=== PATIENT | female | born 1995 | race Caucasian/White ===

== ENCOUNTER 2020-10-10 10:45 | Emergency (ER) | payer OTHER ==
[~2020-10-10] VITALS: Ht 154.9 cm; Wt 55.5 kg
[2020-10-10 10:45] VITALS: BP 112/80
[~2020-10-10 10:45] MED LIST: SODIUM CHLORIDE 0.9% INJ 10 ML SYR IV SCH
[2020-10-10] MEDS ORDERED: LANTINJ4 SC (10:55)
[2020-10-10] MEDS ORDERED: NOVOINJ SC (10:55)
[2020-10-10] MEDS ORDERED: PROZ40CA PO (10:55)
[2020-10-10] MEDS ORDERED: PROM50TA4 PO (10:55)
[2020-10-11] MEDS ORDERED: SODIUM CHLORIDE 0.9% INJ 10 ML SYR IV SCH (09:00)
== END 2020-10-10 11:48 | disposition home or self-care (01) ==
LOC: M ED 10:45
DX: Z45.2 Encounter for adjustment and management of vascular access device (principal); E10.9 Type 1 diabetes mellitus without complications; K31.84 Gastroparesis; Z79.4 Long term (current) use of insulin; Z79.899 Other long term (current) drug therapy; Z88.0 Allergy status to penicillin; Z88.6 Allergy status to analgesic agent; Z88.8 Allergy status to other drugs, medicaments and biological substances
CPT/HCPCS: 96523; 99283; J1642

== ENCOUNTER → 2020-11-27 | Outpatient (REF) | payer OTHER ==
[~2020-11-27] MED LIST changes: +LANTINJ4 SC; +NOVOINJ SC; +PROM50TA4 PO; +PROZ40CA PO; -SODIUM CHLORIDE 0.9% INJ 10 ML SYR IV SCH
[2020-11-27 17:50] LABS: CREATININE, URINE 72.3 MG/DL; MAU/CREAT RATIO 153.5 MCG/MG (0.0-30.0)
== END ==
LOC: M LAB REF 16:45
PROVIDERS: ATTEND Nurse Practitioner Family
DX: E10.319 Type 1 diabetes mellitus with unspecified diabetic retinopathy without macular edema (principal)

== ENCOUNTER 2021-01-06 06:07 | Emergency (ER) | payer OTHER ==
[~2021-01-06] VITALS: Ht 154.9 cm; Wt 58.0 kg
[2021-01-06] MEDS ORDERED: NS 1,000 ML IV ONE (06:25)
--- NOTE | 2021-01-06 08:00 | REP ---
INDICATION: verify port placement. COMPARISON: None. TECHNIQUE: It sitting AP portable chest x-ray: Single-view. FINDINGS: Monitoring electrodes are seen. There is a left-sided subclavian Besolk-S-Htpc catheter noted with its tip in the expected location of superior vena cava. There are clips in right upper quadrant the abdomen. The lung thomas are clear. The pleural angles are sharp. Heart is not enlarged. Pulmonary vasculature is not increased. No bony abnormality is seen. IMPRESSION: Left-sided Kkezmr-L-Dwhx catheter with its tip in the expected location of the SVC. No active cardiopulmonary disease. Right upper quadrant clips. <Electronically signed by Akil Cortés > 01/06/21 [id number]
[2021-01-06 08:37] LABS: VENOUS BASE EXCESS -0.9 (-2.0-2.0); VENOUS O2 SATURATION 91.3 % (60.0-80.0); VENOUS PARTIAL PRESSURE CO2 41.1 mmHg (38.0-50.0); VENOUS PARTIAL PRESSURE O2 57.4 mmHg (30.0-50.0); VENOUS PH 7.385 UNITS (7.330-7.430); VENOUS STANDARD HCO3 23.5 MEQ/L; VENOUS TOTAL CO2 25.3 MEQ/L (24.0-28.0)
[2021-01-06 08:46] LABS: BASO # 0.1 10^3/uL (0.0-0.2); EOS # 0.2 10^3/uL (0.0-0.5); EOS % 2.3 % (0.0-3.0); HEMATOCRIT 45.6 % (36.0-47.0); HEMOGLOBIN 15.1 g/dl (12.0-15.5); LYMPH # 2.2 10^3/uL (1.5-5.0); LYMPH % 27.7 % (24.0-44.0); MEAN CORPUSCULAR HEMOGLOBIN 27.2 pg (27.0-33.0); MEAN CORPUSCULAR HGB CONC 33.1 g/dl (32.0-36.5); MEAN CORPUSCULAR VOLUME 82.2 fl (80.0-96.0); MONO # 0.5 10^3/uL (0.0-0.8); MONO % 5.8 % (2.0-8.0); NEUTROPHILS % 62.9 % (36.0-66.0); PLATELET COUNT, AUTOMATED 234 10^3/uL (150-450); RED BLOOD COUNT 5.55 10^6/uL (4.00-5.40)
[2021-01-06 09:07] LABS: ALT/SGPT 17 U/L (12-78); BILIRUBIN,DIRECT 0.1 MG/DL (0.0-0.2); BILIRUBIN,TOTAL 0.3 MG/DL (0.2-1.0); BLOOD UREA NITROGEN 14 MG/DL (7-18); CALCIUM LEVEL 9.3 MG/DL (8.5-10.1); CARBON DIOXIDE LEVEL 26 MEQ/L (21-32); CHLORIDE LEVEL 106 MEQ/L (98-107); CREATININE FOR GFR 0.79 MG/DL (0.55-1.30); ETHYL ALCOHOL (ETHANOL) < 0.003 % (0.000-0.010); GLOMERULAR FILTRATION RATE > 60.0 (>60); GLUCOSE, FASTING 140 MG/DL (70-100); LIPASE 26 U/L (73-393); PHOSPHORUS LEVEL 3.3 MG/DL (2.5-4.9); POTASSIUM SERUM 4.2 MEQ/L (3.5-5.1); SODIUM LEVEL 136 MEQ/L (136-145); TOTAL PROTEIN 7.5 GM/DL (6.4-8.2)
[2021-01-06] MEDS ORDERED: PROMETHAZINE INJ 25 MG/ML VIAL (J2550) IV ONE (09:45)
[2021-01-06 10:17] LABS: OSMOLALITY SERUM 291 MOSM/KG (275-295)
[2021-01-06 10:31] LABS: ACETONE/KETONE 5.16 MG/DL (<2.81)
[2021-01-06 11:00] LABS: AMPHETAMINES LEVEL URINE NEGATIVE (NEGATIVE); BARBITURATES URINE NEGATIVE (NEGATIVE); BENZODIAZEPINES URINE NEGATIVE (NEGATIVE); CANNABINOIDS URINE POSITIVE (NEGATIVE); COCAINE METABOLITE URINE NEGATIVE (NEGATIVE); METHADONE URINE NEGATIVE (NEGATIVE); OPIATES URINE NEGATIVE (NEGATIVE); PHENCYCLIDINE URINE NEGATIVE (NEGATIVE)
[2021-01-06] MEDS ORDERED: MACR100C43 PO (11:41)
[2021-01-06 11:45] VITALS: BP 133/76
--- NOTE | 2021-01-07 03:11 | ECGEPIP ---
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
== END 2021-01-06 12:10 | disposition home or self-care (01) ==
LOC: M ED 06:07
DX: E10.65 Type 1 diabetes mellitus with hyperglycemia (principal); F12.19 Cannabis abuse with unspecified cannabis-induced disorder; N39.0 Urinary tract infection, site not specified; R00.0 Tachycardia, unspecified; F33.9 Major depressive disorder, recurrent, unspecified; F41.9 Anxiety disorder, unspecified; Z79.899 Other long term (current) drug therapy; Z79.4 Long term (current) use of insulin; Z88.0 Allergy status to penicillin; Z88.8 Allergy status to other drugs, medicaments and biological substances
CPT/HCPCS: 36415; 71045; 80048; 80076; 80307; 81001; 82010; 82077; 82803; 83036; 83605; 83690; 83735; 83930; 84100; 84702; 85025; 87088; 87186; 93005; 93041; 94760; 96361; 96374; 96375; 99285; J1642

== ENCOUNTER 2021-06-14 08:47 | Emergency (ER) | payer OTHER ==
[~2021-06-14] VITALS: Ht 165.1 cm; Wt 57.7 kg
[~2021-06-14 08:47] MED LIST changes: +MACR100C43 PO
[2021-06-14] MEDS ORDERED: PROMETHAZINE INJ 25 MG/ML VIAL (J2550) IV ONE (09:20)
[2021-06-14] MEDS ORDERED: NS 1,000 ML IV ONE (09:25)
[2021-06-14 10:14] LABS: BASO # 0.1 10^3/uL (0.0-0.2); BASO % 0.6 % (0.0-1.0); EOS # 0.1 10^3/uL (0.0-0.5); EOS % 0.7 % (0.0-3.0); HEMATOCRIT 42.6 % (36.0-47.0); HEMOGLOBIN 13.5 g/dl (12.0-15.5); LYMPH # 1.2 10^3/uL (1.5-5.0); MEAN CORPUSCULAR HEMOGLOBIN 27.4 pg (27.0-33.0); MEAN CORPUSCULAR HGB CONC 31.7 g/dl (32.0-36.5); MEAN CORPUSCULAR VOLUME 86.6 fl (80.0-96.0); MONO # 0.4 10^3/uL (0.0-0.8); MONO % 2.8 % (2.0-8.0); NEUTROPHILS # 10.5 10^3/uL (1.5-8.5); NEUTROPHILS % 85.4 % (36.0-66.0); PLATELET COUNT, AUTOMATED 213 10^3/uL (150-450); RED BLOOD COUNT 4.92 10^6/uL (4.00-5.40); WHITE BLOOD COUNT 12.3 10^3/uL (4.0-10.0)
[2021-06-14] MEDS ORDERED: PROCHLORPERAZINE 10MG/2ML VIAL (J0780 PER 1) IV STA (10:22)
[2021-06-14] MEDS ORDERED: diphenhydrAMINE 50MG/ML VIAL (J1200) IV STA (10:22)
[2021-06-14 10:28] LABS: INR 0.84; PROTHROMBIN TIME 11.9 SECONDS (12.7-14.5)
[2021-06-14 10:38] LABS: RSV AMPLIFICATION NEGATIVE (NEGATIVE)
[2021-06-14 12:15] VITALS: BP 152/99
[2021-06-14 12:16] LABS: ALBUMIN 3.9 GM/DL (3.2-5.2); ALT/SGPT 23 U/L (12-78); BILIRUBIN,DIRECT 0.2 MG/DL (0.0-0.2); BILIRUBIN,TOTAL 0.7 MG/DL (0.2-1.0); BLOOD UREA NITROGEN 21 MG/DL (7-18); CALCIUM LEVEL 9.3 MG/DL (8.5-10.1); CARBON DIOXIDE LEVEL 20 MEQ/L (21-32); CHLORIDE LEVEL 101 MEQ/L (98-107); CREATININE FOR GFR 0.89 MG/DL (0.55-1.30); GLOMERULAR FILTRATION RATE > 60.0 (>60); GLUCOSE, FASTING 542 MG/DL (70-100); LIPASE 30 U/L (73-393); POTASSIUM SERUM 4.3 MEQ/L (3.5-5.1); SODIUM LEVEL 137 MEQ/L (136-145); TOTAL PROTEIN 7.6 GM/DL (6.4-8.2)
[2021-06-14 12:20] LABS: HCG, SERUM QUALITATIVE NEGATIVE (NEGATIVE)
[2021-06-14] MEDS ORDERED: SODIUM CHLORIDE 0.9% INJ 10 ML SYR IV PRN (12:25)
[2021-06-14] MEDS ORDERED: ERGO500029 PO (12:28)
[2021-06-14] MEDS ORDERED: PROM25TA12 PO (12:28)
[2021-06-14] MEDS ORDERED: OLAN1TAB16 PO (12:28)
[2021-06-14] MEDS ORDERED: HOME MED LIST COMPLETE! XX SCH (12:30)
--- NOTE | 2021-06-14 17:17 | ECGEPIP ---
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
== END 2021-06-14 12:33 | disposition left against medical advice (07) ==
LOC: M ED 08:47
DX: E10.65 Type 1 diabetes mellitus with hyperglycemia (principal); K92.2 Gastrointestinal hemorrhage, unspecified; Z79.899 Other long term (current) drug therapy; Z79.4 Long term (current) use of insulin; Z88.0 Allergy status to penicillin; Z88.8 Allergy status to other drugs, medicaments and biological substances; F12.20 Cannabis dependence, uncomplicated

== ENCOUNTER 2021-06-14 20:10 | Inpatient (IN) | payer OTHER ==
[~2021-06-14] VITALS: Ht 154.9 cm; Wt 55.8 kg
[~2021-06-14 20:10] MED LIST changes: +ERGO500029 PO; +OLAN1TAB16 PO; +PROM25TA12 PO
[2021-06-14] MEDS ORDERED: PROMETHAZINE INJ 25 MG/ML VIAL (J2550) IM ONE (21:55)
[2021-06-14] MEDS ORDERED: NS 1,000 ML IV ONE ×2 (22:15→22:55)
[2021-06-14 22:24] LABS: BASO # 0.1 10^3/uL (0.0-0.2); BASO % 0.6 % (0.0-1.0); HEMOGLOBIN 13.3 g/dl (12.0-15.5); LYMPH # 1.3 10^3/uL (1.5-5.0); LYMPH % 12.5 % (24.0-44.0); MEAN CORPUSCULAR HEMOGLOBIN 27.5 pg (27.0-33.0); MEAN CORPUSCULAR HGB CONC 32.4 g/dl (32.0-36.5); MEAN CORPUSCULAR VOLUME 84.7 fl (80.0-96.0); MONO # 0.3 10^3/uL (0.0-0.8); MONO % 2.8 % (2.0-8.0); NEUTROPHILS # 8.7 10^3/uL (1.5-8.5); NEUTROPHILS % 83.6 % (36.0-66.0); PLATELET COUNT, AUTOMATED 226 10^3/uL (150-450); RED BLOOD COUNT 4.84 10^6/uL (4.00-5.40); WHITE BLOOD COUNT 10.4 10^3/uL (4.0-10.0)
[2021-06-14 22:45] LABS: VENOUS BASE EXCESS -3.4 (-2.0-2.0); VENOUS HCO3 20.5 MEQ/L (23.0-27.0); VENOUS PARTIAL PRESSURE CO2 33.7 mmHg (38.0-50.0); VENOUS PARTIAL PRESSURE O2 68.7 mmHg (30.0-50.0); VENOUS PH 7.403 UNITS (7.330-7.430); VENOUS STANDARD HCO3 21.6 MEQ/L; VENOUS TOTAL CO2 21.6 MEQ/L (24.0-28.0)
[2021-06-14] MEDS ORDERED: PANTOPRAZOLE 40MG VIAL (C9113 PER 1) IV ONE (23:00)
[2021-06-14] MEDS: MORPHINE 2 MG/ML 1ML VIAL (J2270) IV PRN ×2 (23:04→23:19)
[2021-06-14 23:17] LABS: HEMOGLOBIN A1c 12.1 %; OSMOLALITY SERUM 313 MOSM/KG (275-295)
[2021-06-14 23:20] LABS: HCG, SERUM QUALITATIVE NEGATIVE (NEGATIVE)
[2021-06-14 23:26] LABS: ALBUMIN 3.7 GM/DL (3.2-5.2); ALT/SGPT 20 U/L (12-78); BILIRUBIN,DIRECT 0.1 MG/DL (0.0-0.2); BILIRUBIN,TOTAL 0.4 MG/DL (0.2-1.0); BLOOD UREA NITROGEN 19 MG/DL (7-18); CALCIUM LEVEL 8.8 MG/DL (8.5-10.1); CARBON DIOXIDE LEVEL 23 MEQ/L (21-32); CHLORIDE LEVEL 102 MEQ/L (98-107); CREATININE FOR GFR 0.95 MG/DL (0.55-1.30); GLOMERULAR FILTRATION RATE > 60.0 (>60); GLUCOSE, FASTING 393 MG/DL (70-100); LIPASE 44 U/L (73-393); POTASSIUM SERUM 3.7 MEQ/L (3.5-5.1); SODIUM LEVEL 139 MEQ/L (136-145); TOTAL PROTEIN 7.2 GM/DL (6.4-8.2)
[2021-06-14] MEDS ORDERED: HOME MED LIST COMPLETE! XX SCH (23:35)
[2021-06-15] VITALS (7 sets, daily range): BP systolic 104–190; BP diastolic 59–107
[2021-06-15] MEDS ORDERED: ISOVUE-370 76% 100ML VIAL As Ordered ONE (00:06)
[2021-06-15 00:26] LABS: ACETONE/KETONE > 46.00 MG/DL (<2.81)
[2021-06-15] MEDS ORDERED: diphenhydrAMINE 50MG/ML VIAL (J1200) IV STA (01:29)
[2021-06-15] MEDS ORDERED: PROCHLORPERAZINE 10MG/2ML VIAL (J0780 PER 1) IV ONE (01:30)
--- NOTE | 2021-06-15 01:38 | REPVR ---
PROCEDURE INFORMATION: Exam: XR Chest Exam date and time: 06/15/2021 12:32 AM Age: 26 years old Clinical indication: Other: Dka TECHNIQUE: Imaging protocol: XR of the chest. Views: 1 view. COMPARISON: FL Chest, 1 view 01/06/2021 7:49 AM FINDINGS: Tubes, catheters and devices: No change in position of tunneled vascular catheter Lungs: Degree of lung inflation is normal. No evidence of pulmonary edema. No focal consolidation or parenchymal lung mass. Pleural spaces: No pleural effusion or pneumothorax. Heart/Mediastinum: Cardiac silhouette appears normal. No adenopathy or hilar mass. Bones/joints: Osseous structures show no concerning abnormality. IMPRESSION: No acute or focal cardiopulmonary process. Electronically signed by: Homer Painting On 06/15/2021 01:38:25 AM
--- NOTE | 2021-06-15 01:46 | REPVR ---
PROCEDURE INFORMATION: Exam: CT Abdomen And Pelvis Without Contrast Exam date and time: 06/15/2021 12:55 AM Age: 26 years old Clinical indication: Nausea and vomiting; Additional info: Abdominal pain TECHNIQUE: Imaging protocol: Computed tomography of the abdomen and pelvis without contrast. Radiation optimization: All CT scans at this facility use at least one of these dose optimization techniques: automated exposure control; mA and/or kV adjustment per patient size (includes targeted exams where dose is matched to clinical indication); or iterative reconstruction. COMPARISON: CR PORTABLE CHEST X-RAY 06/15/2021 12:22 AM FINDINGS: Lungs: No suspicious mass or airspace process in the visualized lung bases. Liver: Noncontrast liver shows no obvious lesion. Gallbladder and bile ducts: Gallbladder is surgically absent. Pancreas: Noncontrast pancreas shows no obvious mass or adjacent fluid. Spleen: Noncontrast spleen shows no obvious focal deformity. Adrenal glands: Adrenal glands are normal in appearance. Kidneys and ureters: Kidneys show no stone or hydronephrosis. Stomach and bowel: No evidence of small bowel obstruction. No evidence of acute diverticulitis. Appendix: Appendix is not visualized. Cecal tip suture line suggests prior appendix resection. Intraperitoneal space: No pneumoperitoneum. Vasculature: . No abdominal aortic aneurysm. Lymph nodes: No enlarged lymph nodes. Urinary bladder: Urinary bladder is distended. Reproductive: Female reproductive organs appear unremarkable. Bones/joints: Bony structures show no acute fracture or destructive process. Soft tissues: Unremarkable. Other findings: Limited evaluation without enteric or IV contrast. IMPRESSION: 1. No evidence of renal stone or obstruction. 2. Urinary bladder distension which may be voluntary Electronically signed by: Homer Painting On 06/15/2021 01:45:59 AM
[2021-06-15] MEDS ORDERED: GLUCOSE 4GM CHEW TABLET PO PRN (03:30)
[2021-06-15] MEDS ORDERED: ONDANSETRON 4MG/2ML VIAL IV PRN (03:30)
[2021-06-15] MEDS ORDERED: DEXTROSE 50% 50 ML SYRINGE IV PRN (03:30)
[2021-06-15] MEDS ORDERED: GLUCAGON INJ 1MG VIAL SC PRN (03:30)
[2021-06-15] MEDS ORDERED: PROMETHAZINE INJ 25 MG/ML VIAL (J2550) IV PRN (03:30)
[2021-06-15] MEDS ORDERED: NS 1,000 ML IV SCH (03:30)
[2021-06-15] MEDS ORDERED: ACETAMINOPHEN TAB 650MG DOSE (2X325MG) PO PRN (03:30)
[2021-06-15] MEDS ORDERED: ONDANSETRON 4MG/2ML VIAL IV SCH (04:00)
[2021-06-15 04:14] LABS: RSV AMPLIFICATION NEGATIVE (NEGATIVE)
[2021-06-15] MEDS ORDERED: LORazepam 2 MG/ML VIAL IV STA (04:18)
[2021-06-15] MEDS ORDERED: LORazepam 2 MG/ML VIAL As Ordered ONE (04:26)
[2021-06-15] MEDS: HumaLOG INSULIN (NovoLOG) PER UNIT SC SCH ×5 (04:36→19:40)
--- NOTE | 2021-06-15 04:55 | HPEPDOC ---
General Date of Admission 06/15/21 Date of Service: Jun 15, 2021 Chief Complaint Nausea/Vomiting. History of Present Illness Moon Patino is a 26-year-old female with significant history of diabetes, anxiety disorder, gastroparesis who arrives with intractable nausea vomiting since 6 AM. Patient exam extremely limited by patient violently dry heaving and reporting she is having an active panic attack upon entrance to exam room. Patient notably hyperactive and tachypneic. She reports that she is claustrophobic and was offered to open door to help with the sensation and to proceed with exam and patient bolted to Claudio. Patient was encouraged to proceed back into her room and door could remain slightly open to decrease claustrophobia and she finally did agree. Patient calmed somewhat with soothing tones and plan for small Ativan dose to help with her dry heaving. Patient still sporadically dry heaving in bucket next to bed during exam. [facility] assisted with patient's boyfriend at bedside. He reports that patient violently started having nausea/vomiting at 6 AM. Therefore, patient has not had any of her home medications since 06/13, which includes medication for anxiety. Patient improve mood with further calming and de-escalation techniques and she reports she does have a history of gastroparesis and this feels similar to as a previous episode. She has seen Dr. Gillis with endocrinology but is looking for a new provider as she had discord with Dr. Madden reportedly. Patient reports that her blood sugars "have been good". She reports compliance with her medications. She denies smoking but does endorse marijuana use - describes no increase or sudden cessation recently prior to hyperemesis event. She does endorse a recent tooth pulling but as she is allergic to amoxicillin she was only given hydrocodone from the dentist. Otherwise she does note vaguely increased personal stressors but does not specify what these are.she reports that she has an allergy to Reglan which has limited her treatment of gastroparesis. Besides the discomfort abdominal pain/soreness from dry heaving and the sensation of a panic attack ( typically includes SOB and palpitation) -pt oth erwise denies recent wyatt, sinus congestion, sore throat, productive cough, sob, chest pain, d, weakness, sensory changes or syncope. Through calling de-escalation techniques patient was able to relax and asked for ice chips at end of exam. Home Medications Scheduled Ergocalciferol (Vitamin D2) (Vitamin D2) 50,000 Units Cap, 50,000 UNITS PO QWEEK, (Reported) MONDAYS Fluoxetine HCl (Prozac) 40 Mg Capsule, 40 MG PO BID, (Reported) Insulin Aspart (Novolog) 100 Unit/1 Ml Cartridge, 1 DOSE SC AC, (Reported) PER SLIDING SCALE Insulin Glargine,Hum.rec.anlog (Lantus Solostar) 100 Unit/1 Ml Insuln.pen, 20 UNIT SC QHS, (Reported) Olanzapine (Olanzapine) 5 Mg Tablet, 5 MG PO DAILY, (Reported) Scheduled PRN Promethazine HCl (Promethazine HCl) 25 Mg Tablet, 25 MG PO Q4H PRN for NAUSEA OR VOMITING, (Reported) Allergies Coded Allergies: amoxicillin (Verified Allergy, Severe, Hives/Throat Swelling, 06/14/21) chlorpromazine (Verified Allergy, Intermediate, HIVES, 06/14/21) HAS TAKEN COMPAZINE WITH NO ISSUES haloperidol (Verified Allergy, Intermediate, HIVES, 06/14/21) metoclopramide (Verified Allergy, Intermediate, HIVES, 06/14/21) ondansetron (Verified Allergy, Mild, hives, 06/17/21) Penicillins (Verified Allergy, Unknown, 10/10/20) ketorolac (Verified Allergy, Unknown, 01/06/21) ibuprofen (Verified Adverse Reaction, Intermediate, GI Bleed, 06/14/21) prochlorperazine (Verified Adverse Reaction, Mild, 06/14/21) Itchy - but can use benedryl as premedicate Past Medical History Medical History Diabetes, gastroparesis, anxiety Surgical History Cholecystectomy and appendectomy Family History Significant Family History: No pertinent family hx Social History * Smoker: Denies Alcohol: Denies Drugs: marijuana Recent Travel/Sick Contacts: Denies: Recent travel, Recent sick contacts Psychosocial History: Anxiety A-FIB/CHADSVASC A-FIB History Current/History of A-Fib/PAF?: No Current PO Anticoag Therapy: No Review of Systems Constitutional: Denies: Chills, Fever, Night Sweats Eyes: Denies: Pain, Vision change ENT: Denies: Head Aches, Ear Pain, Dysphagia Skin: Denies: Rash, Lesions, Breakdown Pulmonary: Denies: Dyspnea, Cough Cardiovascular: Reports: Palpitations; Denies: Chest Pain, Orthopnea, Paroxysmal Noc. Dyspnea, Lt Headedness Gastrointestinal: Reports: Nausea, Vomiting, Abdominal Pain; Denies: Diarrhea Genitourinary: Denies: Dysuria, Frequency, Incontinence, Retention Hematologic: Denies: Bruising, Bleeding Excessively Musculoskeletal: Denies: Neck Pain, Back Pain, Joint Pain, Muscle Pain, Spasms Neurological: Denies: Weakness, Numbness, Change in speech, Confusion Psych: Reports: Anxiety; Denies: Depression, Memory Issues Physical Examination General Exam: Positive: Alert, Other (Notable panic attack) Eye Exam: Positive: PERRLA, Conjunctiva & lids normal, EOMI; Negative: Sclera icteric ENT Exam: Positive: Atraumatic, Mucous membr. moist/pink, Pharynx Normal Neck Exam: Positive: Supple; Negative: JVD, thyromegaly Chest Exam: Positive: Clear to auscultation, Normal air movement Heart Exam: Positive: Tachycardic, Regular Rhythm, Normal S1, Normal S2; Negative: Murmurs, Rubs Telemetry: Positive: Sinus, Tachycardia Abdomen Exam: Positive: BS Hyperactive, Soft; Negative: Tenderness, Hepatospenomegaly Extremity Exam: Positive: Normal pulses; Negative: Clubbing, Cyanosis, Edema Skin Exam: Positive: Nl turgor and temperature; Negative: Breakdown, Lesion Neuro Exam: Positive: Normal Gait, Normal Speech, Cranial Nerves 3-12 NL, Reflexes 2+ Psych Exam: Positive: Mental status NL, Anxiety, Oriented x 3 Vital Signs Vital Signs Date Time Temp Pulse Resp B/P (MAP) Pulse Ox O2 Delivery O2 Flow Rate FiO2 06/15/21 02:13 98 18 99 Room Air 06/15/21 01:01 98.7 102/60 (74) Laboratory Data Labs 24H Laboratory Tests 2 06/14/21 20:59: Immature Granulocyte % (Auto) 0.5, Neutrophils (%) (Auto) 83.6H, Lymphocytes (%) (Auto) 12.5L, Monocytes (%) (Auto) 2.8, Eosinophils (%) (Auto) 0.0, Basophils (%) (Auto) 0.6, Neutrophils # (Auto) 8.7H, Lymphocytes # (Auto) 1.3L, Monocytes # (Auto) 0.3, Eosinophils # (Auto) 0.0, Basophils # (Auto) 0.1, Nucleated Red Blood Cells % (auto) 0.0 06/14/21 21:00: Urine Color YELLOW, Urine Appearance HAZY, Urine pH 6.0, Urine Specific [place] 1.027, Urine Protein 1+H, Urine Glucose (UA) 3+H, Urine Ketones 2+H, Urine Blood 1+H, Urine Nitrite NEGATIVE, Urine Bilirubin NEGATIVE, Urine Urobilinogen 0.2, Urine Leukocyte Esterase NEGATIVE, Urine WBC (Auto) 2, Urine RBC (Auto) 4H, Urine Hyaline Casts (Auto) 0, Urine Bacteria (Auto) NEGATIVE, Urine Squamous Epithelial Cells 7, Urine Sperm (Auto) 06/14/21 22:32: Blood Gas Bicarbonate Standard 21.6, Venous Blood pH 7.403, Venous Blood Partial Pressure CO2 33.7L, Venous Blood Partial Pressure O2 68.7H, Venous Blood Total Carbon Dioxide 21.6L, Venous Blood HCO3 20.5L, Venous Blood Oxygen Saturation 94.0H, Venous Blood Base Excess -3.4L, Anion Gap 14, Glomerular Filtration Rate > 60.0, Estimated Mean Plasma Glucose 301H, Hemoglobin A1c 12.1, Osmolality 313H, Calcium Level 8.8, Total Bilirubin 0.4, Direct Bilirubin 0.1, Aspartate Amino Transf (AST/SGOT) 15, Alanine Aminotransferase (ALT/SGPT) 20, Alkaline Phosphatase 93, Total Protein 7.2, Albumin 3.7, Albumin/Globulin Ratio 1.1L, Lipase 44L, Human Chorionic Gonadotropin, Qual NEGATIVE, B-Hydroxybutyrate > 46.00H 06/15/21 03:24: CBC/BMP Laboratory Tests 06/14/21 20:59 06/14/21 22:32 Microbiology Microbiology 06/14/21 Blood Culture, Received Pending 06/14/21 Blood Culture, Received Pending Assessment/Plan 1. Intractable nausea vomiting secondary to gastroparesis: -Likely aggravated by anxiety component as well -Monitor patient, telemetry -Electrolyte management and repletion per protocol -Hydration -Scheduled Zofran and as needed Phenergan -Clear liquid diet with advance as tolerated -A.m. lab 2. Hyperglycemia in diabetic: Thankfully not in DKA. -Monitor patient, Accu-Chek every 4 hours with sliding scale insulin. -Continue long-acting once reconciled -A.m. lab. Check A1c -Goal for diabetic diet -Encourage endocrinology appointment at [facility] [place]. 3. SIRS: With tachycardia and mild leukocytosis: WBC 10.4. Not uncommon in daily smoker (patient describes marijuana use -not cigarettes ). UA and chest x -ray negative. Could be reactive given above. Patient did endorse a recent tooth pulled on the upper left. Does not appear with abscess upon inspection. Patient notably anxious during exam and this could explain the tachycardia as well as dehydration from hyperemesis. -Check procalcitonin. Will hold off on antibiotics at present. -Check magnesium given tachycardia. 4. Anxiety: Patient with acute anxious episode/panic attack during exam. -Plan to monitor patient encourage de-escalation techniques and expression. -Did offer one-time Ativan dose as this could also help with nausea vomiting. -continue patient's home medications and consider psych consult given patient reports some increase home stressors -UDS pending for consideration of withdrawal type behavior 5. Marijuana use: Encourage cessation as this may be contributing to hyperemesis. UDS pending DVT: Uzair score low, plan for early ambulation CODE STATUS: Full Dispo planning: Home once tolerating p.o. Plan / VTE VTE Prophylaxis Ordered?: No VTE Exclusion Mechanical Proph: Low Risk for VTE VTE Exclusion Pharmacological: At Low Risk for VTE CADY SHINE NP Jun 15, 2021 03:43 JADEN DIAL MD Jun 22, 2021 06:30
[2021-06-15 06:21] LABS: BASO % 0.3 % (0.0-1.0); EOS # 0.2 10^3/uL (0.0-0.5); EOS % 1.9 % (0.0-3.0); HEMOGLOBIN 11.4 g/dl (12.0-15.5); LYMPH # 1.4 10^3/uL (1.5-5.0); LYMPH % 11.7 % (24.0-44.0); MEAN CORPUSCULAR HEMOGLOBIN 27.6 pg (27.0-33.0); MEAN CORPUSCULAR HGB CONC 31.7 g/dl (32.0-36.5); MEAN CORPUSCULAR VOLUME 87.2 fl (80.0-96.0); MONO # 0.7 10^3/uL (0.0-0.8); NEUTROPHILS # 9.6 10^3/uL (1.5-8.5); NEUTROPHILS % 79.6 % (36.0-66.0); PLATELET COUNT, AUTOMATED 217 10^3/uL (150-450); RED BLOOD COUNT 4.13 10^6/uL (4.00-5.40); WHITE BLOOD COUNT 12.1 10^3/uL (4.0-10.0)
[2021-06-15 06:28] LABS: AMPHETAMINES LEVEL URINE NEGATIVE (NEGATIVE); BARBITURATES URINE NEGATIVE (NEGATIVE); BENZODIAZEPINES URINE NEGATIVE (NEGATIVE); CANNABINOIDS URINE NEGATIVE (NEGATIVE); COCAINE METABOLITE URINE NEGATIVE (NEGATIVE); METHADONE URINE NEGATIVE (NEGATIVE); OPIATES URINE NEGATIVE (NEGATIVE); PHENCYCLIDINE URINE NEGATIVE (NEGATIVE)
[2021-06-15 06:38] LABS: BLOOD UREA NITROGEN 17 MG/DL (7-18); CALCIUM LEVEL 8.1 MG/DL (8.5-10.1); CARBON DIOXIDE LEVEL 19 MEQ/L (21-32); CHLORIDE LEVEL 107 MEQ/L (98-107); CREATININE FOR GFR 0.75 MG/DL (0.55-1.30); GLOMERULAR FILTRATION RATE > 60.0 (>60); GLUCOSE, FASTING 389 MG/DL (70-100); POTASSIUM SERUM 3.6 MEQ/L (3.5-5.1); SODIUM LEVEL 141 MEQ/L (136-145)
--- NOTE | 2021-06-15 07:44 | ECGEPIP ---
[facility] - ED Test Date: 2021-06-14 Pat Name: ANNALISA TA Department: Room: [place] [address] Gender: Female Temporary Administrative Assistant: MIKE JEROMEB: 1995 Requested By: JULIANO Moore Order Number: [id number] Reading MD: Juliano Lopez Measurements Intervals [place] Rate: 125 P: 67 OK: 142 QRS: 82 QRSD: 72 T: 77 QT: 338 QTc: 487 Interpretive Statements Sinus tachycardia Nonspecific ST and T wave abnormality Similar to tracing done 06-14-21 at 10:27 Electronically Signed on 06-15-2021 7:44:14 EDT by Juliano Lopez
[2021-06-15] MEDS ORDERED: HumaLOG INSULIN (NovoLOG) PER UNIT SC STA (08:00)
[2021-06-15] MEDS ORDERED: NS 1,000 ML IV ONE (08:25)
[2021-06-15] MEDS ORDERED: diphenhydrAMINE 50MG/ML VIAL (J1200) IV PRN (08:35)
[2021-06-15] MEDS: FLUoxetine 20 MG CAP PO SCH ×2 (08:56→19:36)
[2021-06-15] MEDS: PROMETHAZINE INJ 25 MG/ML VIAL (J2550) IV SCH ×3 (08:56→19:39)
[2021-06-15] MEDS: LEVEMIR (INSULIN DETEMIR) 1 UNITS/0.01ML SC SCH ×2 (08:56→21:00)
[2021-06-15] MEDS: OLANZapine 5 MG TAB PO SCH (08:56)
[2021-06-15] MEDS: NS 1,000 ML IV SCH ×2 (08:58→10:00)
[2021-06-15] MEDS ORDERED: SLF 3 ML SYR IV PRN (09:20)
[2021-06-15] MEDS ORDERED: MORPHINE 2 MG/ML 1ML VIAL (J2270) IV ONE (10:15)
[2021-06-15] MEDS ORDERED: NALOXONE INJ 0.4MG/1ML VIAL (J2310 PER 1MG) IV PRN (10:15)
[2021-06-15 10:38] LABS: ACETONE/KETONE 30.21 MG/DL (<2.81); BLOOD UREA NITROGEN 13 MG/DL (7-18); CALCIUM LEVEL 7.4 MG/DL (8.5-10.1); CARBON DIOXIDE LEVEL 19 MEQ/L (21-32); CHLORIDE LEVEL 116 MEQ/L (98-107); CREATININE FOR GFR 0.81 MG/DL (0.55-1.30); GLOMERULAR FILTRATION RATE > 60.0 (>60); GLUCOSE, FASTING 211 MG/DL (70-100); MAGNESIUM LEVEL 1.8 MG/DL (1.8-2.4); PHOSPHORUS LEVEL 1.7 MG/DL (2.5-4.9); POTASSIUM SERUM 3.4 MEQ/L (3.5-5.1); SODIUM LEVEL 147 MEQ/L (136-145)
[2021-06-15] MEDS ORDERED: D5W 1,000 ML IV SCH (11:00)
[2021-06-15] MEDS: SODIUM BICARBONATE 325 MG TAB PO SCH ×2 (11:29→19:36)
[2021-06-15] MEDS: MORPHINE 30 MG TAB **MSIR PO PRN ×2 (13:21→19:38)
[2021-06-15] MEDS ORDERED: POTASSIUM PHOSPHATE INJ 30 MMOL in D5W 500 ML IV ONE (14:00)
[2021-06-15] MEDS: SLF 3 ML SYR IV SCH ×2 (14:00→22:27)
[2021-06-15 14:49] LABS: BLOOD UREA NITROGEN 11 MG/DL (7-18); CALCIUM LEVEL 7.3 MG/DL (8.5-10.1); CARBON DIOXIDE LEVEL 24 MEQ/L (21-32); CHLORIDE LEVEL 115 MEQ/L (98-107); CREATININE FOR GFR 0.56 MG/DL (0.55-1.30); GLOMERULAR FILTRATION RATE > 60.0 (>60); GLUCOSE, FASTING 91 MG/DL (70-100); PHOSPHORUS LEVEL 1.7 MG/DL (2.5-4.9); POTASSIUM SERUM 3.2 MEQ/L (3.5-5.1); SODIUM LEVEL 145 MEQ/L (136-145)
[2021-06-15] MEDS ORDERED: POTASSIUM CHLORIDE 10 MEQ SR TABLET PO ONE (18:05)
[2021-06-15] MEDS ORDERED: DEXTROSE 50% 50 ML SYRINGE IV STA (19:01)
[2021-06-15] MEDS ORDERED: D5W 1000ML IV ONE (19:05)
[2021-06-15] MEDS ORDERED: POTASSIUM PHOSPHATE INJ 30 MMOL in D5W 500 ML IV SCH (20:00)
[2021-06-15] MEDS ORDERED: LEVEMIR (INSULIN DETEMIR) 1 UNITS/0.01ML SC SCH (21:00)
[2021-06-15] MEDS ORDERED: LORazepam 1 MG TAB PO ONE (22:00)
[2021-06-15 22:55] LABS: BLOOD UREA NITROGEN 8 MG/DL (7-18); CALCIUM LEVEL 7.6 MG/DL (8.5-10.1); CARBON DIOXIDE LEVEL 25 MEQ/L (21-32); CHLORIDE LEVEL 112 MEQ/L (98-107); GLOMERULAR FILTRATION RATE > 60.0 (>60); GLUCOSE, FASTING 196 MG/DL (70-100); POTASSIUM SERUM 3.7 MEQ/L (3.5-5.1); SODIUM LEVEL 142 MEQ/L (136-145)
[2021-06-16] MEDS: PROMETHAZINE INJ 25 MG/ML VIAL (J2550) IV SCH ×4 (03:12→21:33)
[2021-06-16 04:00] VITALS: BP 142/95
[2021-06-16] MEDS: HumaLOG INSULIN (NovoLOG) PER UNIT SC SCH ×6 (04:54→20:00)
[2021-06-16] MEDS: MORPHINE 30 MG TAB **MSIR PO PRN ×2 (04:55→21:32)
[2021-06-16] MEDS: SLF 3 ML SYR IV SCH ×3 (05:48→22:00)
[2021-06-16 07:32] VITALS: BP 140/88
[2021-06-16 08:56] LABS: BASO # 0.1 10^3/uL (0.0-0.2); BASO % 0.7 % (0.0-1.0); EOS % 0.2 % (0.0-3.0); HEMATOCRIT 37.2 % (36.0-47.0); HEMOGLOBIN 11.8 g/dl (12.0-15.5); LYMPH # 2.9 10^3/uL (1.5-5.0); MEAN CORPUSCULAR HEMOGLOBIN 27.7 pg (27.0-33.0); MEAN CORPUSCULAR HGB CONC 31.7 g/dl (32.0-36.5); MEAN CORPUSCULAR VOLUME 87.3 fl (80.0-96.0); MONO # 0.7 10^3/uL (0.0-0.8); MONO % 6.4 % (2.0-8.0); NEUTROPHILS # 6.9 10^3/uL (1.5-8.5); NEUTROPHILS % 65.1 % (36.0-66.0); PLATELET COUNT, AUTOMATED 197 10^3/uL (150-450); RED BLOOD COUNT 4.26 10^6/uL (4.00-5.40); WHITE BLOOD COUNT 10.6 10^3/uL (4.0-10.0)
[2021-06-16 09:18] LABS: BLOOD UREA NITROGEN 5 MG/DL (7-18); CARBON DIOXIDE LEVEL 26 MEQ/L (21-32); CHLORIDE LEVEL 109 MEQ/L (98-107); CREATININE FOR GFR 0.47 MG/DL (0.55-1.30); GLOMERULAR FILTRATION RATE > 60.0 (>60); GLUCOSE, FASTING 161 MG/DL (70-100); POTASSIUM SERUM 3.6 MEQ/L (3.5-5.1); SODIUM LEVEL 141 MEQ/L (136-145)
[2021-06-16] MEDS: SODIUM BICARBONATE 325 MG TAB PO SCH ×2 (09:51→21:32)
[2021-06-16] MEDS: LEVEMIR (INSULIN DETEMIR) 1 UNITS/0.01ML SC SCH ×2 (09:51→21:00)
[2021-06-16] MEDS: OLANZapine 5 MG TAB PO SCH (09:51)
[2021-06-16] MEDS: FLUoxetine 20 MG CAP PO SCH ×2 (09:51→21:32)
--- NOTE | 2021-06-16 11:35 | DS.PDOC ---
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 HOSPITAL COURSE: 26-year-old female with history of type 1 diabetes anxiety gastroparesis presented to the emergency room with intractable nausea vomiting for 1 day. she denied any fever chills but complained of persistent abdominal pain. She was found to have a glucose of 393 with normal anion gap. CT abdomen pelvis pelvis was negative for acute intra-abdominal pathology chest x-ray was negative. Coronavirus was negative. Patient was started on every 4 hourly fingersticks, basic metabolic panel every 4 hours to rule out early acidosis. She was kept on her Levemir insulin and insulin sliding scale with coverage. Patient developed hypoglycemia with increasing dose of Levemir at 15 units subcu twice daily With glucose of 58 and episodes of tremors and diaphoresis she was then given D5 infusion which improved. Nausea vomiting and abdominal pain improved with antiemetics, and her diet was advanced back to consistent carbohydrate diet which she tolerated well. Patient's glucose remained at 150 and she was discharged in stable condition with immediate follow-up with her science instructor there is no signs of infectious etiology and no antibiotics were given. DISCHARGE PHYSICAL EXAM: Vital signs: See below General: No distress HEENT no JVD thyromegaly cervical lymphadenopathy moist mucous membranes multiple tattoos noted on her skin Lungs are clear to auscultation wheezing rales or rhonchi Heart S1-S2 sinus rhythm no murmurs rubs or gallops Abdomen soft nontender nondistended positive bowel sounds no rebound or guarding Extremities no cyanosis clubbing or pitting edema DISCHARGE LABS IMAGING STUDIES MICROBIOLOGY: SEE BELOW Time spent on discharge 30 minutes Vital Signs/I&Os Vital Signs Date Time Temp Pulse Resp B/P (MAP) Pulse Ox O2 Delivery O2 Flow Rate FiO2 06/16/21 07:32 98.1 97 20 140/88 (105) 99 06/16/21 04:00 Room Air I&O- Last 24 Hours up to 6 AM 06/16/21 06:00 Intake Total 3950 ml Output Total 200 ml Balance 3750 ml Laboratory Data Labs 24H Laboratory Tests 2 06/15/21 14:05: Anion Gap 6L, Glomerular Filtration Rate > 60.0, Calcium Level 7.3L, Phosphorus Level 1.7L 06/15/21 15:48: Bedside Glucose (Misc Panel) 85 06/15/21 18:57: Bedside Glucose (Misc Panel) 58L 06/15/21 22:19: Anion Gap 5L, Glomerular Filtration Rate > 60.0, Calcium Level 7.6L 06/15/21 23:57: Bedside Glucose (Misc Panel) 195H 06/16/21 04:46: Bedside Glucose (Misc Panel) 215H 06/16/21 08:46: Immature Granulocyte % (Auto) 0.6, Neutrophils (%) (Auto) 65.1, Lymphocytes (%) (Auto) 27.0, Monocytes (%) (Auto) 6.4, Eosinophils (%) (Auto) 0.2, Basophils (%) (Auto) 0.7, Neutrophils # (Auto) 6.9, Lymphocytes # (Auto) 2.9, Monocytes # (Auto) 0.7, Eosinophils # (Auto) 0.0, Basophils # (Auto) 0.1, Nucleated Red Blood Cells % (auto) 0.0, Anion Gap 6L, Glomerular Filtration Rate > 60.0, Calcium Level 8.0L 06/16/21 09:42: Bedside Glucose (Misc Panel) 182H CBC/BMP Laboratory Tests 06/15/21 14:05 06/15/21 22:19 06/16/21 08:46 FSBS Laboratory Tests Test 06/15/21 15:48 06/15/21 18:57 06/15/21 23:57 06/16/21 04:46 Range/Units Bedside Glucose (Misc Panel) 85 58 195 215 70-105 MG/DL Test 06/16/21 09:42 Range/Units Bedside Glucose (Misc Panel) 182 70-105 MG/DL Microbiology Microbiology 06/14/21 Blood Culture - Preliminary, Resulted No growth after 24 hours . All specim... 06/14/21 Blood Culture - Preliminary, Resulted No growth after 24 hours . All specim... Discharge Medications Scheduled Ergocalciferol (Vitamin D2) (Vitamin D2) 50,000 Units Cap, 50,000 UNITS PO QWEEK, (Reported) MONDAYS Fluoxetine HCl (Prozac) 40 Mg Capsule, 40 MG PO BID, (Reported) Insulin Aspart (Novolog) 100 Unit/1 Ml Cartridge, 1 DOSE SC AC, (Reported) PER SLIDING SCALE Insulin Glargine,Hum.rec.anlog (Lantus Solostar) 100 Unit/1 Ml Insuln.pen, 20 UNIT SC QHS, (Reported) Olanzapine (Olanzapine) 5 Mg Tablet, 5 MG PO DAILY, (Reported) Scheduled PRN Promethazine HCl (Promethazine HCl) 25 Mg Tablet, 25 MG PO Q4H PRN for NAUSEA OR VOMITING, (Reported) Allergies Coded Allergies: amoxicillin (Verified Allergy, Severe, Hives/Throat Swelling, 06/14/21) chlorpromazine (Verified Allergy, Intermediate, HIVES, 06/14/21) HAS TAKEN COMPAZINE WITH NO ISSUES haloperidol (Verified Allergy, Intermediate, HIVES, 06/14/21) metoclopramide (Verified Allergy, Intermediate, HIVES, 06/14/21) Penicillins (Verified Allergy, Unknown, 10/10/20) ketorolac (Verified Allergy, Unknown, 01/06/21) ibuprofen (Verified Adverse Reaction, Intermediate, GI Bleed, 06/14/21) prochlorperazine (Verified Adverse Reaction, Mild, 06/14/21) Itchy - but can use benedryl as premedicate ZAY SESAY MD Jun 16, 2021 11:35
[2021-06-16] MEDS ORDERED: PROMETHAZINE INJ 25 MG/ML VIAL (J2550) IV ONE (12:30)
[2021-06-16] MEDS ORDERED: GI COCKTAIL 50ML BTL(HYOSCYAMINE/MAALOX/LIDOCAINE VISCOUS)(1:3:1) PO PRN (12:35)
[2021-06-16] MEDS ORDERED: NS 0.45% 500 ML IV ONE (12:35)
[2021-06-16 13:28] LABS: MAGNESIUM LEVEL 1.8 MG/DL (1.8-2.4); PHOSPHORUS LEVEL 1.4 MG/DL (2.5-4.9)
[2021-06-16 13:31] LABS: ALBUMIN 3.2 GM/DL (3.2-5.2); ALT/SGPT 20 U/L (12-78); AMYLASE 27 U/L (25-115); BILIRUBIN,TOTAL 0.3 MG/DL (0.2-1.0); BLOOD UREA NITROGEN 5 MG/DL (7-18); CALCIUM LEVEL 8.4 MG/DL (8.5-10.1); CARBON DIOXIDE LEVEL 27 MEQ/L (21-32); CHLORIDE LEVEL 108 MEQ/L (98-107); CREATININE FOR GFR 0.56 MG/DL (0.55-1.30); GLOMERULAR FILTRATION RATE > 60.0 (>60); GLUCOSE, FASTING 98 MG/DL (70-100); LIPASE 21 U/L (73-393); POTASSIUM SERUM 3.6 MEQ/L (3.5-5.1); SODIUM LEVEL 141 MEQ/L (136-145); TOTAL PROTEIN 6.5 GM/DL (6.4-8.2)
--- NOTE | 2021-06-16 14:00 | REP ---
INDICATION: n/v. COMPARISON: None. FINDINGS: KUB shows the intestinal gas pattern to be nonspecific. There are a few gas-filled mildly dilated small bowel lobes. Gas is seen in the rectosigmoid vault. The organ silhouettes insofar as delineated are unremarkable. There is no evidence of free intraperitoneal air. IMPRESSION: Nonspecific. Suspect mild ileus. <Electronically signed by Toro Martinez > 06/16/21 [id number]
[2021-06-16] MEDS ORDERED: DEXTROSE 50% 50 ML SYRINGE IV STA (15:38)
[2021-06-16] MEDS ORDERED: CALCIUM GLUCONATE 1,000 MG in D5W MINI-BAG PLUS 100 ML IV ONE (15:45)
[2021-06-16] MEDS: D5W/0.45% SODIUM CHLORIDE 1,000 ML IV SCH ×2 (15:57→22:20)
[2021-06-16 16:00] VITALS: BP 164/90
[2021-06-16] MEDS ORDERED: MORPHINE 4 MG/ML 1ML VIAL/SYRINGE (J2270) IV ONE (17:50)
[2021-06-16] MEDS ORDERED: KETOROLAC 30 MG/ML 1ML VIAL IV ONE (17:50)
[2021-06-16] MEDS ORDERED: POTASSIUM PHOSPHATE INJ 30 MMOL in D5W 500 ML IV SCH (18:00)
[2021-06-16 20:00] VITALS: BP 142/80
[2021-06-17] MEDS: HumaLOG INSULIN (NovoLOG) PER UNIT SC SCH ×6 (01:31→20:00)
[2021-06-17] MEDS: PROMETHAZINE INJ 25 MG/ML VIAL (J2550) IV SCH ×4 (02:35→20:32)
[2021-06-17 04:00] VITALS: BP 134/78
[2021-06-17] MEDS: D5W/0.45% SODIUM CHLORIDE 1,000 ML IV SCH (05:00)
[2021-06-17] MEDS ORDERED: ONDANSETRON 4MG/2ML VIAL IV ONE (05:00)
[2021-06-17] MEDS ORDERED: PROCHLORPERAZINE 5 MG TAB (S0183) PO ONE (05:30)
[2021-06-17] MEDS: SLF 3 ML SYR IV SCH ×3 (05:45→20:33)
[2021-06-17 07:20] LABS: BASO % 0.5 % (0.0-1.0); EOS % 0.3 % (0.0-3.0); HEMATOCRIT 36.7 % (36.0-47.0); HEMOGLOBIN 11.6 g/dl (12.0-15.5); LYMPH # 1.8 10^3/uL (1.5-5.0); LYMPH % 23.4 % (24.0-44.0); MEAN CORPUSCULAR HEMOGLOBIN 27.4 pg (27.0-33.0); MEAN CORPUSCULAR HGB CONC 31.6 g/dl (32.0-36.5); MEAN CORPUSCULAR VOLUME 86.6 fl (80.0-96.0); MONO # 0.5 10^3/uL (0.0-0.8); MONO % 6.4 % (2.0-8.0); NEUTROPHILS # 5.3 10^3/uL (1.5-8.5); NEUTROPHILS % 69.1 % (36.0-66.0); PLATELET COUNT, AUTOMATED 188 10^3/uL (150-450); RED BLOOD COUNT 4.24 10^6/uL (4.00-5.40); WHITE BLOOD COUNT 7.6 10^3/uL (4.0-10.0)
[2021-06-17 07:22] LABS: BLOOD UREA NITROGEN 4 MG/DL (7-18); CALCIUM LEVEL 7.6 MG/DL (8.5-10.1); CARBON DIOXIDE LEVEL 28 MEQ/L (21-32); CHLORIDE LEVEL 104 MEQ/L (98-107); CREATININE FOR GFR 0.54 MG/DL (0.55-1.30); GLOMERULAR FILTRATION RATE > 60.0 (>60); GLUCOSE, FASTING 201 MG/DL (70-100); POTASSIUM SERUM 3.5 MEQ/L (3.5-5.1); SODIUM LEVEL 137 MEQ/L (136-145)
[2021-06-17 07:27] VITALS: BP 158/95
[2021-06-17 08:27] LABS: PHOSPHORUS LEVEL 2.1 MG/DL (2.5-4.9)
[2021-06-17] MEDS ORDERED: GI COCKTAIL 50ML BTL(HYOSCYAMINE/MAALOX/LIDOCAINE VISCOUS)(1:3:1) PO PRN (08:40)
[2021-06-17] MEDS ORDERED: SUCRALFATE SUSP 1GM/10ML UD PO ONE (08:45)
--- NOTE | 2021-06-17 08:50 | IPNPDOC ---
Date Seen The patient was seen on 06/17/21. Progress Note S: dc postponed yesterday due to c/o nausea. on phenergan iv. unable to tolerate po diet. given d51/2 ns overnight. glucose controlled. says that she vomitted blood, but RN had no documentation, a nd hgb unchanged at 11. c/o nausea epigastric abd pain . PHYSICAL EXAM: Vital signs: See below General: no distress anicteric no jaundice speaks in full sentences HEENT no JVD thyromegaly cervical lymphadenopathy moist mucous membranes multiple tattoos noted on her skin Lungs are clear to auscultation wheezing rales or rhonchi Heart S1-S2 sinus rhythm no murmurs rubs or gallops Abdomen soft slight epigastric tender nondistended positive bowel sounds no rebound or guarding Extremities no cyanosis clubbing or pitting edema LABS IMAGING STUDIES MICROBIOLOGY: SEE BELOW A/P:26-year-old female with history of type 1 diabetes anxiety gastroparesis presented to the emergency room with intractable nausea vomiting for 1 day. she denied any fever chills but complained of persistent abdominal pain. She was found to have a glucose of 393 with normal anion gap. CT abdomen pelvis pelvis was negative for acute intra-abdominal pathology chest x-ray was negative. Coronavirus was negative. Patient was started on every 4 hourly fingersticks, basic metabolic panel every 4 hours to rule out early acidosis. She was kept on her Levemir insulin and insulin sliding scale with coverage. Patient developed hypoglycemia with increasing dose of Levemir at 15 units subcu twice daily With glucose of 58 and episodes of tremors and diaphoresis she was then given D5 infusion which improved. Nausea vomiting and abdominal pain improved with antiemetics, and her diet was changed to pureed diet due to severe gastroparesis. Hyperglycemia,resolved -resumed on home dose of levemir insulin -consistent carbs diet with fbg qachs w [facility] sliding scale coverage Metabolic acidosis, resolved -no DKA on admission Severe gastroparesis with intractable n/v -allergic to reglan, zofran, prochlorperazine, chlorpromazine -small frequent meals with either liquid or pureed diet -?trial of domperidone if available -monitor for dehydration, fransisco, and electrolyte abnormalities h/o GI bleed -normal hgb -no overt hematemesis documented by RN -no rectal bleed -protonix iv bid -carafate suspension 1g achs Hypophosphatemia -kphos disposition: 1-2 days, until pt tolerates diet from severe gastroparesis. VS, I&O, 24H, Fishbone Vital Signs/I&O Vital Signs Date Time Temp Pulse Resp B/P (MAP) Pulse Ox O2 Delivery O2 Flow Rate FiO2 06/17/21 07:27 97.8 99 20 158/95 (116) 99 Room Air I&O- Last 24 Hours up to 6 AM 06/17/21 06:00 Intake Total 0 ml Balance 0 ml Laboratory Data 24H LABS Laboratory Tests 2 06/16/21 08:46: Immature Granulocyte % (Auto) 0.6, Neutrophils (%) (Auto) 65.1, Lymphocytes (%) (Auto) 27.0, Monocytes (%) (Auto) 6.4, Eosinophils (%) (Auto) 0.2, Basophils (%) (Auto) 0.7, Neutrophils # (Auto) 6.9, Lymphocytes # (Auto) 2.9, Monocytes # (Auto) 0.7, Eosinophils # (Auto) 0.0, Basophils # (Auto) 0.1, Nucleated Red Blood Cells % (auto) 0.0, Anion Gap 6L, Glomerular Filtration Rate > 60.0, Calcium Level 8.0L 06/16/21 09:42: Bedside Glucose (Misc Panel) 182H 06/16/21 12:37: Bedside Glucose (Misc Panel) 98 06/16/21 12:45: Anion Gap 6L, Glomerular Filtration Rate > 60.0, Calcium Level 8.4L, Whole Blood Ionized Calcium 4.2L, Phosphorus Level 1.4L, Magnesium Level 1.8, Total Bilirubin 0.3, Aspartate Amino Transf (AST/SGOT) 14, Alanine Aminotransferase (ALT/SGPT) 20, Alkaline Phosphatase 86, C-Reactive Protein, Quantitative 0.30, Total Protein 6.5, Albumin 3.2, Albumin/Globulin Ratio 1.0L, Amylase Level 27, Lipase 21L 06/16/21 12:46: Erythrocyte Sedimentation Rate 15 06/16/21 14:46: Bedside Glucose (Misc Panel) 76 06/16/21 16:10: Bedside Glucose (Misc Panel) 61L 06/16/21 17:27: Bedside Glucose (Misc Panel) 166H 06/16/21 21:52: Bedside Glucose (Misc Panel) 186H 06/17/21 01:27: Bedside Glucose (Misc Panel) 217H 06/17/21 05:49: Bedside Glucose (Misc Panel) 194H 06/17/21 06:48: Immature Granulocyte % (Auto) 0.3, Neutrophils (%) (Auto) 69.1H, Lymphocytes (%) (Auto) 23.4L, Monocytes (%) (Auto) 6.4, Eosinophils (%) (Auto) 0.3, Basophils (%) (Auto) 0.5, Neutrophils # (Auto) 5.3, Lymphocytes # (Auto) 1.8, Monocytes # (Auto) 0.5, Eosinophils # (Auto) 0.0, Basophils # (Auto) 0.0, Nucleated Red Blood Cells % (auto) 0.0, Anion Gap 5L, Glomerular Filtration Rate > 60.0, Calcium Level 7.6L, Phosphorus Level 2.1#L 06/17/21 08:19: Bedside Glucose (Misc Panel) 182H CBC/BMP Laboratory Tests 06/16/21 08:46 06/16/21 12:45 06/17/21 06:48 Microbiology Microbiology 06/14/21 Blood Culture - Preliminary, Resulted No Growth after 48 hours. All Specime... 06/14/21 Blood Culture - Preliminary, Resulted No Growth after 48 hours. All Specime... ZAY SESAY MD Jun 17, 2021 08:50
[2021-06-17] MEDS: OLANZapine 5 MG TAB PO SCH ×2 (09:00→09:50)
[2021-06-17] MEDS: FLUoxetine 20 MG CAP PO SCH ×4 (09:00→21:00)
[2021-06-17] MEDS: SODIUM BICARBONATE 325 MG TAB PO SCH ×2 (09:00→09:50)
[2021-06-17] MEDS ORDERED: PANTOPRAZOLE 40MG VIAL (C9113 PER 1) IV SCH (09:00)
[2021-06-17] MEDS: SODIUM CHLORIDE 0.9% INJ 10 ML SYR IV SCH (09:51)
[2021-06-17] MEDS ORDERED: POTASSIUM PHOSPHATE INJ 30 MMOL in D5W 500 ML IV ONE (11:00)
[2021-06-17] MEDS: SUCRALFATE SUSP 1GM/10ML UD PO SCH ×3 (12:43→20:32)
[2021-06-17] MEDS: MORPHINE 30 MG TAB **MSIR PO PRN ×2 (12:44→19:31)
[2021-06-17] MEDS ORDERED: MORPHINE 4 MG/ML 1ML VIAL/SYRINGE (J2270) IV PRN (14:55)
[2021-06-17] MEDS ORDERED: MORPHINE 4 MG/ML 1ML VIAL/SYRINGE (J2270) IV ONE (14:55)
[2021-06-17 16:00] VITALS: BP 139/87
[2021-06-17] MEDS: LEVEMIR (INSULIN DETEMIR) 1 UNITS/0.01ML SC SCH (20:32)
[2021-06-17] MEDS ORDERED: PANTOPRAZOLE 40MG TAB (PROTONIX) PO SCH (21:00)
[2021-06-17 22:00] VITALS: BP 164/96
[2021-06-18] MEDS: MORPHINE 4 MG/ML 1ML VIAL/SYRINGE (J2270) IV PRN ×4 (00:27→23:18)
[2021-06-18] MEDS: SODIUM CHLORIDE 0.9% INJ 10 ML SYR IV PRN (00:28)
[2021-06-18] MEDS: HumaLOG INSULIN (NovoLOG) PER UNIT SC SCH ×7 (04:00→23:52)
[2021-06-18] MEDS: PROMETHAZINE INJ 25 MG/ML VIAL (J2550) IV SCH ×3 (04:10→14:47)
[2021-06-18] MEDS: SODIUM CHLORIDE 0.9% INJ 10 ML SYR IV SCH (04:11)
[2021-06-18 06:00] VITALS: BP 161/101
[2021-06-18] MEDS: METOPROLOL TART 25 MG TABLET PO SCH ×3 (06:00→17:25)
[2021-06-18] MEDS: SUCRALFATE SUSP 1GM/10ML UD PO SCH ×4 (06:43→20:06)
[2021-06-18] MEDS: FLUoxetine 20 MG CAP PO SCH ×2 (09:00→20:06)
[2021-06-18] MEDS: OLANZapine 5 MG TAB PO SCH (09:00)
--- NOTE | 2021-06-18 11:00 | IPNPDOC ---
Date Seen The patient was seen on 06/18/21. Progress Note S: Complains of 10 out of 10 epigastric abdominal pain without radiation no fever chills persistent nausea without vomiting patient has been refusing to eat for the past 48 hours she denies any shortness of breath complains of some chest pain when she takes deep breath she remains tachycardic and hypertensive PHYSICAL EXAM: Vital signs: See below General: Crying no respiratory distress HEENT no JVD thyromegaly cervical lymphadenopathy dry mucous membranes multiple tattoos noted on her skin Lungs are diminished, but clear to auscultation wheezing rales or rhonchi Heart S1-S2 sinus rhythm no murmurs rubs or gallops Abdomen soft slight epigastric tender nondistended positive bowel sounds no rebound or guarding no CVA tenderness Extremities no cyanosis clubbing or pitting edema LABS IMAGING STUDIES MICROBIOLOGY: SEE BELOW A/P:26-year-old female with history of type 1 diabetes anxiety gastroparesis presented to the emergency room with intractable nausea vomiting for 1 day. she denied any fever chills but complained of persistent abdominal pain. She was found to have a glucose of 393 with normal anion gap. CT abdomen pelvis pelvis was negative for acute intra-abdominal pathology chest x-ray was negative. Coronavirus was negative. Patient was started on every 4 hourly fingersticks, basic metabolic panel every 4 hours to rule out early acidosis. She was kept on her Levemir insulin and insulin sliding scale with coverage. Patient developed hypoglycemia with increasing dose of Levemir at 15 units subcu twice daily With glucose of 58 and episodes of tremors and diaphoresis she was then given D5 infusion which improved. Nausea vomiting and abdominal pain improved with antiemetics, and her diet was changed to pureed diet due to severe gastroparesis. Hyperglycemia,resolved -resumed on home dose of levemir insulin -consistent carbs diet with fbg qachs w [facility] sliding scale coverage Metabolic acidosis, resolved -no DKA on admission Abdominal pain -Most likely peptic ulcer disease gastritis or esophagitis -Repeat CT abdomen pelvis -Supportive care with IV Protonix twice daily Carafate as needed morphine and IV fluids -Surgical consult if persistent -Antiemetics with Phenergan Severe gastroparesis with intractable n/v -allergic to reglan, zofran, prochlorperazine, chlorpromazine -small frequent meals with either liquid or pureed diet -?trial of domperidone if available -monitor for dehydration, fransisco, and electrolyte abnormalities -Restarted back on IV fluids to prevent dehydration h/o GI bleed -normal hgb -no overt hematemesis documented by RN -no rectal bleed -protonix iv bid -carafate suspension 1g achs Hypophosphatemia -kphos disposition: 2-3DAYS , until pt tolerates diet VS, I&O, 24H, Fishbone Vital Signs/I&O Vital Signs Date Time Temp Pulse Resp B/P (MAP) Pulse Ox O2 Delivery O2 Flow Rate FiO2 06/18/21 09:21 22 06/18/21 06:00 98.1 115 161/101 (121) 96 Room Air I&O- Last 24 Hours up to 6 AM 06/18/21 06:00 Intake Total 60 ml Output Total 0 ml Balance 60 ml Laboratory Data 24H LABS Laboratory Tests 2 06/17/21 12:13: Bedside Glucose (Misc Panel) 138H 06/17/21 16:47: Bedside Glucose (Misc Panel) 219H 06/17/21 20:13: Bedside Glucose (Misc Panel) 290H 06/18/21 00:03: Bedside Glucose (Misc Panel) 264H 06/18/21 04:03: Bedside Glucose (Misc Panel) 151H 06/18/21 08:29: Bedside Glucose (Misc Panel) 130H Microbiology Microbiology 06/14/21 Blood Culture - Preliminary, Resulted No Growth after 72 hours. All specime... 06/14/21 Blood Culture - Preliminary, Resulted No Growth after 72 hours. All specime... ZAY SESAY MD Jun 18, 2021 11:00
[2021-06-18] MEDS: MORPHINE 4 MG/ML 1ML VIAL/SYRINGE (J2270) IV ONE ×2 (11:19→12:26)
[2021-06-18 11:55] LABS: BASO % 0.5 % (0.0-1.0); EOS % 0.5 % (0.0-3.0); HEMATOCRIT 37.5 % (36.0-47.0); HEMOGLOBIN 12.2 g/dl (12.0-15.5); LYMPH # 2.5 10^3/uL (1.5-5.0); LYMPH % 31.5 % (24.0-44.0); MEAN CORPUSCULAR HEMOGLOBIN 27.9 pg (27.0-33.0); MEAN CORPUSCULAR HGB CONC 32.5 g/dl (32.0-36.5); MEAN CORPUSCULAR VOLUME 85.8 fl (80.0-96.0); MONO # 0.5 10^3/uL (0.0-0.8); MONO % 6.2 % (2.0-8.0); NEUTROPHILS # 4.8 10^3/uL (1.5-8.5); PLATELET COUNT, AUTOMATED 206 10^3/uL (150-450); RED BLOOD COUNT 4.37 10^6/uL (4.00-5.40); WHITE BLOOD COUNT 7.9 10^3/uL (4.0-10.0)
[2021-06-18 12:13] LABS: ERYTHROCYTE SEDIMENTATION RATE 15 mm/hr (0-20)
[2021-06-18 12:20] LABS: ALT/SGPT 20 U/L (12-78); AMYLASE 58 U/L (25-115); BILIRUBIN,TOTAL 0.3 MG/DL (0.2-1.0); BLOOD UREA NITROGEN 5 MG/DL (7-18); CALCIUM LEVEL 8.2 MG/DL (8.5-10.1); CARBON DIOXIDE LEVEL 30 MEQ/L (21-32); CHLORIDE LEVEL 105 MEQ/L (98-107); CREATININE FOR GFR 0.52 MG/DL (0.55-1.30); GLOMERULAR FILTRATION RATE > 60.0 (>60); GLUCOSE, FASTING 133 MG/DL (70-100); LIPASE 30 U/L (73-393); MAGNESIUM LEVEL 2.2 MG/DL (1.8-2.4); POTASSIUM SERUM 3.9 MEQ/L (3.5-5.1); SODIUM LEVEL 141 MEQ/L (136-145); TOTAL PROTEIN 6.1 GM/DL (6.4-8.2)
[2021-06-18] MEDS: NS 1,000 ML IV SCH ×2 (12:25→20:06)
[2021-06-18] MEDS: PANTOPRAZOLE 40MG VIAL (C9113 PER 1) IV SCH ×2 (12:25→20:05)
[2021-06-18 14:00] VITALS: BP 144/88
[2021-06-18] MEDS ORDERED: ISOVUE-370 76% 100ML VIAL As Ordered ONE (14:08)
--- NOTE | 2021-06-18 14:42 | REP ---
INDICATION: INTRACTABLEN/V/ABD PAIN. COMPARISON: 06/15/2021 TECHNIQUE: Axial contrast-enhanced images from the lung bases to the pubic symphysis using 100 cc Isovue 370 intravenous contrast material. Coronal and sagittal reformations obtained. This CT examination was performed using the following dose reduction techniques: Automated exposure control, adjustment of mA and/or kv according to the patient's size, and the use of iterative reconstruction technique. FINDINGS: Liver, spleen, pancreas, bilateral adrenal glands and kidneys are normal. The enteric system demonstrates mild mucosal thickening involving elements of small and large bowel raising the possibility of enterocolitis and correlation is required. There is no bowel obstruction or free air to suggest perforation and no drainable collection/abscess. Pelvis demonstrates markedly distended urinary bladder which extends to the level of the umbilicus. Uterus/adnexa appear normal. No ascites. No free air. No intraperitoneal or retroperitoneal adenopathy. Abdominal aorta and vasculature appear normal. Musculoskeletal structures are intact and without acute osseous abnormality. IMPRESSION: 1. Cannot exclude a mild enterocolitis. 2. Significant distension to the urinary bladder of uncertain significance or etiology. <Electronically signed by Behzad Nelson > 06/18/21 [id number]
--- NOTE | 2021-06-18 14:45 | REP ---
INDICATION: INTRACTABLE CHEST PAIN/ABDOMINAL PAIN COMPARISON: None. TECHNIQUE: Axial contrast enhanced images from the thoracic inlet to the upper abdomen using pulmonary embolus technique with multiplanar re-formations. 100 ml Isovue 370 intravenous contrast material administered without complication. Examination followed by CT of the abdomen and pelvis. This CT examination was performed using the following dose reduction techniques: Automated exposure control, adjustment of mA and/or kv according to the patient's size, and use of iterative reconstruction technique. FINDINGS: Satisfactory enhancement of the pulmonary vasculature is achieved and no filling defects are identified to suggest pulmonary embolus. Further evaluation of the mediastinum demonstrates normal thoracic aorta, heart and pericardium. The bilateral lung thomas are well aerated and without consolidation, pleural effusion or pneumothorax. Tracheobronchial tree is patent. 10 mm left upper lobe perihilar nodule (series 402; image 35) and 9 mm anterior left upper lobe nodule (series 402; image 29) are identified. No obvious adenopathy. Surrounding musculoskeletal structures are intact and without acute osseous abnormality. [id number] identified in the left anterior chest wall with tip in the SVC/right atrium. IMPRESSION: No evidence for pulmonary embolus. No acute mediastinal or pleural parenchymal process. Left upper lobe pulmonary nodules as noted above. Warrant correlation no prior examinations are available for comparison and further investigation including short-term 3 month follow-up may be warranted. <Electronically signed by Behzad Nelson > 06/18/21 [id number]
[2021-06-18] MEDS: metroNIDAZOLE 500 MG in IV 1 EA IV SCH (17:25)
[2021-06-18] MEDS: PROMETHAZINE INJ 25 MG/ML VIAL (J2550) IV PRN ×2 (18:41→23:17)
[2021-06-18] MEDS: CIPROFLOXACIN 400 MG in IV 1 EA IV SCH (18:41)
[2021-06-18] MEDS: LEVEMIR (INSULIN DETEMIR) 1 UNITS/0.01ML SC SCH (20:05)
[2021-06-18 22:00] VITALS: BP 134/81
[2021-06-19] MEDS: metroNIDAZOLE 500 MG in IV 1 EA IV SCH ×3 (00:53→17:26)
[2021-06-19 01:37] LABS: GC DNA AMPLIFICATION NEGATIVE (NEGATIVE)
[2021-06-19] MEDS: NS 1,000 ML IV SCH (01:59)
[2021-06-19] MEDS: HumaLOG INSULIN (NovoLOG) PER UNIT SC SCH ×5 (03:53→20:30)
[2021-06-19] MEDS: CIPROFLOXACIN 400 MG in IV 1 EA IV SCH ×2 (05:38→18:23)
[2021-06-19] MEDS: MORPHINE 4 MG/ML 1ML VIAL/SYRINGE (J2270) IV PRN ×3 (05:39→17:27)
[2021-06-19 06:00] VITALS: BP 132/85
[2021-06-19] MEDS: METOPROLOL TART 25 MG TABLET PO SCH ×4 (06:00→17:44)
[2021-06-19 07:02] LABS: BASO # 0.1 10^3/uL (0.0-0.2); BASO % 0.6 % (0.0-1.0); EOS # 0.1 10^3/uL (0.0-0.5); EOS % 1.3 % (0.0-3.0); HEMOGLOBIN 11.7 g/dl (12.0-15.5); LYMPH # 1.7 10^3/uL (1.5-5.0); LYMPH % 18.3 % (24.0-44.0); MEAN CORPUSCULAR HEMOGLOBIN 27.2 pg (27.0-33.0); MEAN CORPUSCULAR HGB CONC 31.6 g/dl (32.0-36.5); MONO # 0.9 10^3/uL (0.0-0.8); MONO % 9.6 % (2.0-8.0); NEUTROPHILS # 6.4 10^3/uL (1.5-8.5); NEUTROPHILS % 69.9 % (36.0-66.0); PLATELET COUNT, AUTOMATED 203 10^3/uL (150-450); WHITE BLOOD COUNT 9.1 10^3/uL (4.0-10.0)
[2021-06-19] MEDS: SUCRALFATE SUSP 1GM/10ML UD PO SCH ×4 (07:30→20:36)
[2021-06-19 07:31] LABS: ALBUMIN 2.5 GM/DL (3.2-5.2); ALT/SGPT 17 U/L (12-78); BILIRUBIN,TOTAL 0.2 MG/DL (0.2-1.0); BLOOD UREA NITROGEN 5 MG/DL (7-18); CALCIUM LEVEL 7.2 MG/DL (8.5-10.1); CARBON DIOXIDE LEVEL 28 MEQ/L (21-32); CHLORIDE LEVEL 106 MEQ/L (98-107); CREATININE FOR GFR 0.54 MG/DL (0.55-1.30); GLOMERULAR FILTRATION RATE > 60.0 (>60); GLUCOSE, FASTING 145 MG/DL (70-100); POTASSIUM SERUM 3.1 MEQ/L (3.5-5.1); SODIUM LEVEL 140 MEQ/L (136-145); TOTAL PROTEIN 5.6 GM/DL (6.4-8.2)
[2021-06-19] MEDS: FLUoxetine 20 MG CAP PO SCH ×2 (07:53→20:37)
[2021-06-19] MEDS: OLANZapine 5 MG TAB PO SCH (07:53)
[2021-06-19] MEDS: PROMETHAZINE INJ 25 MG/ML VIAL (J2550) IV PRN ×3 (07:59→20:29)
[2021-06-19] MEDS: SODIUM CHLORIDE 0.9% INJ 10 ML SYR IV SCH (09:00)
[2021-06-19] MEDS ORDERED: diphenhydrAMINE 50MG/ML VIAL (J1200) IV ONE ×2 (09:15→09:50)
[2021-06-19] MEDS: PANTOPRAZOLE 40MG VIAL (C9113 PER 1) IV SCH ×2 (09:52→20:29)
[2021-06-19] MEDS: D5W/0.45% SODIUM CHLORIDE 1,000 ML IV SCH ×3 (09:53→22:20)
[2021-06-19] MEDS ORDERED: PROCHLORPERAZINE 10MG/2ML VIAL (J0780 PER 1) IV ONE (10:00)
[2021-06-19 14:00] VITALS: BP 141/99
--- NOTE | 2021-06-19 18:01 | IPN ---
PROGRESS NOTE DATE: 06/19/2021 SUBJECTIVE: The patient continues to complain of intractable nausea and vomiting. She has been hyperglycemic overnight with glucose of 58, since she has not been eating well. She is still not tolerating any solid diet; currently on clear liquid with persistent vomiting and abdominal pain across the abdomen, rating about 5/10 on a pain scale. She has had no fever or chills. CT abdomen and pelvis shows possible early Enterocolitis. She was started on Cipro and Flagyl yesterday and kept on I.V. fluids overnight. The patient is requesting for Compazine to be given with Benadryl despite having a documented reaction to Compazine with rash and pruritus. Patient is requesting Compazine since the Phenergan is not working with persistent nausea. PHYSICAL EXAMINATION: VITAL SIGNS: Temperature 98, pulse 99, respiratory rate 18, blood pressure 132/85, 99% on room air. GENERAL: Patient is awake, alert and oriented x3. She is very anxious and crying at the bedside, rubbing her abdomen. No respiratory distress. HEENT: No JVD or thyromegaly. LUNGS: Clear to auscultation. No wheezing or rales. HEART: S1, S2, sinus rhythm. Episodes of sinus tachycardia. ABDOMEN: Soft, slightly tender in the epigastric and periumbilical area without radiation. No rebound or guarding. Nondistended. EXTREMITIES: No cyanosis, clubbing or pitting edema. LABORATORY DATA/MICROBIOLOGY/IMAGING STUDIES: Notable for potassium of 3.[address] showing early Enterocolitis. ASSESSMENT: This is a 26-year-old female admitted on 06/15/2021 with hyperglycemia with history of type 1 diabetes, severe gastroparesis with intractable nausea and vomiting. The patient had been treated with insulin, which improved her hyperglycemia back to baseline, but developed hyperglycemia due to intractable nausea and vomiting from severe gastroparesis. Initial CT abdomen and pelvis was negative. Patient was kept on I.V. fluids and antiemetics with potassium supplementation if needed. She developed severe abdominal pain and was sent for CT abdomen and pelvis on 06/18/2021, which shows possible early Enterocolitis, at which point she was given intravenous Cipro and Flagyl. Patient was also found to have urinary retention with a liter of urine with post void residual and with casts with 2.5 liters removed overnight yesterday; 880 was found on the bladder scan. She had four episodes of emesis yesterday. Patient was found to have some vaginal whitish discharge, but Chlamydia, gonorrhea and trichomonas were all negative. Patient was started on Cipro and Flagyl for Enterocolitis. IMPRESSION: 1. Hyperglycemia: Resolved; she has had episodes of hypoglycemia due to decreased oral intake from intractable nausea and vomiting from severe gastroparesis. 2. Enterocolitis: On I.V. Cipro and Flagyl for seven days and I.V. fluids. 3. Severe gastroparesis with intractable nausea and vomiting with allergy to Reglan: Currently on Phenergan every 4 hours as needed as well as a small frequent meals with liquid or pureed diet. 4. Hypophosphatemia: Repleted. 5. Hypokalemia: Repleted. 6. History of GI bleed with normal hemoglobin. MTDD
[2021-06-19] MEDS: LEVEMIR (INSULIN DETEMIR) 1 UNITS/0.01ML SC SCH (20:30)
[2021-06-19 22:00] VITALS: BP 126/78
[2021-06-20] MEDS: MORPHINE 4 MG/ML 1ML VIAL/SYRINGE (J2270) IV PRN ×3 (01:15→20:52)
[2021-06-20] MEDS: metroNIDAZOLE 500 MG in IV 1 EA IV SCH ×3 (01:24→16:39)
[2021-06-20] MEDS: NS 1,000 ML IV SCH ×3 (01:24→23:24)
[2021-06-20] MEDS: HumaLOG INSULIN (NovoLOG) PER UNIT SC SCH ×7 (04:33→23:58)
[2021-06-20] MEDS: CIPROFLOXACIN 400 MG in IV 1 EA IV SCH ×2 (05:06→17:59)
[2021-06-20] MEDS: METOPROLOL TART 25 MG TABLET PO SCH ×2 (05:22)
[2021-06-20 06:00] VITALS: BP 168/84
[2021-06-20] MEDS: PROMETHAZINE INJ 25 MG/ML VIAL (J2550) IV PRN ×3 (06:13→20:53)
[2021-06-20] MEDS: SUCRALFATE SUSP 1GM/10ML UD PO SCH ×4 (07:42→20:50)
[2021-06-20] MEDS: PANTOPRAZOLE 40MG VIAL (C9113 PER 1) IV SCH ×2 (07:43→20:51)
[2021-06-20] MEDS ORDERED: PROMETHAZINE INJ 25 MG/ML VIAL (J2550) IV ONE (08:45)
--- NOTE | 2021-06-20 08:50 | IPNPDOC ---
Date Seen The patient was seen on 06/20/21. Progress Note SUBJECTIVE: refuses po meds. per rn, able to keep 1liter po liquids down c/o persistent abd pain 9/10 scale diffusely one episode of loose bm intractable nausea despite b7xhesir phenergan. no rash w compazine. PHYSICAL EXAMINATION: VITAL SIGNS: see be;pw GENERAL: laying on her left side in position. no distress HEENT: No JVD or thyromegaly. LUNGS: Clear to auscultation. No wheezing or rales. HEART: S1, S2, sinus rhythm. Episodes of sinus tachycardia. ABDOMEN: Soft, slightly tender in the epigastric and periumbilical area without radiation. No rebound or guarding. Nondistended. EXTREMITIES: No cyanosis, clubbing or pitting edema. LABORATORY DATA/MICROBIOLOGY/IMAGING STUDIES: Notable for potassium of 3.[address] showing early Enterocolitis. ASSESSMENT: This is a 26-year-old female admitted on 06/15/2021 with hyperglycemia with history of type 1 diabetes, severe gastroparesis with intractable nausea and vomiting. The patient had been treated with insulin, which improved her hyperglycemia back to baseline, but developed hyperglycemia due to intractable nausea and vomiting from severe gastroparesis. Initial CT abdomen and pelvis was negative. Patient was kept on I.V. fluids and antiemetics with potassium supplementation if needed. She developed severe abdominal pain and was sent for CT abdomen and pelvis on 06/18/2021, which shows possible early Enterocolitis, at which point she was given intravenous Cipro and Flagyl. Patient was also found to have urinary retention with a liter of urine with post void residual and with casts with 2.5 liters removed overnight yesterday; 880 was found on the bladder scan. She had four episodes of emesis yesterday. Patient was found to have some vaginal whitish discharge, but Chlamydia, gonorrhea and trichomonas were all negative. Patient was started on Cipro and Flagyl for Enterocolitis. IMPRESSION: 1. Hyperglycemia: Resolved; she has had episodes of hypoglycemia due to decreased oral intake from intractable nausea and vomiting from severe gastroparesis. due to decreased po intake, placed on d5 but developed fbg 300. now on ns.prn iv morphine 2. Enterocolitis: On I.V. Cipro and Flagyl for seven days and I.V. fluids. tolerated po liquids, on ppi and carafate. 3. Severe gastroparesis with intractable nausea and vomiting with allergy to Reglan: Currently on Phenergan every 4 hours as needed as well as a small frequent meals with liquid or pureed diet. 4. Hypophosphatemia: Repleted. 5. Hypokalemia: Repleted. 6. History of GI bleed with normal hemoglobin. VS, I&O, 24H, Fishbone Vital Signs/I&O Vital Signs Date Time Temp Pulse Resp B/P (MAP) Pulse Ox O2 Delivery O2 Flow Rate FiO2 06/20/21 07:43 20 06/20/21 06:00 98.0 104 168/84 (112) 98 Room Air I&O- Last 24 Hours up to 6 AM 06/20/21 06:00 Intake Total 7245 ml Output Total 5425 ml Balance 1820 ml Laboratory Data 24H LABS Laboratory Tests 2 06/19/21 09:09: Bedside Glucose (Misc Panel) 179H 06/19/21 12:27: Bedside Glucose (Misc Panel) 173H 06/19/21 16:15: Bedside Glucose (Misc Panel) 181H 06/19/21 20:01: Bedside Glucose (Misc Panel) 133H 06/20/21 00:27: Bedside Glucose (Misc Panel) 261H 06/20/21 04:28: Bedside Glucose (Misc Panel) 300H 06/20/21 05:15: Bedside Glucose (Misc Panel) 286H Microbiology Microbiology 06/14/21 Blood Culture - Final, Complete NO GROWTH AFTER 5 DAYS 06/14/21 Blood Culture - Final, Complete NO GROWTH AFTER 5 DAYS ZAY SESAY MD Jun 20, 2021 08:48
[2021-06-20] MEDS ORDERED: cloNIDine HCL 0.3 MG/24 HR PATCH TOP SCH (09:00)
[2021-06-20] MEDS: SODIUM CHLORIDE 0.9% INJ 10 ML SYR IV SCH (09:00)
[2021-06-20] MEDS ORDERED: MORPHINE 10 MG/ML 1ML VIAL (J2270) IV ONE (09:00)
[2021-06-20] MEDS: FLUoxetine 20 MG CAP PO SCH ×2 (09:00→20:55)
[2021-06-20] MEDS ORDERED: POTASSIUM CHLORIDE 10 MEQ SR TABLET PO ONE (09:00)
[2021-06-20] MEDS: OLANZapine 5 MG TAB PO SCH (09:00)
[2021-06-20] MEDS ORDERED: diphenhydrAMINE 50MG/ML VIAL (J1200) IV ONE (09:15)
[2021-06-20] MEDS ORDERED: PROCHLORPERAZINE 10MG/2ML VIAL (J0780 PER 1) IV ONE (09:30)
[2021-06-20] MEDS: SCOPOLAMINE 1MG TRANSDERMAL PATCH TOP SCH (10:03)
[2021-06-20 11:08] LABS: BASO % 0.5 % (0.0-1.0); EOS # 0.1 10^3/uL (0.0-0.5); EOS % 1.1 % (0.0-3.0); HEMATOCRIT 36.6 % (36.0-47.0); HEMOGLOBIN 11.9 g/dl (12.0-15.5); LYMPH # 1.9 10^3/uL (1.5-5.0); LYMPH % 23.1 % (24.0-44.0); MEAN CORPUSCULAR HEMOGLOBIN 27.6 pg (27.0-33.0); MEAN CORPUSCULAR HGB CONC 32.5 g/dl (32.0-36.5); MEAN CORPUSCULAR VOLUME 84.9 fl (80.0-96.0); MONO # 0.7 10^3/uL (0.0-0.8); MONO % 8.6 % (2.0-8.0); NEUTROPHILS # 5.5 10^3/uL (1.5-8.5); NEUTROPHILS % 66.3 % (36.0-66.0); PLATELET COUNT, AUTOMATED 215 10^3/uL (150-450); RED BLOOD COUNT 4.31 10^6/uL (4.00-5.40); WHITE BLOOD COUNT 8.3 10^3/uL (4.0-10.0)
[2021-06-20 11:59] LABS: ALBUMIN 2.8 GM/DL (3.2-5.2); ALT/SGPT 18 U/L (12-78); BILIRUBIN,TOTAL 0.3 MG/DL (0.2-1.0); BLOOD UREA NITROGEN 1 MG/DL (7-18); CALCIUM LEVEL 7.7 MG/DL (8.5-10.1); CARBON DIOXIDE LEVEL 31 MEQ/L (21-32); CHLORIDE LEVEL 107 MEQ/L (98-107); CREATININE FOR GFR 0.61 MG/DL (0.55-1.30); GLOMERULAR FILTRATION RATE > 60.0 (>60); GLUCOSE, FASTING 122 MG/DL (70-100); MAGNESIUM LEVEL 1.8 MG/DL (1.8-2.4); SODIUM LEVEL 143 MEQ/L (136-145)
[2021-06-20 14:00] VITALS: BP 154/98
[2021-06-20] MEDS: MORPHINE 30 MG TAB **MSIR PO PRN (14:35)
[2021-06-20] MEDS: LEVEMIR (INSULIN DETEMIR) 1 UNITS/0.01ML SC SCH (20:51)
[2021-06-20 22:00] VITALS: BP 133/99
[2021-06-21] MEDS: metroNIDAZOLE 500 MG in IV 1 EA IV SCH ×3 (01:30→17:25)
[2021-06-21] MEDS: PROMETHAZINE INJ 25 MG/ML VIAL (J2550) IV PRN ×2 (02:26→11:51)
[2021-06-21] MEDS: MORPHINE 30 MG TAB **MSIR PO PRN ×2 (02:26→14:35)
[2021-06-21] MEDS: HumaLOG INSULIN (NovoLOG) PER UNIT SC SCH ×5 (04:00→21:05)
[2021-06-21 06:00] VITALS: BP 105/70
[2021-06-21 06:13] LABS: BASO % 0.4 % (0.0-1.0); EOS # 0.2 10^3/uL (0.0-0.5); EOS % 2.3 % (0.0-3.0); HEMOGLOBIN 10.9 g/dl (12.0-15.5); LYMPH # 2.6 10^3/uL (1.5-5.0); LYMPH % 34.4 % (24.0-44.0); MEAN CORPUSCULAR HEMOGLOBIN 27.3 pg (27.0-33.0); MEAN CORPUSCULAR HGB CONC 32.1 g/dl (32.0-36.5); MEAN CORPUSCULAR VOLUME 85.2 fl (80.0-96.0); MONO # 0.6 10^3/uL (0.0-0.8); MONO % 7.4 % (2.0-8.0); NEUTROPHILS # 4.2 10^3/uL (1.5-8.5); NEUTROPHILS % 55.2 % (36.0-66.0); PLATELET COUNT, AUTOMATED 202 10^3/uL (150-450); RED BLOOD COUNT 3.99 10^6/uL (4.00-5.40); WHITE BLOOD COUNT 7.6 10^3/uL (4.0-10.0)
[2021-06-21] MEDS: CIPROFLOXACIN 400 MG in IV 1 EA IV SCH ×2 (06:19→18:40)
[2021-06-21 06:48] LABS: ALBUMIN 2.3 GM/DL (3.2-5.2); ALT/SGPT 14 U/L (12-78); BILIRUBIN,TOTAL 0.2 MG/DL (0.2-1.0); BLOOD UREA NITROGEN 1 MG/DL (7-18); CALCIUM LEVEL 7.2 MG/DL (8.5-10.1); CARBON DIOXIDE LEVEL 28 MEQ/L (21-32); CHLORIDE LEVEL 108 MEQ/L (98-107); CREATININE FOR GFR 0.58 MG/DL (0.55-1.30); GLOMERULAR FILTRATION RATE > 60.0 (>60); GLUCOSE, FASTING 106 MG/DL (70-100); MAGNESIUM LEVEL 1.8 MG/DL (1.8-2.4); POTASSIUM SERUM 2.9 MEQ/L (3.5-5.1); SODIUM LEVEL 141 MEQ/L (136-145); TOTAL PROTEIN 5.6 GM/DL (6.4-8.2)
[2021-06-21] MEDS: SUCRALFATE SUSP 1GM/10ML UD PO SCH ×4 (07:30→22:04)
[2021-06-21] MEDS: SODIUM CHLORIDE 0.9% INJ 10 ML SYR IV SCH (09:00)
--- NOTE | 2021-06-21 09:39 | IPN ---
PROGRESS NOTE DATE: 06/21/2021 SUBJECTIVE: Patient has been reluctant to resume oral intake complaining of diffuse abdominal pain, persistent nausea per nursing. Patient is able to tolerate her liquids without any difficulty. She has a Winters catheter in place due to recent urine retention. Denies any fever or chills overnight. Blood pressure was elevated as well as tachycardic. She was given a clonidine patch due to refusal to take metoprolol. Patient has intractable nausea despite Phenergan with allergies to Reglan, prochlorperazine and chlorpromazine. Abdominal pain is diffuse across the abdomen rated at 5 out of 10, achy at all times without radiation. Afebrile overnight. OBJECTIVE: Vital Signs: Temperature 97.5, pulse 94, respiratory 17, blood pressure 105/70, 97% on room air. GENERAL: The patient is awake, alert, oriented to person, place and time. Laying on her left side in position. Winters catheter in place with yellow-colored urine. No distress. Patient is tearful. HEENT: No jugular venous distention (JVD) or thyromegaly. LUNGS: No respiratory distress. Lungs are diminished but clear to auscultation. No adventitious breath sounds. No kyphosis or scoliosis. No conversational dyspnea. HEART: S1, S2; sinus rhythm. ABDOMEN: Soft; tender in the epigastric and umbilical area. No rebound or guarding. No distention. Winters catheter in place. EXTREMITIES: No cyanosis, clubbing or pitting edema. Laboratory data, microbiology and imaging studies have been reviewed. ASSESSMENT AND PLAN: This is a 26-year-old type 1 diabetic admitted on 06/15/2021 for hyperglycemia and severe gastroparesis with intractable nausea and vomiting. Her hyperglycemia responded well to insulin but she refused to eat due to intractable nausea and vomiting. She then developed worsening abdominal pain. Initial CT was negative. Repeat CT showed enterocolitis. She had hypertension and tachycardia; evaluated with CT chest; rule out for pulmonary embolus (PE) which was negative. She had pulmonary nodules that need outpatient followup. During her admission, she refused to eat with increasing suprapubic tenderness; found to be retaining urine. Winters catheter was placed with over one liter out. She was found to have vaginal discharge; sent for gonorrhea (GC), chlamydia, all of which were negative as well as trichomonas. Current issues are as follows: 1. Severe gastroparesis with intractable nausea and vomiting with allergies to Reglan, prochlorperazine and chlorpromazine; currently on IV Phenergan and scopolamine patch. Patient says it has not improved but RN has noticed that she is increasingly tolerating liquid diet at least and able to take a little bit of the pureed diet. At this time, patient is kept on scopolamine patch, IV Phenergan. She was asked to eat smaller meals, fluid or pureed diet. She is allergic to Reglan. She may need an bass fisher to see if domperidone may benefit her. Enterocolitis, currently on IV ciprofloxacin and Flagyl; unable to transition to p.o. secondary to severe pain, nausea and vomiting. 2. Hyperglycemia, resolved. Patient responded to insulin but had episodes of hypoglycemia due to decreased oral intake from severe gastroparesis and intractable nausea and vomiting. 3.Hypophosphatemia, resolved, repleted. 4. Hypokalemia, repleted with krun bid kdur 5.History of gastrointestinal (GI) bleed with normal hemoglobin. Patient is currently on Protonix twice a day and Carafate. 6.Hypertension; unable to take oral intake for now and refused metoprolol.catapress patch 7. palpitations, there was concern about pulmonary embolus (PE) but that was negative for pulmonary embolism. F DISPOSITION: Patient may need a psychiatric consultation due to severely depressed mood from chronic illness. At this time, patient is slowly taking oral intake. MTDD
[2021-06-21] MEDS: MORPHINE 4 MG/ML 1ML VIAL/SYRINGE (J2270) IV PRN ×2 (10:05→22:05)
[2021-06-21] MEDS: PANTOPRAZOLE 40MG VIAL (C9113 PER 1) IV SCH ×3 (10:05→22:05)
[2021-06-21] MEDS: NS 1,000 ML IV SCH (10:06)
[2021-06-21] MEDS ORDERED: POTASSIUM CHLORIDE 10 MEQ SR TABLET PO ONE (10:40)
[2021-06-21] MEDS ORDERED: MAG SULF 1GM/100ML (MAG RUN) 1 GM in IV 1 EA IV ONE (11:00)
[2021-06-21] MEDS: FLUoxetine 20 MG CAP PO SCH ×2 (11:52→22:04)
[2021-06-21] MEDS: OLANZapine 5 MG TAB PO SCH (11:52)
[2021-06-21] MEDS: KCL 40MEQ in NS 1000ML 1,000 ML IV SCH (13:09)
[2021-06-21] MEDS: KCL 10MEQ/100ML SWI (KRUN) 10 MEQ in IV 1 EA IV SCH ×2 (13:09→14:30)
[2021-06-21 14:00] VITALS: BP 147/97
[2021-06-21 14:08] LABS: CHLAMYDIA PHARYNGEAL APTIMA Positive (Negative); CHLAMYDIA RECTAL APTIMA Negative (Negative); GC PHARYNGEAL APTIMA Negative (Negative); GC RECTAL APTIMA Negative (Negative)
[2021-06-21] MEDS: LEVEMIR (INSULIN DETEMIR) 1 UNITS/0.01ML SC SCH (21:00)
[2021-06-21 22:00] VITALS: BP 133/92
[2021-06-21] MEDS: POTASSIUM CHLORIDE 10 MEQ SR TABLET PO SCH (22:04)
[2021-06-22] MEDS: PROMETHAZINE INJ 25 MG/ML VIAL (J2550) IV PRN (00:20)
[2021-06-22] MEDS: SODIUM CHLORIDE 0.9% INJ 10 ML SYR IV PRN ×2 (01:02→04:27)
[2021-06-22] MEDS: metroNIDAZOLE 500 MG in IV 1 EA IV SCH ×3 (01:02→16:39)
[2021-06-22 03:56] VITALS: BP 168/104
[2021-06-22] MEDS: HumaLOG INSULIN (NovoLOG) PER UNIT SC SCH ×6 (04:00→20:00)
[2021-06-22] MEDS ORDERED: dexameTHASONE 4 MG/ML 1ML VIAL (J1100 PER 1MG) IV ONE (04:10)
[2021-06-22] MEDS ORDERED: diphenhydrAMINE 50MG/ML VIAL (J1200) IV ONE (04:10)
[2021-06-22] MEDS ORDERED: HumaLOG INSULIN (NovoLOG) PER UNIT SC ONE (04:40)
[2021-06-22] MEDS: KCL 40MEQ in NS 1000ML 1,000 ML IV SCH (04:58)
[2021-06-22] MEDS: CIPROFLOXACIN 400 MG in IV 1 EA IV SCH ×2 (04:59→18:00)
[2021-06-22] MEDS: MORPHINE 4 MG/ML 1ML VIAL/SYRINGE (J2270) IV PRN ×3 (05:00→21:12)
[2021-06-22 06:00] VITALS: BP 156/90; O2SAT 97
[2021-06-22 07:29] LABS: BASO % 0.2 % (0.0-1.0); EOS # 0.1 10^3/uL (0.0-0.5); EOS % 0.5 % (0.0-3.0); HEMATOCRIT 39.5 % (36.0-47.0); HEMOGLOBIN 12.6 g/dl (12.0-15.5); LYMPH # 0.6 10^3/uL (1.5-5.0); LYMPH % 5.9 % (24.0-44.0); MEAN CORPUSCULAR HEMOGLOBIN 27.5 pg (27.0-33.0); MEAN CORPUSCULAR HGB CONC 31.9 g/dl (32.0-36.5); MEAN CORPUSCULAR VOLUME 86.1 fl (80.0-96.0); MONO # 0.2 10^3/uL (0.0-0.8); MONO % 1.8 % (2.0-8.0); NEUTROPHILS # 9.9 10^3/uL (1.5-8.5); NEUTROPHILS % 91.1 % (36.0-66.0); PLATELET COUNT, AUTOMATED 223 10^3/uL (150-450); RED BLOOD COUNT 4.59 10^6/uL (4.00-5.40); WHITE BLOOD COUNT 10.8 10^3/uL (4.0-10.0)
[2021-06-22 07:59] LABS: ALBUMIN 2.8 GM/DL (3.2-5.2); ALT/SGPT 20 U/L (12-78); BILIRUBIN,TOTAL 0.3 MG/DL (0.2-1.0); BLOOD UREA NITROGEN 2 MG/DL (7-18); CARBON DIOXIDE LEVEL 26 MEQ/L (21-32); CHLORIDE LEVEL 109 MEQ/L (98-107); CREATININE FOR GFR 0.91 MG/DL (0.55-1.30); GLOMERULAR FILTRATION RATE > 60.0 (>60); GLUCOSE, FASTING 262 MG/DL (70-100); POTASSIUM SERUM 4.8 MEQ/L (3.5-5.1); SODIUM LEVEL 140 MEQ/L (136-145); TOTAL PROTEIN 6.2 GM/DL (6.4-8.2)
[2021-06-22] MEDS: SUCRALFATE SUSP 1GM/10ML UD PO SCH ×4 (08:34→21:10)
[2021-06-22] MEDS: FLUoxetine 20 MG CAP PO SCH ×2 (08:35→21:10)
[2021-06-22] MEDS: POTASSIUM CHLORIDE 10 MEQ SR TABLET PO SCH ×3 (08:35→21:00)
[2021-06-22] MEDS: OLANZapine 5 MG TAB PO SCH (08:35)
[2021-06-22] MEDS: PANTOPRAZOLE 40MG VIAL (C9113 PER 1) IV SCH ×2 (08:35→21:11)
[2021-06-22] MEDS: SODIUM CHLORIDE 0.9% INJ 10 ML SYR IV SCH (08:46)
--- NOTE | 2021-06-22 11:05 | IPN ---
PROGRESS NOTE DATE: 06/22/2021 SUBJECTIVE: Moon was seen [facility]. She is a Type 1 diabetic. She is admitted with severe gastroparesis, intractable nausea and vomiting, found to have enterocolitis on CT scan, is responding well to IV Cipro and Flagyl, starting to take p.o. liquids. She says she feels better than yesterday. Her blood sugars have improved, has intermittent hypoglycemia due to decreased oral intake and severe gastroparesis. Has a history of previous GI bleed for which he is on b.i.d. Protonix as well as Carafate, hypertensive heart disease, and a history of adjustment disorder secondary to severe medical illness. We received a call from [facility] that she was seen last week for a suspected STI and that she does have chlamydia, she is made aware of this today and also made aware of the need to notify any potentially affected partners. OBJECTIVE: VITAL SIGNS: Afebrile. Vital signs are stable. blood pressure is 156/90, 98.1 degrees. GENERAL APPEARANCE: Thin, chronically ill-appearing, taking liquids. HEENT: Unremarkable. LUNGS: Clear. HEART: Regular rhythm. ABDOMEN: Soft, tender in the right upper quadrant, less so in the left upper quadrant, nondistended. Good bowel sounds. EXTREMITIES: No cyanosis, clubbing or edema. LABORATORY DATA: White count 10.8, hemoglobin is 12.6, platelets are 223,000, sodium is 140, potassium is 4.8, BUN is 2, creatinine is 0.9. Hemoglobin A1c on admission was 12.1. HCG was negative. IMPRESSION: 1. Enterocolitis, continue IV Cipro and Flagyl. She has responded to this. She has improved p.o. intake. 2. Type 1 diabetes, severe gastroparesis. I would recommend that she see an architect marine upon discharge. 3. Chlamydia, genitourinary infection. [facility] is asking us to treat this while in the infection. I typically would use p.o. Doxycycline but with severe GI distress will use IV Doxycycline instead 100 mg b.i.d. for seven days. She needs a repeat test to confirm cure in two weeks. 4. Type 1 diabetes, blood sugars have been fluctuating between 100 and 300, she is out of DKA. [facility]
[2021-06-22] MEDS: DOXYCYCLINE HYCLATE 100 MG in D5W MINI-BAG PLUS 100 ML IV SCH ×2 (11:25→22:51)
[2021-06-22 14:00] VITALS: BP 100/69
[2021-06-22] MEDS: MORPHINE 30 MG TAB **MSIR PO PRN (16:40)
[2021-06-22 17:09] VITALS: O2SAT 98
[2021-06-22] MEDS: LEVEMIR (INSULIN DETEMIR) 1 UNITS/0.01ML SC SCH (21:00)
[2021-06-22 22:00] VITALS: BP 100/69
[2021-06-23] MEDS: HumaLOG INSULIN (NovoLOG) PER UNIT SC SCH ×7 (00:34→23:45)
[2021-06-23] MEDS: metroNIDAZOLE 500 MG in IV 1 EA IV SCH ×3 (00:34→17:22)
[2021-06-23] MEDS: MORPHINE 30 MG TAB **MSIR PO PRN ×4 (02:52→23:59)
[2021-06-23] MEDS: CIPROFLOXACIN 400 MG in IV 1 EA IV SCH ×2 (05:57→18:32)
[2021-06-23] MEDS: MORPHINE 4 MG/ML 1ML VIAL/SYRINGE (J2270) IV PRN ×2 (05:58→21:21)
[2021-06-23 06:23] LABS: BASO % 0.3 % (0.0-1.0); EOS # 0.3 10^3/uL (0.0-0.5); HEMATOCRIT 34.8 % (36.0-47.0); LYMPH % 34.1 % (24.0-44.0); MEAN CORPUSCULAR HEMOGLOBIN 27.4 pg (27.0-33.0); MEAN CORPUSCULAR HGB CONC 31.6 g/dl (32.0-36.5); MEAN CORPUSCULAR VOLUME 86.8 fl (80.0-96.0); MONO # 0.8 10^3/uL (0.0-0.8); MONO % 8.6 % (2.0-8.0); NEUTROPHILS # 4.7 10^3/uL (1.5-8.5); NEUTROPHILS % 53.7 % (36.0-66.0); PLATELET COUNT, AUTOMATED 238 10^3/uL (150-450); RED BLOOD COUNT 4.01 10^6/uL (4.00-5.40); WHITE BLOOD COUNT 8.8 10^3/uL (4.0-10.0)
[2021-06-23 07:02] LABS: ALBUMIN 2.4 GM/DL (3.2-5.2); ALT/SGPT 19 U/L (12-78); BILIRUBIN,TOTAL 0.2 MG/DL (0.2-1.0); BLOOD UREA NITROGEN 5 MG/DL (7-18); CALCIUM LEVEL 7.5 MG/DL (8.5-10.1); CARBON DIOXIDE LEVEL 30 MEQ/L (21-32); CHLORIDE LEVEL 104 MEQ/L (98-107); CREATININE FOR GFR 0.96 MG/DL (0.55-1.30); GLOMERULAR FILTRATION RATE > 60.0 (>60); GLUCOSE, FASTING 259 MG/DL (70-100); MAGNESIUM LEVEL 1.7 MG/DL (1.8-2.4); POTASSIUM SERUM 3.9 MEQ/L (3.5-5.1); SODIUM LEVEL 137 MEQ/L (136-145); TOTAL PROTEIN 5.3 GM/DL (6.4-8.2)
[2021-06-23 08:49] VITALS: O2SAT 96
[2021-06-23] MEDS: SUCRALFATE SUSP 1GM/10ML UD PO SCH ×4 (08:49→21:19)
[2021-06-23] MEDS: PANTOPRAZOLE 40MG VIAL (C9113 PER 1) IV SCH ×2 (08:49→21:19)
[2021-06-23] MEDS: FLUoxetine 20 MG CAP PO SCH ×2 (08:51→21:19)
[2021-06-23] MEDS: OLANZapine 5 MG TAB PO SCH (08:51)
[2021-06-23] MEDS: SODIUM CHLORIDE 0.9% INJ 10 ML SYR IV SCH (08:52)
[2021-06-23] MEDS: SCOPOLAMINE 1MG TRANSDERMAL PATCH TOP SCH (08:52)
[2021-06-23] MEDS: POTASSIUM CHLORIDE 10 MEQ SR TABLET PO SCH ×2 (09:00→20:58)
--- NOTE | 2021-06-23 10:25 | IPN ---
PROGRESS NOTE DATE: 06/23/2021 SUBJECTIVE: Moon feels better. She is starting to take better p.o. including some solid food, less abdominal pain, no fever, no chills. Diabetes has remained about the same. OBJECTIVE: VITAL SIGNS: Afebrile. Vital signs are stable. LUNGS: Clear. HEART: Regular rhythm. ABDOMEN: Soft, she is less tender in both upper quadrants than yesterday, nondistended, good bowel sounds. EXTREMITIES: No peripheral edema. LABORATORY DATA: Blood sugar is between 150 and 300. Electrolytes are unremarkable. Potassium is up to 3.9. CBC is unremarkable. White count is 8.8. IMPRESSION: 1. Enterocolitis, continue IV Cipro and Flagyl, p.o. intake is improving. 2. Chlamydia infection. We started her on IV Doxycycline yesterday, avoiding p.o. due to her enterocolitis and persistent nausea. She will need a seven day course and then a test for cure at two weeks. 3. Type 1 diabetes with severe gastroparesis. She is to see tank washer after discharge, her primary care provider can arrange this. No documented hypoglycemia so we will increase the dose of her Detemir insulin. Anticipate discharge probably Monday.
[2021-06-23] MEDS: DOXYCYCLINE HYCLATE 100 MG in D5W MINI-BAG PLUS 100 ML IV SCH ×2 (10:36→23:58)
[2021-06-23 14:00] VITALS: BP 124/85
[2021-06-23] MEDS ORDERED: LEVEMIR (INSULIN DETEMIR) 1 UNITS/0.01ML SC SCH (21:00)
[2021-06-23] MEDS ORDERED: HumaLOG INSULIN (NovoLOG) PER UNIT SC ONE (21:10)
[2021-06-23] MEDS: SODIUM CHLORIDE 0.9% INJ 10 ML SYR IV PRN ×2 (21:20→23:59)
[2021-06-23] MEDS: LEVEMIR (INSULIN DETEMIR) 1 UNITS/0.01ML SC SCH (21:20)
[2021-06-23 21:58] VITALS: BP 126/91
[2021-06-24] MEDS: metroNIDAZOLE 500 MG in IV 1 EA IV SCH ×3 (01:24→17:56)
[2021-06-24] MEDS: SODIUM CHLORIDE 0.9% INJ 10 ML SYR IV PRN ×7 (02:38→22:26)
[2021-06-24] MEDS: PROMETHAZINE INJ 25 MG/ML VIAL (J2550) IV PRN ×2 (03:02→19:11)
[2021-06-24] MEDS: HumaLOG INSULIN (NovoLOG) PER UNIT SC SCH ×4 (03:39→17:55)
[2021-06-24] MEDS: CIPROFLOXACIN 400 MG in IV 1 EA IV SCH ×2 (05:39→19:11)
[2021-06-24 06:00] VITALS: BP 134/90
[2021-06-24 06:29] LABS: BASO % 0.3 % (0.0-1.0); EOS # 0.1 10^3/uL (0.0-0.5); EOS % 2.4 % (0.0-3.0); HEMATOCRIT 36.1 % (36.0-47.0); HEMOGLOBIN 11.3 g/dl (12.0-15.5); LYMPH # 1.8 10^3/uL (1.5-5.0); LYMPH % 31.1 % (24.0-44.0); MEAN CORPUSCULAR HGB CONC 31.3 g/dl (32.0-36.5); MEAN CORPUSCULAR VOLUME 86.2 fl (80.0-96.0); MONO # 0.6 10^3/uL (0.0-0.8); MONO % 10.8 % (2.0-8.0); NEUTROPHILS # 3.2 10^3/uL (1.5-8.5); NEUTROPHILS % 55.1 % (36.0-66.0); PLATELET COUNT, AUTOMATED 226 10^3/uL (150-450); RED BLOOD COUNT 4.19 10^6/uL (4.00-5.40); WHITE BLOOD COUNT 5.9 10^3/uL (4.0-10.0)
[2021-06-24 06:54] LABS: ALBUMIN 2.3 GM/DL (3.2-5.2); ALT/SGPT 122 U/L (12-78); BILIRUBIN,TOTAL 0.3 MG/DL (0.2-1.0); BLOOD UREA NITROGEN 6 MG/DL (7-18); CALCIUM LEVEL 8.3 MG/DL (8.5-10.1); CARBON DIOXIDE LEVEL 32 MEQ/L (21-32); CHLORIDE LEVEL 107 MEQ/L (98-107); CREATININE FOR GFR 0.75 MG/DL (0.55-1.30); GLOMERULAR FILTRATION RATE > 60.0 (>60); GLUCOSE, FASTING 162 MG/DL (70-100); MAGNESIUM LEVEL 1.6 MG/DL (1.8-2.4); SODIUM LEVEL 140 MEQ/L (136-145); TOTAL PROTEIN 5.7 GM/DL (6.4-8.2)
[2021-06-24] MEDS: OLANZapine 5 MG TAB PO SCH (08:39)
[2021-06-24] MEDS: PANTOPRAZOLE 40MG VIAL (C9113 PER 1) IV SCH ×2 (08:39→21:13)
[2021-06-24] MEDS: FLUoxetine 20 MG CAP PO SCH ×2 (08:40→21:12)
[2021-06-24] MEDS: SUCRALFATE SUSP 1GM/10ML UD PO SCH ×4 (08:40→21:12)
[2021-06-24] MEDS: SODIUM CHLORIDE 0.9% INJ 10 ML SYR IV SCH (08:41)
[2021-06-24] MEDS: MORPHINE 4 MG/ML 1ML VIAL/SYRINGE (J2270) IV PRN ×3 (08:42→21:16)
[2021-06-24] MEDS ORDERED: cloNIDine HCL 0.3 MG/24 HR PATCH TOP SCH (09:00)
[2021-06-24] MEDS ORDERED: POTASSIUM CHLORIDE 10% LIQ 20 MEQ/15 ML UDC PO SCH (09:00)
[2021-06-24] MEDS: DOXYCYCLINE HYCLATE 100 MG in D5W MINI-BAG PLUS 100 ML IV SCH ×2 (10:55→22:26)
[2021-06-24] MEDS ORDERED: **NOTE PATIENT COMMENT** MISC XX SCH (11:30)
[2021-06-24 12:27] LABS: HEPATITIS B SURFACE ANTIGEN NEGATIVE (NEGATIVE)
[2021-06-24 12:56] LABS: HEPATITIS B CORE ANTIBODY IGM NEGATIVE (NEGATIVE); HEPATITIS C VIRUS ABY INDEX < 0.0 INDEX (<0.8)
[2021-06-24 12:57] LABS: HEPATITIS A ANTIBODY IGM NEGATIVE (NEGATIVE)
--- NOTE | 2021-06-24 13:30 | IPN ---
PROGRESS NOTE DATE: 06/24/2021 SUBJECTIVE: Moon's enterocolitis seems better. She is eating better and has progressively less abdominal pain. Liver functions are up today probably from her medications. No right upper quadrant pain. Liver was normal on recent CT scanning. OBJECTIVE: VITAL SIGNS: Afebrile. Vital signs are stable. LUNGS: Clear. HEART: Regular rate and rhythm. ABDOMEN: Soft, mildly tender both upper quadrants, a little less than yesterday. No CVA tenderness. EXTREMITIES: No peripheral edema. LABORATORY DATA: Blood sugars have been in the 100 to 200 range. BUN 6, creatinine 0.7. Potassium is 4. White count 5.9. Hemoglobin 11.3. IMPRESSION: 1. Enterocolitis. Continue Cipro and Flagyl intravenously. Suspect one of these is contributing to abnormal liver functions. 2. Chlamydia infection. She is on IV doxycycline. I am avoiding by mouth doxycycline due to the enterocolitis. She needs a seven day course and test for cure two weeks later. 3. Type 1 diabetes with severe gastroparesis. She is to see medication reconciliation technician after discharge. 4. Abnormal liver function tests. I have asked clinical pharmacology to comment on her medications and see whether they might be causative. I have also ordered a hepatitis panel
[2021-06-24 14:00] VITALS: BP 168/110
[2021-06-24 18:01] VITALS: BP 137/100
[2021-06-24 20:00] VITALS: BP 160/110
[2021-06-24] MEDS ORDERED: HumaLOG INSULIN (NovoLOG) PER UNIT SC SCH (21:00)
[2021-06-24] MEDS: LEVEMIR (INSULIN DETEMIR) 1 UNITS/0.01ML SC SCH (21:13)
[2021-06-24 21:49] VITALS: BP 170/110
[2021-06-24 22:27] VITALS: BP 156/90
[2021-06-25] MEDS: metroNIDAZOLE 500 MG in IV 1 EA IV SCH ×2 (00:12→10:00)
[2021-06-25] MEDS: SODIUM CHLORIDE 0.9% INJ 10 ML SYR IV PRN ×4 (00:12→07:12)
[2021-06-25] MEDS: MORPHINE 30 MG TAB **MSIR PO PRN ×2 (00:13→11:30)
[2021-06-25 02:15] VITALS: BP 156/90
[2021-06-25] MEDS: CIPROFLOXACIN 400 MG in IV 1 EA IV SCH (05:46)
[2021-06-25 06:02] VITALS: BP 172/110
[2021-06-25 06:03] VITALS: BP 172/110
[2021-06-25 06:23] LABS: BASO % 0.4 % (0.0-1.0); EOS # 0.3 10^3/uL (0.0-0.5); EOS % 3.5 % (0.0-3.0); HEMATOCRIT 38.2 % (36.0-47.0); HEMOGLOBIN 11.9 g/dl (12.0-15.5); LYMPH # 2.3 10^3/uL (1.5-5.0); LYMPH % 32.6 % (24.0-44.0); MEAN CORPUSCULAR HEMOGLOBIN 26.8 pg (27.0-33.0); MEAN CORPUSCULAR HGB CONC 31.2 g/dl (32.0-36.5); MONO # 0.7 10^3/uL (0.0-0.8); MONO % 9.6 % (2.0-8.0); NEUTROPHILS # 3.8 10^3/uL (1.5-8.5); NEUTROPHILS % 53.6 % (36.0-66.0); PLATELET COUNT, AUTOMATED 257 10^3/uL (150-450); RED BLOOD COUNT 4.44 10^6/uL (4.00-5.40); WHITE BLOOD COUNT 7.1 10^3/uL (4.0-10.0)
[2021-06-25] MEDS ORDERED: CAPTOpril 12.5 MG TAB PO ONE ×2 (06:30→08:00)
[2021-06-25 06:31] VITALS: BP 172/110
[2021-06-25 06:53] LABS: ALBUMIN 2.6 GM/DL (3.2-5.2); ALT/SGPT 106 U/L (12-78); BILIRUBIN,TOTAL 0.3 MG/DL (0.2-1.0); BLOOD UREA NITROGEN 6 MG/DL (7-18); CALCIUM LEVEL 8.5 MG/DL (8.5-10.1); CARBON DIOXIDE LEVEL 31 MEQ/L (21-32); CHLORIDE LEVEL 102 MEQ/L (98-107); GLOMERULAR FILTRATION RATE > 60.0 (>60); GLUCOSE, FASTING 253 MG/DL (70-100); MAGNESIUM LEVEL 1.5 MG/DL (1.8-2.4); SODIUM LEVEL 140 MEQ/L (136-145); TOTAL PROTEIN 5.9 GM/DL (6.4-8.2)
[2021-06-25] MEDS: SUCRALFATE SUSP 1GM/10ML UD PO SCH (09:56)
[2021-06-25] MEDS: FLUoxetine 20 MG CAP PO SCH (10:00)
[2021-06-25] MEDS: OLANZapine 5 MG TAB PO SCH (10:00)
[2021-06-25] MEDS: PANTOPRAZOLE 40MG VIAL (C9113 PER 1) IV SCH (10:01)
[2021-06-25] MEDS: HumaLOG INSULIN (NovoLOG) PER UNIT SC SCH (10:01)
[2021-06-25 10:05] VITALS: BP 137/86
[2021-06-25] MEDS ORDERED: FLAG500T PO (10:05)
[2021-06-25] MEDS ORDERED: CIPR-249 PO (10:05)
[2021-06-25] MEDS ORDERED: DOXY100C3 PO (10:05)
[2021-06-25] MEDS ORDERED: LISI10TA22 PO (10:15)
--- NOTE | 2021-06-25 11:16 | DSES ---
DISCHARGE SUMMARY DATE OF ADMISSION: 06/16/2021 DATE OF DISCHARGE: 06/25/2021 PRINCIPAL DIAGNOSIS: Enterocolitis. SECONDARY DIAGNOSES: 1. Type 1 diabetes. 2. Gastroparesis. 3. Chronic anxiety. 4. Recent Chlamydia trachomatis STI. 5. Transaminasemia probably from antibiotic therapy. HISTORY: Patient is a type 1 diabetic admitted with abdominal pain. She was proved to have enterocolitis on CT scan. Was admitted for treatment. HOSPITAL COURSE: She had a slow gradual recovery. She was quite uncomfortable early in the hospitalization. Once enterocolitis was diagnosed and treated, placed on IV Cipro and Flagyl. She got better on a daily basis. [facility] called a few days into her admission. She had positive test for urogenital chlamydia. Recommended a seven day course of doxycycline and then a test for cure two weeks later. Her diabetes was managed with sliding scale insulin as well as basal insulin. She had a bump of her liver function tests. I asked clinical pharmacology to evaluate, and they suspected this was related to antibiotics, and liver functions are better today. On the day of discharge, she is ready to go home. She has much less abdominal pain. She is taking p.o. well. She feels she has adequate pain control to go home. PHYSICAL EXAMINATION: VITAL SIGNS: Blood pressure is mildly elevated today, but we will recheck that before discharge. Her blood pressure has been running a little high since she has been in. Thought that was situational. LUNGS: Clear. HEART: Regular rate and rhythm. ABDOMEN: Mildly tender in the left upper quadrant. No guarding, rebound, or referred pain. Much less tender every day including today. LABORATORY DATA: White count 7.1, hemoglobin 11.9, platelets 257. Sodium 140, potassium 4, BUN 6, creatinine 0.7, glucose 253. AST/ALT went from normal to 643/122 yesterday, today they are 91/106. Bilirubin remained normal. Hepatitis panel was negative. Blood sugars were between 100 and 200. DISPOSITION: She was discharged home in improved and stable condition. She will follow up with her primary care provider in a week. Activity as tolerated. Continue a consistent carbohydrate diet. DISCHARGE: MEDICATIONS: 1. She is on 20 units of Lantus and a sliding scale for diabetes. 2. Prozac 40 mg b.i.d. 3. Vitamin D 50,000 units weekly. 4. Olanzapine 5 mg daily. 5. Phenergan 25 mg q.4 hours p.r.n. 6. Cipro 500 mg b.i.d. for five days. 7. Flagyl 500 mg t.i.d. for five days. 8. Doxycycline 100 mg b.i.d. for five more days. Public Health recommends test for cure of chlamydia two weeks after treatment. She should follow up with primary care provider in a week and fund raiser in a week. Consistent carbohydrate diet and activity as tolerated.
[2021-06-25] MEDS: SODIUM CHLORIDE 0.9% INJ 10 ML SYR IV SCH (11:30)
== END 2021-06-25 12:17 | disposition home health service (06) | DRG 392 ==
LOC: M ED 20:10 → M ED INP 20:11 → M PCU 06-15 04:47 → OBSVTOIN 06-16 17:49 → M MSPAV 06-17 19:02
PROVIDERS: ADMIT Internal Medicine; ATTEND Family Medicine
DX: K52.9 Noninfective gastroenteritis and colitis, unspecified (principal); E87.2 Acidosis; K31.84 Gastroparesis; F12.10 Cannabis abuse, uncomplicated; F41.0 Panic disorder [episodic paroxysmal anxiety]; A56.8 Sexually transmitted chlamydial infection of other sites; E10.649 Type 1 diabetes mellitus with hypoglycemia without coma; E83.39 Other disorders of phosphorus metabolism; E87.6 Hypokalemia; E10.43 Type 1 diabetes mellitus with diabetic autonomic (poly)neuropathy; R74.01 Elevation of levels of liver transaminase levels; F40.240 Claustrophobia; E10.65 Type 1 diabetes mellitus with hyperglycemia; Z79.4 Long term (current) use of insulin; Z79.899 Other long term (current) drug therapy; Z88.0 Allergy status to penicillin; Z88.6 Allergy status to analgesic agent; Z88.8 Allergy status to other drugs, medicaments and biological substances; Z90.49 Acquired absence of other specified parts of digestive tract

== ENCOUNTER 2021-06-30 08:51 | Inpatient (IN) | payer OTHER ==
[~2021-06-30] VITALS: Ht 154.9 cm; Wt 52.0 kg
[~2021-06-30 08:51] MED LIST changes: +CIPR-249 PO; +DOXY100C3 PO; +FLAG500T PO; +LISI10TA22 PO
[2021-06-30] MEDS ORDERED: NS 1,000 ML IV ONE ×2 (09:10→11:45)
[2021-06-30] MEDS ORDERED: diphenhydrAMINE 50MG/ML VIAL (J1200) IV STA (09:14)
[2021-06-30] MEDS ORDERED: PROMETHAZINE INJ 25 MG/ML VIAL (J2550) IV ONE (09:15)
[2021-06-30] MEDS ORDERED: MORPHINE 4 MG/ML 1ML VIAL/SYRINGE (J2270) IV ONE ×2 (09:40→13:10)
[2021-06-30 09:46] LABS: BASO # 0.1 10^3/uL (0.0-0.2); BASO % 0.9 % (0.0-1.0); EOS # 0.1 10^3/uL (0.0-0.5); EOS % 0.9 % (0.0-3.0); HEMATOCRIT 41.2 % (36.0-47.0); HEMOGLOBIN 12.7 g/dl (12.0-15.5); LYMPH # 1.5 10^3/uL (1.5-5.0); LYMPH % 14.8 % (24.0-44.0); MEAN CORPUSCULAR HEMOGLOBIN 26.7 pg (27.0-33.0); MEAN CORPUSCULAR HGB CONC 30.8 g/dl (32.0-36.5); MEAN CORPUSCULAR VOLUME 86.7 fl (80.0-96.0); MONO # 0.3 10^3/uL (0.0-0.8); MONO % 3.2 % (2.0-8.0); NEUTROPHILS # 7.9 10^3/uL (1.5-8.5); NEUTROPHILS % 79.7 % (36.0-66.0); PLATELET COUNT, AUTOMATED 319 10^3/uL (150-450); RED BLOOD COUNT 4.75 10^6/uL (4.00-5.40); WHITE BLOOD COUNT 9.9 10^3/uL (4.0-10.0)
[2021-06-30 10:12] LABS: VENOUS PH 7.352 UNITS (7.330-7.430)
[2021-06-30 10:13] LABS: VENOUS BASE EXCESS -3.1 (-2.0-2.0); VENOUS HCO3 22.2 MEQ/L (23.0-27.0); VENOUS O2 SATURATION 86.6 % (60.0-80.0); VENOUS PARTIAL PRESSURE O2 52.6 mmHg (30.0-50.0); VENOUS STANDARD HCO3 21.6 MEQ/L; VENOUS TOTAL CO2 23.5 MEQ/L (24.0-28.0)
[2021-06-30 10:16] LABS: HEMOGLOBIN A1c 10.8 %
[2021-06-30 10:19] LABS: OSMOLALITY SERUM 315 MOSM/KG (275-295)
[2021-06-30 10:29] LABS: RSV AMPLIFICATION NEGATIVE (NEGATIVE)
[2021-06-30] MEDS ORDERED: LISI10TA22 PO (10:53)
[2021-06-30] MEDS ORDERED: DOXY100C3 PO (10:53)
[2021-06-30] MEDS ORDERED: FLAG500T PO (10:53)
[2021-06-30] MEDS ORDERED: CIPR-249 PO (10:53)
[2021-06-30] MEDS ORDERED: HOME MED LIST COMPLETE! XX SCH (10:55)
--- NOTE | 2021-06-30 11:17 | REP ---
INDICATION: DKA. COMPARISON: 06/15/2021. TECHNIQUE: Single portable AP view of the chest was performed. FINDINGS: There is no acute infiltrate or pulmonary edema. Lungs are clear. The heart is not significantly enlarged. The mediastinal silhouette is unremarkable. The visualized osseous structures are intact.Left central venous catheter is again seen with the tip at the junction of the superior vena cava and right atrium. IMPRESSION: No acute pulmonary disease. <Electronically signed by Dharmesh Garcia > 06/30/21 [id number]
[2021-06-30] MEDS ORDERED: PROCHLORPERAZINE 10MG/2ML VIAL (J0780 PER 1) IV ONE (11:45)
[2021-06-30 12:36] LABS: ALBUMIN 3.5 GM/DL (3.2-5.2); ALT/SGPT 45 U/L (12-78); AMYLASE 61 U/L (25-115); BILIRUBIN,DIRECT 0.1 MG/DL (0.0-0.2); BILIRUBIN,TOTAL 0.4 MG/DL (0.2-1.0); BLOOD UREA NITROGEN 12 MG/DL (7-18); CARBON DIOXIDE LEVEL 20 MEQ/L (21-32); CHLORIDE LEVEL 101 MEQ/L (98-107); CREATININE FOR GFR 0.94 MG/DL (0.55-1.30); GLOMERULAR FILTRATION RATE > 60.0 (>60); LIPASE 250 U/L (73-393); POTASSIUM SERUM 4.4 MEQ/L (3.5-5.1); SODIUM LEVEL 137 MEQ/L (136-145); TOTAL PROTEIN 7.2 GM/DL (6.4-8.2)
[2021-06-30 12:43] LABS: ACETONE/KETONE > 46.00 MG/DL (<2.81)
[2021-06-30 12:55] LABS: GLUCOSE, FASTING 562 MG/DL (70-100)
[2021-06-30] MEDS ORDERED: ISOVUE-370 76% 100ML VIAL As Ordered ONE (13:11)
[2021-06-30] MEDS ORDERED: HumuLIN R (REGULAR) INSULIN (NovoLIN R) **100U/ML** PER UNIT IV ONE (13:55)
--- NOTE | 2021-06-30 14:39 | REP ---
INDICATION: abdominal pain and vomiting COMPARISON: 06/18/2021. TECHNIQUE: CT Scan of the abdomen and pelvis was performed with intravenous administration of 100 cc of Isovue 370, without oral contrast. Sagittal and coronal reconstruction images are performed. FINDINGS: Lung bases: There is a small hiatal hernia. Liver: Normal Gallbladder: Prior cholecystectomy. Spleen: Normal. Adrenals: Normal. Pancreas: Normal. Kidneys: There is mild bilateral hydroureteronephrosis, felt to be due to severe distention of the urinary bladder. Small and large bowel: There is no evidence of free intraperitoneal air or bowel obstruction. Free fluid: None. Abdominal aorta: No aneurysm or dissection. Adenopathy: None. Appendix: Prior appendectomy. Osseous structures: Unremarkable. Pelvis: The urinary bladder is markedly distended, as seen on prior study. IMPRESSION: There is mild bilateral hydroureteronephrosis, felt to be due to severe distention of the urinary bladder. <Electronically signed by Dharmesh Garcia > 06/30/21 [id number]
[2021-06-30] MEDS ORDERED: LIDOCAINE 2% 5ML JELLY UROJET TOP ONE ×2 (14:50)
[2021-06-30] MEDS ORDERED: NS 1,000 ML IV SCH (15:20)
[2021-06-30] MEDS ORDERED: INSULIN REGULAR IN 0.9 % NACL 100 UNIT in IV 1 EA IV SCH ×2 (15:20)
[2021-06-30] MEDS ORDERED: KCL 10MEQ/100ML SWI (KRUN) 10 MEQ in IV 1 EA IV ONE (15:20)
[2021-06-30] MEDS ORDERED: LORazepam 2 MG/ML VIAL IV STA (15:25)
--- NOTE | 2021-06-30 15:55 | HPEPDOC ---
[facility] Medical History & Physical Date of Admission Jun 30, 2021 Date of Service: Jun 30, 2021 History and Physical CHIEF COMPLAINT: "Stomach hurts" HISTORY OF PRESENT ILLNESS: 26-year-old female with a past medical history of of type 1 diabetes mellitus, gastroparesis, anxiety, recent chlamydia trigonitis presented to the emergency department with intractable vomiting and abdominal pain. She reports she was recently discharged on 06/25/2021 from [facility] for abdominal pain that was improving. At the time of discharge she was prescribed antibiotics for possible colitis as well as chlamydial infection. However, on 06/29 she began to feel nauseated and abdominal pain. She tried to smoke marijuana for her nausea but it worsened her symptoms resulting in vomiting. Today, her abdominal pain as well as her vomiting became worse. At this junction, she denies chest pain, shortness of breath, problems with urination as well as bowel movements. In the emergency department she received several antiemetics with minimal relief. A CT scan of the abdomen was done that showed a distended bladder with bilateral hydronephrosis. She was also noted to have hyperglycemia with elevated beta hydroxybutyrate. She is now being admitted to the ICU for further management of her hyperosmolar hyperglycemia nonketotic acidosis. PAST MEDICAL HISTORY: As above. PAST SURGICAL HISTORY: 1. Cholecystectomy 2. Appendectomy 3. Tonsillectomy SOCIAL HISTORY: Lives with her at home. She denies smoking and drinking. Occasionally smokes marijuana when she feels nauseated. FAMILY HISTORY: Noncontributory. ALLERGIES: Please see below. REVIEW OF SYSTEMS: 10 point review of system was negative except for what is noted in the HPI HOME MEDICATIONS: Please see below. PHYSICAL EXAMINATION: General: Lying in bed, no acute distress Head/Neck/Throat: Trachea midline, mucous membranes moist Eyes: Sclera anicteric, no erythema or discharge appreciated bilaterally Thorax: Normal respiratory effort on room air, lungs clear to auscultation bilaterally, no wheezes/rales/rhonchi Cardiovascular: Normal rate, regular rhythm, normal S1, S2; no S3, S4, rubs/gallops/murmurs Abdomen: Hypoactive bowel sounds, winces in his pain before abdomen is even touched, mildly distended Genitourinary: No CVA tenderness, no Winters in place. Pelvic exam was deferred. Musculoskeletal: Moving all extremities, no edema Skin: Warm, dry Neurologic: AAOx3, speech fluent and goal-directed, no focal deficits, grossly intact LABORATORY DATA: See below. IMAGING: Please refer to imaging. CT scan of the abdomen did show bilateral hydronephrosis with a distended bladder. MICROBIOLOGY: Please see below. ASSESSMENT/PLAN: #Hyperosmolar hyperglycemic nonketotic acidosis -This may have been exacerbated from her underlying colitis/chlamydia infection. She is presenting with blood glucose levels greater than 250 mg/dL and a beta hydroxybutyrate greater than 45. Although she does not have an anion gap, we will start her on insulin drip for adequate control of her blood glucose levels and for anion gap not opening. -Insulin drip protocol with blood glucose fingersticks every 1 hours. Continue with normal saline at 150 mL/h. Once the blood glucose is below 250 we will switch to D5 half-normal saline and transition her to subcutaneous insulin, and hopefully she will be put tolerating a diet. Chemistry will be monitored every 4 hours. Electrolytes will need to be repleted as required. -We will obtain urinalysis as well as blood cultures. Continue with levofloxacin for treatment of possible colitis as well as her chlamydia. #Chlamydial infection -Continue doxycycline for 2 more days. She was discharged on 06/25 and a 5-day course was recommended, however due to her nausea and vomiting she did not complete this course. #Abdominal pain -This is likely due to her distended bladder in addition, in addition to cannabinoid hematemesis syndrome. -Insert Winters for today to decompress bladder. Trial of voiding tomorrow. -Due to her extensive history of allergies to several antiemetics as well as her prolonged QTC (590) we will utilize lorazepam for nausea and vomiting. This will also help with her anxiety and agitation. #Insulin-dependent diabetes mellitus type 1 -Management for now as mentioned above. #DVT prophylaxis -Lovenox Vital Signs Vital Signs Date Time Temp Pulse Resp B/P (MAP) Pulse Ox O2 Delivery O2 Flow Rate FiO2 06/30/21 15:15 18 110/56 (74) 06/30/21 15:09 125 97 06/30/21 08:57 97.6 Room Air Laboratory Data Labs 24H Laboratory Tests 2 06/30/21 09:22: Immature Granulocyte % (Auto) 0.5, Neutrophils (%) (Auto) 79.7H, Lymphocytes (%) (Auto) 14.8L, Monocytes (%) (Auto) 3.2, Eosinophils (%) (Auto) 0.9, Basophils (%) (Auto) 0.9, Neutrophils # (Auto) 7.9, Lymphocytes # (Auto) 1.5, Monocytes # (Auto) 0.3, Eosinophils # (Auto) 0.1, Basophils # (Auto) 0.1, Nucleated Red Blood Cells % (auto) 0.0, Blood Gas Bicarbonate Standard 21.6, Venous Blood pH 7.352, Venous Blood Partial Pressure CO2 41.0, Venous Blood Partial Pressure O2 52.6H, Venous Blood Total Carbon Dioxide 23.5L, Venous Blood HCO3 22.2L, Venous Blood Oxygen Saturation 86.6H, Venous Blood Base Excess -3.1L, Anion Gap 16, Glomerular Filtration Rate > 60.0, Estimated Mean Plasma Glucose 263H, Hemogl obin A1c 10.8, Osmolality 315H, Lactic Acid Level 1.9, Calcium Level 9.0, Total Bilirubin 0.4, Direct Bilirubin 0.1, Aspartate Amino Transf (AST/SGOT) 15, Alanine Aminotransferase (ALT/SGPT) 45, Alkaline Phosphatase 153H, Total Protein 7.2, Albumin 3.5, Albumin/Globulin Ratio 0.9L, Amylase Level 61, Lipase 250, B- Hydroxybutyrate > 46.00H 06/30/21 09:43: Coronavirus (COVID-19)(PCR) NEGATIVE, Influenza Type A (RT-PCR) NEGATIVE, Influenza Type B (RT-PCR) NEGATIVE, Respiratory Syncytial Virus (PCR) NEGATIVE 06/30/21 11:32: Bedside Glucose (Misc Panel) 400H 06/30/21 14:20: Bedside Glucose (Misc Panel) 426H CBC/BMP Laboratory Tests 06/30/21 09:22 Microbiology Microbiology 06/30/21 Blood Culture, Received Pending Home Medications Scheduled Ciprofloxacin HCl (Cipro) 500 Mg Tablet, 500 MG PO BID Doxycycline Hyclate (Doxycycline Hyclate) 100 Mg Capsule, 100 MG PO BID Ergocalciferol (Vitamin D2) (Vitamin D2) 50,000 Units Cap, 50,000 UNITS PO QWEEK MONDAYS Fluoxetine HCl (Prozac) 40 Mg Capsule, 40 MG PO BID Insulin Aspart (Novolog) 100 Unit/1 Ml Cartridge, 1 DOSE SC AC PER SLIDING SCALE Insulin Glargine,Hum.rec.anlog (Lantus Solostar) 100 Unit/1 Ml Insuln.pen, 20 UNIT SC QHS Lisinopril (Lisinopril) 10 Mg Tablet, 10 MG PO DAILY Metronidazole (Flagyl) 500 Mg Tablet, 500 MG PO Q8H Olanzapine (Olanzapine) 5 Mg Tablet, 5 MG PO DAILY Scheduled PRN Promethazine HCl (Promethazine HCl) 25 Mg Tablet, 25 MG PO Q4H PRN for NAUSEA OR VOMITING Allergies Coded Allergies: amoxicillin (Verified Allergy, Severe, Hives/Throat Swelling, 06/14/21) chlorpromazine (Verified Allergy, Intermediate, HIVES, 06/14/21) HAS TAKEN COMPAZINE WITH NO ISSUES haloperidol (Verified Allergy, Intermediate, HIVES, 06/14/21) metoclopramide (Verified Allergy, Intermediate, HIVES, 06/14/21) ondansetron (Verified Allergy, Mild, hives, 06/17/21) Penicillins (Verified Allergy, Unknown, 10/10/20) ketorolac (Verified Allergy, Unknown, 01/06/21) ibuprofen (Verified Adverse Reaction, Intermediate, GI Bleed, 06/14/21) prochlorperazine (Verified Adverse Reaction, Mild, 06/14/21) Itchy - but can use benedryl as premedicate A-FIB/CHADSVASC A-FIB History Current/History of A-Fib/PAF?: No CHRISTA PANIAGUA M.D. Jun 30, 2021 15:29
[2021-06-30] MEDS ORDERED: INSULIN REGULAR 100UNITS IN 0.9% SODIUM CHLORIDE 100ML IVBAG As Ordered ONE (17:39)
[2021-06-30] MEDS ORDERED: LevoFLOXacin IV 500 MG in IV 1 EA IV SCH (18:00)
[2021-06-30 18:10] LABS: BLOOD UREA NITROGEN 9 MG/DL (7-18); CALCIUM LEVEL 8.5 MG/DL (8.5-10.1); CARBON DIOXIDE LEVEL 17 MEQ/L (21-32); CHLORIDE LEVEL 112 MEQ/L (98-107); CREATININE FOR GFR 0.89 MG/DL (0.55-1.30); GLOMERULAR FILTRATION RATE > 60.0 (>60); GLUCOSE, FASTING 360 MG/DL (70-100); PHOSPHORUS LEVEL 3.1 MG/DL (2.5-4.9); POTASSIUM SERUM 4.5 MEQ/L (3.5-5.1); SODIUM LEVEL 143 MEQ/L (136-145)
--- NOTE | 2021-06-30 19:56 | ECGEPIP ---
[facility] - ED Test Date: 2021-06-30 Pat Name: ANNALISA TA Department: Room: - Gender: Female Matte Cutter: JIMMIE : 1995 Requested By: Gillian Brown Order Number: [id number] Reading MD: Juliano Lopez Measurements Intervals [place] Rate: 131 P: 67 WI: 124 QRS: 89 QRSD: 70 T: 72 QT: 386 QTc: 569 Interpretive Statements Sinus tachycardia Prolonged QTc interval, increased from tracing done 06-14-21 Electronically Signed on 06-30-2021 19:55:55 EDT by Juliano Lopez
[2021-06-30 20:15] VITALS: BP 128/68
[2021-06-30] MEDS: LORazepam 2 MG/ML VIAL IV PRN (20:26)
[2021-06-30] MEDS: DOXYCYCLINE HYCLATE 100 MG in D5W MINI-BAG PLUS 100 ML IV SCH (20:28)
[2021-06-30] MEDS: INSULIN IV RATE CHANGE DOCUMENTATION ML/HR XX SCH ×2 (20:58→22:07)
[2021-06-30 21:00] VITALS: BP 103/54
[2021-06-30 22:00] VITALS: BP 105/58
[2021-06-30] MEDS ORDERED: D5W/0.45% SODIUM CHLORIDE 1,000 ML IV SCH (22:00)
[2021-06-30 23:00] VITALS: BP 109/62
[2021-07-01] VITALS (12 sets, daily range): BP systolic 105–164; BP diastolic 62–101
[2021-07-01 00:43] LABS: BLOOD UREA NITROGEN 9 MG/DL (7-18); CALCIUM LEVEL 8.1 MG/DL (8.5-10.1); CARBON DIOXIDE LEVEL 25 MEQ/L (21-32); CHLORIDE LEVEL 117 MEQ/L (98-107); CREATININE FOR GFR 0.78 MG/DL (0.55-1.30); GLOMERULAR FILTRATION RATE > 60.0 (>60); GLUCOSE, FASTING 157 MG/DL (70-100); PHOSPHORUS LEVEL 2.2 MG/DL (2.5-4.9); SODIUM LEVEL 145 MEQ/L (136-145)
[2021-07-01] MEDS: INSULIN IV RATE CHANGE DOCUMENTATION ML/HR XX SCH ×2 (01:05→02:12)
[2021-07-01] MEDS ORDERED: KCL 20MEQ IN D5/0.45NS 1000ML 1,000 ML IV SCH (01:10)
[2021-07-01 01:28] LABS: MAGNESIUM LEVEL 2.1 MG/DL (1.8-2.4)
[2021-07-01] MEDS ORDERED: LEVEMIR (INSULIN DETEMIR) 1 UNITS/0.01ML SC ONE (01:30)
[2021-07-01] MEDS: LORazepam 2 MG/ML VIAL IV PRN ×3 (01:59→18:42)
[2021-07-01] MEDS ORDERED: ACETAMINOPHEN TAB 650MG DOSE (2X325MG) PO PRN (03:25)
[2021-07-01] MEDS ORDERED: DEXTROSE 50% 50 ML SYRINGE IV PRN (03:30)
[2021-07-01] MEDS ORDERED: GLUCOSE 4GM CHEW TABLET PO PRN (03:30)
[2021-07-01] MEDS ORDERED: GLUCAGON INJ 1MG VIAL SC PRN (03:30)
[2021-07-01 04:21] LABS: BLOOD UREA NITROGEN 7 MG/DL (7-18); CARBON DIOXIDE LEVEL 24 MEQ/L (21-32); CHLORIDE LEVEL 116 MEQ/L (98-107); CREATININE FOR GFR 0.77 MG/DL (0.55-1.30); GLOMERULAR FILTRATION RATE > 60.0 (>60); GLUCOSE, FASTING 206 MG/DL (70-100); MAGNESIUM LEVEL 1.8 MG/DL (1.8-2.4); PHOSPHORUS LEVEL 1.8 MG/DL (2.5-4.9); POTASSIUM SERUM 3.4 MEQ/L (3.5-5.1); SODIUM LEVEL 146 MEQ/L (136-145)
[2021-07-01] MEDS ORDERED: POTASSIUM CHLORIDE 10 MEQ SR TABLET PO ONE (04:35)
[2021-07-01] MEDS ORDERED: POTASSIUM PHOSPHATE INJ 15 MMOL in D5W 250 ML IV ONE (05:00)
[2021-07-01] MEDS ORDERED: HumaLOG INSULIN (NovoLOG) PER UNIT SC SCH ×3 (06:00→21:00)
[2021-07-01 08:54] LABS: BLOOD UREA NITROGEN 6 MG/DL (7-18); CALCIUM LEVEL 8.1 MG/DL (8.5-10.1); CARBON DIOXIDE LEVEL 26 MEQ/L (21-32); CHLORIDE LEVEL 113 MEQ/L (98-107); CREATININE FOR GFR 0.69 MG/DL (0.55-1.30); GLOMERULAR FILTRATION RATE > 60.0 (>60); GLUCOSE, FASTING 229 MG/DL (70-100); PHOSPHORUS LEVEL 3.5 MG/DL (2.5-4.9); POTASSIUM SERUM 3.7 MEQ/L (3.5-5.1); SODIUM LEVEL 144 MEQ/L (136-145)
[2021-07-01] MEDS: NS 0.45% 1,000 ML IV SCH ×3 (09:46→21:26)
[2021-07-01] MEDS: DOXYCYCLINE HYCLATE 100 MG in D5W MINI-BAG PLUS 100 ML IV SCH ×2 (09:46→21:21)
[2021-07-01] MEDS ORDERED: MORPHINE 2 MG/ML 1ML VIAL (J2270) IV PRN (09:55)
--- NOTE | 2021-07-01 09:58 | IPNPDOC ---
Subjective Date Seen The patient was seen on 07/01/21. Subjective Chief Complaint/HPI 26-year-old female presented to the emergency department with worsening abdominal pain, nausea and vomiting. She was seen and examined at bedside this morning. She was awoken from sleep, and immediately began to complain of nausea and abdominal pain which limited review of systems. Objective Physical Examination Other physical findings General: Lying in bed, no acute distress Head/Neck/Throat: Trachea midline, mucous membranes moist Eyes: Sclera anicteric, no erythema or discharge appreciated bilaterally Thorax: Normal respiratory effort on room air, lungs clear to auscultation bilaterally, no wheezes/rales/rhonchi Cardiovascular: Normal rate, regular rhythm, normal S1, S2; no S3, S4, rub s/gallops/murmurs Abdomen: Hypoactive bowel sounds, winces in his pain before abdomen is even touched, mildly distended Genitourinary: No CVA tenderness, Winters draining yellow urine Musculoskeletal: Moving all extremities, no edema Skin: Warm, dry Neurologic: AAOx3, speech fluent and goal-directed, no focal deficits, grossly intact Assessment /Plan Assessment #Hyperosmolar hyperglycemic nonketotic acidosis -Transitioned from insulin drip to her ambulatory basal regimen as well as sliding scale. She tolerated very small portion of her diet. We will change f ingersticks to every 6 hours, hypoglycemic protocol, adjust fluids according to electrolytes and sugars. #Chlamydial infection -Continue doxycycline for 2 more days. She was discharged on 06/25 and a 5-day course was recommended, however due to her nausea and vomiting she did not complete this course. 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 -CT scan of the abdomen showed bilateral hydronephrosis and otherwise was not suggestive of any acute pathology. -Continue Winters for today, trial of voiding on 07/02. -Due to her extensive history of allergies to several antiemetics as well as her prolonged QTC (590) we will utilize lorazepam for nausea and vomiting. This will also help with her anxiety and agitation. #Insulin-dependent diabetes mellitus type 1 -Management for now as mentioned above. #DVT prophylaxis -Lovenox Plan/VTE VTE Prophylaxis Ordered?: Yes VS, I&O, 24H, Fishbone Vital Signs/I&O Vital Signs Date Time Temp Pulse Resp B/P (MAP) Pulse Ox O2 Delivery O2 Flow Rate FiO2 07/01/21 08:00 100.0 116 14 122/72 (89) 96 Room Air I&O- Last 24 Hours up to 6 AM 07/01/21 06:00 Intake Total 3004 ml Output Total 2025 ml Balance 979 ml Laboratory Data 24H LABS Laboratory Tests 2 06/30/21 11:32: Bedside Glucose (Misc Panel) 400H 06/30/21 14:20: Bedside Glucose (Misc Panel) 426H 06/30/21 17:33: Bedside Glucose (Misc Panel) 356H 06/30/21 17:37: Anion Gap 14, Glomerular Filtration Rate > 60.0, Calcium Level 8.5, Phosphorus Level 3.1 06/30/21 18:37: Bedside Glucose (Misc Panel) 323H 06/30/21 19:47: Bedside Glucose (Misc Panel) 243H 06/30/21 20:56: Bedside Glucose (Misc Panel) 174H 06/30/21 22:04: Bedside Glucose (Misc Panel) 137H 06/30/21 23:07: Bedside Glucose (Misc Panel) 140H 06/30/21 23:58: Anion Gap 3L, Glomerular Filtration Rate > 60.0, Calcium Level 8.1L, Phosphorus Level 2.2#L, Magnesium Level 2.1 07/01/21 00:09: Bedside Glucose (Misc Panel) 143H 07/01/21 01:02: Bedside Glucose (Misc Panel) 153H 07/01/21 02:09: Bedside Glucose (Misc Panel) 141H 07/01/21 03:10: Bedside Glucose (Misc Panel) 190H 07/01/21 03:46: Anion Gap 6L, Glomerular Filtration Rate > 60.0, Calcium Level 8.0L, Phosphorus Level 1.8L, Magnesium Level 1.8 07/01/21 04:12: Bedside Glucose (Misc Panel) 188H 07/01/21 05:24: Bedside Glucose (Misc Panel) 217H 07/01/21 08:07: Urine Color YELLOW, Urine Appearance TURBIDH, Urine pH 5.0, Urine Specific [place] 1.021, Urine Protein 1+H, Urine Glucose (UA) 3+H, Urine Ketones TRACEH, Urine Blood NEGATIVE, Urine Nitrite NEGATIVE, Urine Bilirubin NEGATIVE, Urine Urobilinogen 0.2, Urine Leukocyte Esterase NEGATIVE, Urine WBC (Auto) 4H, Urine RBC (Auto) 3, Urine Hyaline Casts (Auto) 0, Urine Bacteria (Auto) 1+H, Urine Squamous Epithelial Cells 1, Urine Uric Acid Crystals (Auto) LARGE, Urine Mucus (Auto) SMALL, Urine Sperm (Auto) , Anion Gap 5L, Glomerular Filtration Rate > 60.0, Calcium Level 8.1L, Phosphorus Level 3.5# 07/01/21 08:11: Bedside Glucose (Misc Panel) 220H CBC/BMP Laboratory Tests 06/30/21 17:37 06/30/21 23:58 07/01/21 03:46 07/01/21 08:07 Microbiology Microbiology 06/30/21 Blood Culture, Received Pending 06/30/21 Blood Culture, Received Pending 06/30/21 Blood Culture - Preliminary, Resulted No growth after 24 hours . All specim... CHRISTA PANIAGUA M.D. Jul 01, 2021 09:50
[2021-07-01] MEDS ORDERED: GI COCKTAIL 50ML BTL(HYOSCYAMINE/MAALOX/LIDOCAINE VISCOUS)(1:3:1) PO ONE (10:00)
[2021-07-01] MEDS: PANTOPRAZOLE 40MG VIAL (C9113 PER 1) IV SCH (10:17)
[2021-07-01] MEDS: MORPHINE 2 MG/ML 1ML VIAL (J2270) IV PRN ×2 (10:18→18:05)
[2021-07-01] MEDS ORDERED: HYDROmorphone 2 MG TAB PO ONE (11:25)
[2021-07-01] MEDS: KCL 10MEQ/100ML SWI (KRUN) 10 MEQ in IV 1 EA IV SCH ×2 (11:56→12:48)
[2021-07-01] MEDS: HumaLOG INSULIN (NovoLOG) PER UNIT SC SCH ×2 (12:49→17:44)
[2021-07-01] MEDS ORDERED: LORazepam 2 MG/ML VIAL As Ordered ONE ×2 (18:30→18:38)
[2021-07-01] MEDS: LEVEMIR (INSULIN DETEMIR) 1 UNITS/0.01ML SC SCH (21:00)
[2021-07-01] MEDS ORDERED: PERCOCET 5MG/325MG TAB PO ONE (22:05)
[2021-07-01] MEDS: PROMETHAZINE INJ 25 MG/ML VIAL (J2550) IV PRN (22:25)
[2021-07-01] MEDS ORDERED: MORPHINE 2 MG/ML 1ML VIAL (J2270) IV ONE (22:25)
[2021-07-02] MEDS: HumaLOG INSULIN (NovoLOG) PER UNIT SC SCH ×4 (00:53→17:42)
[2021-07-02] MEDS: MORPHINE 2 MG/ML 1ML VIAL (J2270) IV PRN ×3 (01:05→18:06)
[2021-07-02 02:59] VITALS: BP 149/98
[2021-07-02] MEDS ORDERED: LORazepam 2 MG/ML VIAL As Ordered ONE (04:13)
[2021-07-02] MEDS: PROMETHAZINE INJ 25 MG/ML VIAL (J2550) IV PRN ×3 (04:18→20:06)
[2021-07-02] MEDS: LORazepam 2 MG/ML VIAL IV PRN (04:18)
[2021-07-02 05:49] LABS: HEMATOCRIT 36.2 % (36.0-47.0); HEMOGLOBIN 11.3 g/dl (12.0-15.5); MEAN CORPUSCULAR HEMOGLOBIN 26.7 pg (27.0-33.0); MEAN CORPUSCULAR HGB CONC 31.2 g/dl (32.0-36.5); MEAN CORPUSCULAR VOLUME 85.6 fl (80.0-96.0); PLATELET COUNT, AUTOMATED 248 10^3/uL (150-450); RED BLOOD COUNT 4.23 10^6/uL (4.00-5.40); WHITE BLOOD COUNT 8.8 10^3/uL (4.0-10.0)
[2021-07-02 06:19] VITALS: BP 132/92
[2021-07-02 06:34] LABS: BLOOD UREA NITROGEN 4 MG/DL (7-18); CALCIUM LEVEL 7.7 MG/DL (8.5-10.1); CARBON DIOXIDE LEVEL 23 MEQ/L (21-32); CHLORIDE LEVEL 104 MEQ/L (98-107); GLOMERULAR FILTRATION RATE > 60.0 (>60); GLUCOSE, FASTING 302 MG/DL (70-100); MAGNESIUM LEVEL 1.7 MG/DL (1.8-2.4); POTASSIUM SERUM 4.2 MEQ/L (3.5-5.1); SODIUM LEVEL 137 MEQ/L (136-145)
--- NOTE | 2021-07-02 08:16 | IPNPDOC ---
Date Seen The patient was seen on 07/02/21. Progress Note pt seen yesterday afternoon states she was voiding just fine before admission catheter in place ct report reviewed, couldn't pull up images for some reason creatinine normal and wbc normal why fevers yesterday? lower urinary tract chlamydia or pharynx or both? 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 would leave catheter in for several days at least I ordered tamsulosin to open pt's bladder neck in anticipation of voiding trial cysto and urodynamics as oupt thank you [phone] VS, I&O, 24H, Fishbone Vital Signs/I&O Vital Signs Date Time Temp Pulse Resp B/P (MAP) Pulse Ox O2 Delivery O2 Flow Rate FiO2 07/02/21 06:19 97.2 119 18 132/92 (105) 93 Room Air I&O- Last 24 Hours up to 6 AM 07/02/21 05:59 Intake Total 3134 ml Output Total 1225 ml Balance 1909 ml Laboratory Data 24H LABS Laboratory Tests 2 07/01/21 10:17: Lactic Acid Level 1.8 07/01/21 12:32: Bedside Glucose (Misc Panel) 164H 07/01/21 17:36: Bedside Glucose (Misc Panel) 64L 07/01/21 17:59: Bedside Glucose (Misc Panel) 84 07/01/21 21:30: Bedside Glucose (Misc Panel) 166H 07/02/21 00:25: Bedside Glucose (Misc Panel) 235H 07/02/21 05:35: Nucleated Red Blood Cells % (auto) 0.0, Anion Gap 10, Glomerular Filtration Rate > 60.0, Calcium Level 7.7L, Phosphorus Level 2.0#L, Magnesium Level 1.7L CBC/BMP Laboratory Tests 07/02/21 05:35 Microbiology Microbiology 06/30/21 Blood Culture - Preliminary, Resulted No growth after 24 hours . All specim... 06/30/21 Blood Culture - Preliminary, Resulted No growth after 24 hours . All specim... 06/30/21 Blood Culture - Preliminary, Resulted No growth after 24 hours . All specim... MADISON GUZMAN MD Jul 02, 2021 08:16 CHRISTA PANIAGUA M.D. Jul 04, 2021 09:10
[2021-07-02] MEDS: NS 0.45% 1,000 ML IV SCH ×2 (08:27→17:42)
[2021-07-02] MEDS: ENOXAPARIN 40MG/0.4ML SYRINGE (J1650 PER 10MG) SC SCH (08:29)
[2021-07-02] MEDS: PANTOPRAZOLE 40MG VIAL (C9113 PER 1) IV SCH (08:30)
[2021-07-02] MEDS: DOXYCYCLINE HYCLATE 100 MG in D5W MINI-BAG PLUS 100 ML IV SCH (08:30)
[2021-07-02] MEDS ORDERED: LEVEMIR (INSULIN DETEMIR) 1 UNITS/0.01ML SC SCH (09:00)
[2021-07-02] MEDS ORDERED: LORazepam 2 MG/ML VIAL IV PRN (10:45)
[2021-07-02] MEDS ORDERED: MAGNESIUM OXIDE 400MG TAB (MAG-OX) PO ONE (11:00)
[2021-07-02] MEDS ORDERED: K-PHOS ORIGINAL (POT.ACID PHOSPHATE) 500MG TAB PO ONE (11:00)
--- NOTE | 2021-07-02 11:00 | IPNPDOC ---
Subjective Date Seen The patient was seen on 07/02/21. Subjective Chief Complaint/HPI Patient was seen and examined at bedside this morning. She was awoken from sleep and immediately then began to complain and cry of pain in her stomach. Although, she reports some improvement from the time of admission. She also reported having associated nausea. She denied headaches, chest pain, shortness of breath, and problems with bowel movements. Other systems 10 point review of system was negative except for what is noted in the HPI Objective Physical Examination Other physical findings General: Lying in bed, no acute distress Head/Neck/Throat: Trachea midline, mucous membranes moist Eyes: Sclera anicteric, no erythema or discharge appreciated bilaterally Thorax: Normal respiratory effort on room air, lungs clear to auscultation bilaterally, no wheezes/rales/rhonchi Cardiovascular: Normal rate, regular rhythm, normal S1, S2; no S3, S4, rubs/gallops/murmurs Abdomen: Bowel sounds appreciated, winces in his pain before abdomen is even touched, soft Genitourinary: No CVA tenderness, Winters draining yellow urine Musculoskeletal: Moving all extremities, no edema Skin: Warm, dry Neurologic: AAOx3, speech fluent and goal-directed, no focal deficits, grossly intact Assessment /Plan Assessment #Hyperosmolar hyperglycemic nonketotic acidosis -Continue with basal and prandial regimen. Elevated AM BG b/c patient refused basal insulin. -Reports she has a appetite to tolerate clear liquids today. #Insulin-dependent diabetes mellitus type 1 -Management for now as mentioned above. #Chlamydial infection -She was discharged on 06/25 and a 5-day course was recommended at that time. She received the remainder of missed doses during hospitalization. She will need to be retested in 2 weeks with her primary care physician. 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 -CT scan of the abdomen showed bilateral hydronephrosis and otherwise was not suggestive of any acute pathology. -Continue Winters for today -appreciate urology input. -CTA of abd and pelvis is negative. -Due to her extensive history of allergies to several antiemetics as well as her prolonged QTC (590) we will utilize lorazepam for nausea and vomiting. This will also help with her anxiety and agitation. #DVT prophylaxis -Lovenox Plan/VTE VTE Prophylaxis Ordered?: Yes VS, I&O, 24H, Fishbone Vital Signs/I&O Vital Signs Date Time Temp Pulse Resp B/P (MAP) Pulse Ox O2 Delivery O2 Flow Rate FiO2 07/02/21 08:39 16 07/02/21 06:19 97.2 119 132/92 (105) 93 Room Air I&O- Last 24 Hours up to 6 AM 07/02/21 06:00 Intake Total 3125 ml Output Total 1150 ml Balance 1975 ml Laboratory Data 24H LABS Laboratory Tests 2 07/01/21 12:32: Bedside Glucose (Misc Panel) 164H 07/01/21 17:36: Bedside Glucose (Misc Panel) 64L 07/01/21 17:59: Bedside Glucose (Misc Panel) 84 07/01/21 21:30: Bedside Glucose (Misc Panel) 166H 07/02/21 00:25: Bedside Glucose (Misc Panel) 235H 07/02/21 05:35: Nucleated Red Blood Cells % (auto) 0.0, Anion Gap 10, Glomerular Filtration Rate > 60.0, Calcium Level 7.7L, Phosphorus Level 2.0#L, Magnesium Level 1.7L CBC/BMP Laboratory Tests 07/02/21 05:35 Microbiology Microbiology 06/30/21 Blood Culture - Preliminary, Resulted No growth after 24 hours . All specim... 06/30/21 Blood Culture - Preliminary, Resulted No growth after 24 hours . All specim... 06/30/21 Blood Culture - Preliminary, Resulted No Growth after 48 hours. All Specime... CHRISTA PANIAGUA M.D. Jul 02, 2021 10:56
[2021-07-02] MEDS ORDERED: ISOVUE-370 76% 100ML VIAL As Ordered ONE (11:14)
[2021-07-02] MEDS ORDERED: MORPHINE 4 MG/ML 1ML VIAL/SYRINGE (J2270) IV ONE (11:50)
--- NOTE | 2021-07-02 13:13 | REP ---
INDICATION: r/o occlusion COMPARISON: 06/30/2021. TECHNIQUE: CT angiogram of the abdomen and pelvis was performed with intravenous administration of 100 cc of Isovue 370, without oral contrast. 3D MIP reconstruction images performed. FINDINGS: Abdominal aorta: No aneurysm or dissection. The mesenteric arteries demonstrate no significant stenosis or evidence of occlusion. The bilateral renal arteries are patent with no stenosis or occlusion. The bilateral common iliac, external iliac, internal iliac, common femoral and proximal superficial femoral arteries are widely patent with no stenosis or occlusion. Lung bases: Unremarkable. Liver: Normal Gallbladder: Prior cholecystectomy. Spleen: Normal. Adrenals: Normal. Pancreas: Normal. Kidneys: No evidence of mass or hydronephrosis. Small and large bowel: No free air or obstruction. Free fluid: There is mild free fluid in the pelvis. Adenopathy: None. Appendix: Prior appendectomy. Pelvis: No mass. A Winters catheter is seen in the urinary bladder, which contains mild air and fluid. There is significant decrease in size of the urinary bladder compared to the prior exam. Osseous structures: Unremarkable. IMPRESSION: No abdominal aortic aneurysm or dissection. No evidence of significant stenosis or occlusion of any of the abdominal arterial structures as discussed above. Mild free fluid in the pelvis. Winters catheter is seen in the urinary bladder, which is significantly decreased in size compared to the prior study. <Electronically signed by Dharmesh Garcia > 07/02/21 [id number]
[2021-07-02 14:00] VITALS: BP 123/80
--- NOTE | 2021-07-02 16:39 | ECGEPIP ---
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
[2021-07-03] MEDS: HumaLOG INSULIN (NovoLOG) PER UNIT SC SCH ×4 (00:09→17:17)
[2021-07-03] MEDS: MORPHINE 2 MG/ML 1ML VIAL (J2270) IV PRN ×2 (00:10→06:27)
[2021-07-03] MEDS: NS 0.45% 1,000 ML IV SCH ×3 (03:13→17:24)
[2021-07-03 06:00] VITALS: BP 143/92
[2021-07-03 06:56] LABS: HEMATOCRIT 37.5 % (36.0-47.0); HEMOGLOBIN 11.8 g/dl (12.0-15.5); MEAN CORPUSCULAR HEMOGLOBIN 27.1 pg (27.0-33.0); MEAN CORPUSCULAR HGB CONC 31.5 g/dl (32.0-36.5); PLATELET COUNT, AUTOMATED 228 10^3/uL (150-450); RED BLOOD COUNT 4.36 10^6/uL (4.00-5.40); WHITE BLOOD COUNT 6.2 10^3/uL (4.0-10.0)
[2021-07-03] MEDS: PROMETHAZINE INJ 25 MG/ML VIAL (J2550) IV PRN ×3 (06:56→22:50)
[2021-07-03 07:15] LABS: BLOOD UREA NITROGEN 3 MG/DL (7-18); CALCIUM LEVEL 7.5 MG/DL (8.5-10.1); CARBON DIOXIDE LEVEL 29 MEQ/L (21-32); CHLORIDE LEVEL 107 MEQ/L (98-107); CREATININE FOR GFR 0.44 MG/DL (0.55-1.30); GLOMERULAR FILTRATION RATE > 60.0 (>60); GLUCOSE, FASTING 148 MG/DL (70-100); MAGNESIUM LEVEL 1.9 MG/DL (1.8-2.4); PHOSPHORUS LEVEL 2.5 MG/DL (2.5-4.9); POTASSIUM SERUM 3.9 MEQ/L (3.5-5.1); SODIUM LEVEL 138 MEQ/L (136-145)
[2021-07-03] MEDS: PANTOPRAZOLE 40MG VIAL (C9113 PER 1) IV SCH (08:45)
[2021-07-03] MEDS: ENOXAPARIN 40MG/0.4ML SYRINGE (J1650 PER 10MG) SC SCH (08:45)
[2021-07-03] MEDS: LORazepam 2 MG/ML VIAL IV PRN ×2 (08:46→17:17)
[2021-07-03 14:00] VITALS: BP 146/107
[2021-07-03] MEDS ORDERED: hydrOXYzine 10 MG TAB PO ONE (16:00)
[2021-07-03] MEDS ORDERED: ACETAMINOPHEN *IV* 650 MG in IV 1 EA IV ONE (18:30)
[2021-07-03] MEDS: CAPSAICIN 0.025% CR 60 GM TOP SCH (20:51)
[2021-07-03] MEDS: LEVEMIR (INSULIN DETEMIR) 1 UNITS/0.01ML SC SCH (21:00)
[2021-07-03 22:00] VITALS: BP 128/84
[2021-07-04] MEDS: HumaLOG INSULIN (NovoLOG) PER UNIT SC SCH ×3 (00:53→11:13)
[2021-07-04] MEDS: NS 0.45% 1,000 ML IV SCH ×2 (00:53→08:34)
[2021-07-04 06:00] VITALS: BP 168/90
[2021-07-04] MEDS: PROMETHAZINE INJ 25 MG/ML VIAL (J2550) IV PRN (06:18)
--- NOTE | 2021-07-04 07:16 | IPNPDOC ---
Subjective Date Seen The patient was seen on 07/03/21. Subjective Chief Complaint/HPI Patient seen and examined at bedside this morning. She was on her stomach, yelling/moaning reporting she has abdominal pain. She claimed to have vomited but her vomit bag was filled with sputum. She asked for morphine, Dilaudid, or iv Benadryl. She was explained morphine may make her nausea worst, and by withholding it for a day, she was already able to tolerate a clear liquid diet. She did endorse there was improvement in her pain for the time of admission. She denies chest pain, shortness of breath, dysuria, and frequency. Other systems 10 point review of system was negative except for what is noted in the HPI Objective Physical Examination Other physical findings General: Lying in bed, no acute distress Head/Neck/Throat: Trachea midline, mucous membranes moist Eyes: Sclera anicteric, no erythema or discharge appreciated bilaterally Thorax: Normal respiratory effort on room air, lungs clear to auscultation bilaterally, no wheezes/rales/rhonchi Cardiovascular: Normal rate, regular rhythm, normal S1, S2; no S3, S4, rubs/gallops/murmurs Abdomen: Bowel sounds appreciated, winces in his pain before abdomen is even touched, soft, no rebound tenderness, when distracted and abdomen is palpated there is no tenderness reported. Genitourinary: No CVA tenderness, Winters draining yellow urine Musculoskeletal: Moving all extremities, no edema Skin: Warm, dry Neurologic: AAOx3, speech fluent and goal-directed, no focal deficits, grossly intact Assessment /Plan Assessment #Hyperosmolar hyperglycemic nonketotic acidosis -Resolved. -Continue with sliding scale regimen for now. -Has a appetite to tolerate clear liquids today. #Insulin-dependent diabetes mellitus type 1 -Management for now as mentioned above. #Chlamydial infection -She was discharged on 06/25 and a 5-day course was recommended at that time. She received the remainder of missed doses during hospitalization. She will need to be retested in 2 weeks with her primary care physician. #Abdominal pain -Related to cannabinoid hematemesis syndrome. -CT scan of the abdomen showed bilateral hydronephrosis and otherwise was not suggestive of any acute pathology. Plan to continue Winters as per urology recommendations. -CTA of abd and pelvis is negative. -Due to her extensive history of allergies to several antiemetics as well as her prolonged QTC (590) we will utilize lorazepam for nausea and vomiting. This will also help with her anxiety and agitation. #Prolonged qtc -2/2 to pharmacology. Repeat EKG shows decrease in her QTC to 489. #DVT prophylaxis -Lovenox Plan/VTE VTE Prophylaxis Ordered?: Yes VS, I&O, 24H, Fishbone Vital Signs/I&O Vital Signs Date Time Temp Pulse Resp B/P (MAP) Pulse Ox O2 Delivery O2 Flow Rate FiO2 07/03/21 06:45 17 07/03/21 06:00 98.3 101 143/92 (109) 96 Room Air I&O- Last 24 Hours up to 6 AM 07/03/21 06:00 Intake Total 4505 ml Output Total 4400 ml Balance 105 ml Laboratory Data 24H LABS Laboratory Tests 2 07/02/21 17:24: Bedside Glucose (Misc Panel) 49L 07/02/21 17:30: Bedside Glucose Confirm (Misc) 64 07/02/21 18:20: Bedside Glucose (Misc Panel) 140H 07/02/21 20:56: Bedside Glucose (Misc Panel) 227H 07/02/21 23:49: Bedside Glucose (Misc Panel) 234H 07/03/21 04:19: Bedside Glucose (Misc Panel) 69L 07/03/21 05:58: Bedside Glucose (Misc Panel) 118H 07/03/21 06:22: Nucleated Red Blood Cells % (auto) 0.0, Anion Gap 2L, Glomerular Filtration Rate > 60.0, Calcium Level 7.5L, Phosphorus Level 2.5#, Magnesium Level 1.9 07/03/21 10:28: Bedside Glucose (Misc Panel) 274H CBC/BMP Laboratory Tests 07/03/21 06:22 Microbiology Microbiology 06/30/21 Blood Culture - Preliminary, Resulted No Growth after 48 hours. All Specime... 06/30/21 Blood Culture - Preliminary, Resulted No Growth after 48 hours. All Specime... 06/30/21 Blood Culture - Preliminary, Resulted No Growth after 72 hours. All specime... CHRISTA PANIAGUA M.D. Jul 03, 2021 15:51
[2021-07-04] MEDS: ENOXAPARIN 40MG/0.4ML SYRINGE (J1650 PER 10MG) SC SCH (08:34)
[2021-07-04] MEDS: CAPSAICIN 0.025% CR 60 GM TOP SCH (08:34)
[2021-07-04] MEDS: PANTOPRAZOLE 40MG VIAL (C9113 PER 1) IV SCH (08:34)
[2021-07-04] MEDS ORDERED: SCOPOLAMINE 1MG TRANSDERMAL PATCH TOP SCH (09:00)
[2021-07-04] MEDS ORDERED: PANTOPRAZOLE 40MG VIAL (C9113 PER 1) IV SCH ×2 (09:00→21:00)
[2021-07-04] MEDS ORDERED: cloNIDine HCL 0.1 MG/24 HR PATCH TOP SCH (09:00)
[2021-07-04] MEDS ORDERED: ALPRAZolam 0.5 MG TAB PO ONE (10:05)
[2021-07-04] MEDS ORDERED: diphenhydrAMINE 50MG/ML VIAL (J1200) IV ONE (10:05)
[2021-07-04] MEDS ORDERED: PROMETHAZINE INJ 25 MG/ML VIAL (J2550) IV ONE (10:05)
[2021-07-04] MEDS ORDERED: MAG SULF 1GM/100ML (MAG RUN) 1 GM in IV 1 EA IV ONE (11:00)
[2021-07-04 11:11] VITALS: BP 152/108
[2021-07-04 14:00] VITALS: BP 163/111
[2021-07-04 14:06] LABS: GC DNA AMPLIFICATION NEGATIVE (NEGATIVE)
[2021-07-04] MEDS ORDERED: SODIUM CHLORIDE 0.9% INJ 10 ML SYR IV PRN (16:05)
[2021-07-04 16:22] LABS: BASO # 0.1 10^3/uL (0.0-0.2); EOS # 0.1 10^3/uL (0.0-0.5); EOS % 1.3 % (0.0-3.0); HEMATOCRIT 34.4 % (36.0-47.0); LYMPH # 3.5 10^3/uL (1.5-5.0); LYMPH % 48.5 % (24.0-44.0); MEAN CORPUSCULAR HEMOGLOBIN 26.9 pg (27.0-33.0); MEAN CORPUSCULAR VOLUME 84.1 fl (80.0-96.0); MONO # 0.4 10^3/uL (0.0-0.8); NEUTROPHILS # 3.1 10^3/uL (1.5-8.5); NEUTROPHILS % 43.1 % (36.0-66.0); PLATELET COUNT, AUTOMATED 214 10^3/uL (150-450); RED BLOOD COUNT 4.09 10^6/uL (4.00-5.40); WHITE BLOOD COUNT 7.2 10^3/uL (4.0-10.0)
[2021-07-04 16:40] LABS: ALBUMIN 2.6 GM/DL (3.2-5.2); ALT/SGPT 30 U/L (12-78); BILIRUBIN,TOTAL 0.4 MG/DL (0.2-1.0); BLOOD UREA NITROGEN 2 MG/DL (7-18); CALCIUM LEVEL 7.7 MG/DL (8.5-10.1); CARBON DIOXIDE LEVEL 27 MEQ/L (21-32); CHLORIDE LEVEL 109 MEQ/L (98-107); CREATININE FOR GFR 0.43 MG/DL (0.55-1.30); ERYTHROCYTE SEDIMENTATION RATE 11 mm/hr (0-20); GLOMERULAR FILTRATION RATE > 60.0 (>60); GLUCOSE, FASTING 125 MG/DL (70-100); POTASSIUM SERUM 3.3 MEQ/L (3.5-5.1); SODIUM LEVEL 142 MEQ/L (136-145); TOTAL PROTEIN 5.6 GM/DL (6.4-8.2)
--- NOTE | 2021-07-04 17:25 | IPNPDOC ---
Date Seen The patient was seen on 07/04/21. Progress Note Pt wants to sign out against medical advice without being evaluated by the psychiatrist Dr. West. with her on the phone, grecia Haile, and RN at the bedside, pt says, "I'm not going to kill myself." Per Dr. West, if the patient says she is not having suicidal thoughts, no suicidal plan, she may leave against medical advice. Her and 2 witnesses have heard the patient say, "I just want to go home. I want the catheter out. " When asked, "are you going to kill yourself," she says, "no." Assessment: Urine retention: per urologist recommendations, majano to be kept at discharge, flomax continued pt refusing to keep majano, so it can be discontinued prior to leaving [facility]. I told the that she will have urine retention and worsening pain without the majano, but patient says, "I'll come back if I'm in pain again." Suicidal remark: she said earlier, "I'd rather than be in pain."-grecia provided, psychiatrist consulted She now denies wanting to harm herself. She now denies wanting to kill herself. was on the phone when the patient said, "no," when asked if she will kill herself. Per Dr. West, psychiatrist, as long as the patient denies suicidal ideation, suicidal plan, she may leave AMA. Depression: due to chronic pain. Pt refuses to see a psychiatrist. PLAN: SINCE THE PATIENT DOES NOT HAVE ACTIVE SUICIDAL IDEAS, PLAN, PER DR. WEST PSYCHIATRIST, SHE MAY LEAVE AMA WITHOUT BEING EVALUATED BY A PSYCHIATRIST. SHE IS TO FOLLOWUP WITH UROLOGY AND PCP WITHIN 5DAYS OF DISCHARGE. SHE IS TO RETURN TO THE ER IF WORSENING SYMPTOMS. VS, I&O, 24H, Fishbone Vital Signs/I&O Vital Signs Date Time Temp Pulse Resp B/P (MAP) Pulse Ox O2 Delivery O2 Flow Rate FiO2 07/04/21 11:11 152/108 07/04/21 06:00 98.9 119 18 99 Room Air I&O- Last 24 Hours up to 6 AM 07/04/21 06:00 Intake Total 3105 ml Output Total 3240 ml Balance -135 ml Laboratory Data 24H LABS Laboratory Tests 2 07/03/21 17:29: Troponin I < 0.02 07/03/21 19:39: Bedside Glucose (Misc Panel) 137H 07/03/21 20:54: Troponin I < 0.02 07/04/21 00:34: Bedside Glucose (Misc Panel) 236H 07/04/21 06:19: Bedside Glucose (Misc Panel) 220H 07/04/21 10:17: Bedside Glucose (Misc Panel) 154H 07/04/21 11:21: Chlamydia trachomatis DNA (KELLY) NEGATIVE, Neisseria gonorrhoeae DNA (KELLY) NEGATIVE, Trichomonas vaginalis (PCR) NOT DETECTED 07/04/21 12:04: Bedside Glucose (Misc Panel) 147H 07/04/21 16:08: Immature Granulocyte % (Auto) 0.1, Neutrophils (%) (Auto) 43.1, Lymphocytes (%) (Auto) 48.5H, Monocytes (%) (Auto) 6.0, Eosinophils (%) (Auto) 1.3, Basophils (%) (Auto) 1.0, Neutrophils # (Auto) 3.1, Lymphocytes # (Auto) 3.5, Monocytes # (Auto) 0.4, Eosinophils # (Auto) 0.1, Basophils # (Auto) 0.1, Nucleated Red Blood Cells % (auto) 0.0, Erythrocyte Sedimentation Rate 11, Urine Color YELLOW, Urine Appearance HAZY, Urine pH 5.0, Urine Specific [place] 1.010, Urine Protein 2+H, Urine Glucose (UA) 1+H, Urine Ketones 1+H, Urine Blood 2+H, Urine Nitrite NEGATIVE, Urine Bilirubin NEGATIVE, Urine Urobilinogen 0.2, Urine Leukocyte Esterase NEGATIVE, Urine WBC (Auto) 5H, Urine RBC (Auto) 14H, Urine Hyaline Casts (Auto) 0, Urine Bacteria (Auto) NEGATIVE, Urine Squamous Epithelial Cells 0, Urine Mucus (Auto) SMALL, Urine Sperm (Auto) , Anion Gap 6L, Glomerular [place] tration Rate > 60.0, Calcium Level 7.7L, Magnesium Level 2.0, Total Bilirubin 0.4, Aspartate Amino Transf (AST/SGOT) 15, Alanine Aminotransferase (ALT/SGPT) 30, Alkaline Phosphatase 96, C-Reactive Protein, Quantitative 0.30, Total Protein 5.6L, Albumin 2.6L, Albumin/Globulin Ratio 0.9L 07/04/21 16:36: Bedside Glucose (Misc Panel) 152H CBC/BMP Laboratory Tests 07/04/21 16:08 Microbiology Microbiology 06/30/21 Blood Culture - Preliminary, Resulted No Growth after 72 hours. All specime... 06/30/21 Blood Culture - Preliminary, Resulted No Growth after 72 hours. All specime... 06/30/21 Blood Culture - Preliminary, Resulted No Growth after 72 hours. All specime... ZAY SESAY MD Jul 04, 2021 17:25
[2021-07-04] MEDS ORDERED: FLOM0.4C39 PO ×2 (17:27→17:29)
--- NOTE | 2021-07-04 18:18 | DS.PDOC ---
Discharge Summary General Date of Admission Jun 30, 2021 at 15:14 Date of Discharge 07/04/21 SIGNED OUT against medical advice Discharge Summary PROCEDURES PERFORMED DURING STAY: NONE DISCHARGE DIAGNOSES: Hyperosmolar nonketotic hyperglycemic state DM type 1, uncontrolled Gastroparesis urine retention requiring majano chronic abdominal pain Depression -refused to see a psychiatrist Suicidal statement- denies suicidal ideation/plan at discharge PSYCHIATRIST: Dr. West UROLOGIST: DISCHARGE INSTRUCTIONS: Pt signed out AMA. I had a discussion with the that pt needs the majano, but adamant about removing it prior to discharge, "or I'll pull it out myself," and refuses to see a psychiatrist. Pt is to fu with urologist and psychiatrist nola within 1 wk. pcp within 5days. COMPLICATIONS/CHIEF COMPLAINT: Hyperosmolar Hyperglycemic State (Hhs). HOSPITAL COURSE: 26 y/o F admitted for intractable abd pain, n/v found to have Hyperosmolar hyperglycemia treated with insulin iv gtt in ICU, and had urine retention evaluated by urology w recommendations to keep majano at discharge and continue on flomax. She demanded iv dilaudid and iv morphine. CT abd/pelvis should mild hydronephrosis but with normal creatinine. Per urologist, no cystoscopy needed since pt had normal creatinine, and majano placed. Pt had infusaport used for ivfluids, iv emetics. repeat ctabd w contrast- no patholgy. blood cx negative. Pt was previously discharged on flagyl and cipro for presumed colitis, but repeat ct abd was negative. Pt's intractable nausea and vomiting was thought to be due to gastroparesis, and she was placed on phenergan which she tolerates when given with benadryl, liquid diet and small frequent meals were encouraged. she was given PPI for abd pain. Pt fired Dr. Sow, for refusing to give iv morphine and iv dilaudid. Dr. Sesay was asked to see the patient. After a lengthy discussion with her about the patient's abd complaints which is out of proportion to her clinical exam and objective findings including blood work, imaging studies, Dr. Sesay recommended psychiatric evaluation for two reasons. Pt said, "I would rather be that to have this pain," and pt has been crying and moaning incessantly demanding iv dilaudid and iv morphine. A one on one sitter was provided, and Dr. West was consulted to help manage severe depression and rule out acute suicidal ideation. Pt was adamant about receiving narcotics, and insisted that tylenol and ibuprofen "don't help me." She was given xanax for anxiety, and slept during the morning. When she woke up, pt said "I just want to go home." she was asked to wait for the psychiatrist, and to give consent to obtain records from other hospitals where she was previously admitted. Pt started to pick on her scabs on her b/l LE, and yelling, " I want this out?" referring to her catheter, "I'm going home." Pt wanted to sign out against medical advice without being evaluated by the psychiatrist Dr. West. With her on the phone, grecia Haile, and RN at the bedside, pt says, "I'm not going to kill myself." Per Dr. West, if the patient says she is not having suicidal thoughts, no suicidal plan, she may leave against medical advice. Her and 2 witnesses have heard the patient say, "I just want to go home. I want this out. " When asked, "are you going to kill yourself," she says, "no." Urine retention: per urologist recommendations, majano to be kept at discharge, flomax continuedpt refusing to keep majano, so it was discontinued prior to leaving [facility].I told the that she will have urine retention and worsening pain without the majano, but patient says, "I'll come back if I'm in pain again." Suicidal remark: she said earlier, "I would rather be than be in pain"- sitter provided, psychiatrist consulted She now denies wanting to harm herself. She now denies wanting to kill herself. was on the phone when the patient said, "no," when asked if she will kill herself. Per Dr. West, psychiatrist, as long as the patient denies suicidal ideation, suicidal plan, she may leave AMA. Depression: due to chronic pain. Pt refuses to see a psychiatrist. SINCE THE PATIENT DOES NOT HAVE ACTIVE SUICIDAL IDEAS, PLAN, PER DR. WEST PSYCHIATRIST, SHE MAY LEAVE AMA WITHOUT BEING EVALUATED BY A PSYCHIATRIST. SHE IS TO FOLLOWUP WITH UROLOGY AND PCP WITHIN 5DAYS OF DISCHARGE. SHE IS TO RETURN TO THE ER IF WORSENING SYMPTOMS. DISCHARGE MEDICATIONS: Please see below. ALLERGIES: Please see below. PHYSICAL EXAMINATION ON DISCHARGE: VITAL SIGNS: Please see below. refused LABORATORY DATA: Please see below. IMAGING/MICROBIOLOGY: PLS SEE CHART DISPOSITION: 07 Against Medical Advice. TIME SPENT ON DISCHARGE:30 minutes. Vital Signs/I&Os Vital Signs Date Time Temp Pulse Resp B/P (MAP) Pulse Ox O2 Delivery O2 Flow Rate FiO2 07/04/21 14:00 98.4 126 19 163/111 (128) 99 Room Air I&O- Last 24 Hours up to 6 AM 07/04/21 06:00 Intake Total 3105 ml Output Total 3240 ml Balance -135 ml Laboratory Data Labs 24H Laboratory Tests 2 07/03/21 19:39: Bedside Glucose (Misc Panel) 137H 07/03/21 20:54: Troponin I < 0.02 07/04/21 00:34: Bedside Glucose (Misc Panel) 236H 07/04/21 06:19: Bedside Glucose (Misc Panel) 220H 07/04/21 10:17: Bedside Glucose (Misc Panel) 154H 07/04/21 11:21: Chlamydia trachomatis DNA (KELLY) NEGATIVE, Neisseria gonorrhoeae DNA (KELLY) NEGATIVE, Trichomonas vaginalis (PCR) NOT DETECTED 07/04/21 12:04: Bedside Glucose (Misc Panel) 147H 07/04/21 16:08: Immature Granulocyte % (Auto) 0.1, Neutrophils (%) (Auto) 43.1, Lymphocytes (%) (Auto) 48.5H, Monocytes (%) (Auto) 6.0, Eosinophils (%) (Auto) 1.3, Basophils (%) (Auto) 1.0, Neutrophils # (Auto) 3.1, Lymphocytes # (Auto) 3.5, Monocytes # (Auto) 0.4, Eosinophils # (Auto) 0.1, Basophils # (Auto) 0.1, Nucleated Red Blood Cells % (auto) 0.0, Erythrocyte Sedimentation Rate 11, Urine Color YELLOW, Urine Appearance HAZY, Urine pH 5.0, Urine Specific [place] 1.010, Urine Protein 2+H, Urine Glucose (UA) 1+H, Urine Ketones 1+H, Urine Blood 2+H, Urine Nitrite NEGATIVE, Urine Bilirubin NEGATIVE, Urine Urobilinogen 0.2, Urine Leukocyte Esterase NEGATIVE, Urine WBC (Auto) 5H, Urine RBC (Auto) 14H, Urine Hyaline Casts (Auto) 0, Urine Bacteria (Auto) NEGATIVE, Urine Squamous Epithelial Cells 0, Urine Mucus (Auto) SMALL, Urine Sperm (Auto) , Anion Gap 6L, Glomerular Filtration Rate > 60.0, Calcium Level 7.7L, Magnesium Level 2.0, Total Bilirubin 0.4, Aspartate Amino Transf (AST/SGOT) 15, Alanine Aminotransferase (ALT/SGPT) 30, Alkaline Phosphatase 96, C-Reactive Protein, Quantitative 0.30, Total Protein 5.6L, Albumin 2.6L, Albumin/Globulin Ratio 0.9L 07/04/21 16:36: Bedside Glucose (Misc Panel) 152H CBC/BMP Laboratory Tests 07/04/21 16:08 FSBS Laboratory Tests Test 07/03/21 19:39 07/04/21 00:34 07/04/21 06:19 07/04/21 10:17 Range/Units Bedside Glucose (Misc Panel) 137 236 220 154 70-105 MG/DL Test 07/04/21 12:04 07/04/21 16:36 Range/Units Bedside Glucose (Misc Panel) 147 152 70-105 MG/DL Microbiology Microbiology 06/30/21 Blood Culture - Preliminary, Resulted No Growth after 72 hours. All specime... 06/30/21 Blood Culture - Preliminary, Resulted No Growth after 72 hours. All specime... 06/30/21 Blood Culture - Preliminary, Resulted No Growth after 72 hours. All specime... Discharge Medications Scheduled Ciprofloxacin HCl (Cipro) 500 Mg Tablet, 500 MG PO BID, (Reported) Doxycycline Hyclate (Doxycycline Hyclate) 100 Mg Capsule, 100 MG PO BID, (Reported) Ergocalciferol (Vitamin D2) (Vitamin D2) 50,000 Units Cap, 50,000 UNITS PO QWEEK, (Reported) MONDAYS Fluoxetine HCl (Prozac) 40 Mg Capsule, 40 MG PO BID, (Reported) Insulin Aspart (Novolog) 100 Unit/1 Ml Cartridge, 1 DOSE SC AC, (Reported) PER SLIDING SCALE Insulin Glargine,Hum.rec.anlog (Lantus Solostar) 100 Unit/1 Ml Insuln.pen, 20 UNIT SC QHS, (Reported) Lisinopril (Lisinopril) 10 Mg Tablet, 10 MG PO DAILY, (Reported) Metronidazole (Flagyl) 500 Mg Tablet, 500 MG PO Q8H, (Reported) Olanzapine (Olanzapine) 5 Mg Tablet, 5 MG PO DAILY, (Reported) Tamsulosin HCl (Flomax) 0.4 Mg Capsule, 0.4 MG PO DAILY Tamsulosin HCl (Flomax) 0.4 Mg Capsule, 0.4 MG PO DAILY Scheduled PRN Promethazine HCl (Promethazine HCl) 25 Mg Tablet, 25 MG PO Q4H PRN for NAUSEA OR VOMITING, (Reported) Allergies Coded Allergies: amoxicillin (Verified Allergy, Severe, Hives/Throat Swelling, 06/14/21) chlorpromazine (Verified Allergy, Intermediate, HIVES, 06/14/21) HAS TAKEN COMPAZINE WITH NO ISSUES haloperidol (Verified Allergy, Intermediate, HIVES, 06/14/21) metoclopramide (Verified Allergy, Intermediate, HIVES, 06/14/21) ondansetron (Verified Allergy, Mild, hives, 06/17/21) Penicillins (Verified Allergy, Unknown, 10/10/20) ketorolac (Verified Allergy, Unknown, 01/06/21) ibuprofen (Verified Adverse Reaction, Intermediate, GI Bleed, 06/14/21) prochlorperazine (Verified Adverse Reaction, Mild, 06/14/21) Itchy - but can use benedryl as premedicate ZAY SESAY MD Jul 04, 2021 18:09
[2021-07-04] MEDS ORDERED: LIDOCAINE 5% (LIDODERM) PATCH TD SCH (21:00)
[2021-07-05] MEDS ORDERED: **NOTE PATIENT COMMENT** MISC XX SCH (09:00)
[2021-07-05] MEDS ORDERED: SODIUM CHLORIDE 0.9% INJ 10 ML SYR IV SCH (09:00)
--- NOTE | 2021-07-05 12:59 | IPN ---
PROGRESS NOTE DATE: 07/03/2021 SUBJECTIVE: Patient seen and examined at the bedside. She complains of left-sided abdominal pain radiating to the flank without dysuria, urgency, frequency, fever, chills or nausea. It is persistent without vomiting. Refusing to eat. Patient this morning told the nurse that she would rather than have this chronic pain. Psychiatry has been consulted to assess the patient for severe depression. Patient currently denies any suicidal ideation, homicidal ideation or plan. OBJECTIVE: VITAL SIGNS: Temperature 98.9, pulse 119, respiratory rate 18, blood pressure 152/108, 99% on room air. GENERAL: Awake, alert, oriented, crying at the bedside, lying in position on her right side. HEENT: Dry mucous membranes. CHEST: Port is noted in left anterior chest without any erythema, tenderness or crepitus. LUNGS: Clear to auscultation without any wheezing, rales or rhonchi. HEART: S1, S2. Sinus tachycardia. ABDOMEN: Soft, nontender, nondistended. Positive bowel sounds. No costovertebral angle (CVA) tenderness. EXTREMITIES: No clubbing, cyanosis or pitting edema. LABORATORY DATA/MICROBIOLOGY/IMAGING STUDIES: Have been reviewed. ASSESSMENT: This is a 26-year-old female admitted on 06/30/2021 who complains of abdominal pain, was found to have uncontrolled type 1 diabetes, had been on insulin drip and has since resolved. CT abdomen and pelvis has no abnormalities. Patient was found to be retaining urine and was started on Flomax, seen by urologist, with Winters catheter placement. Current issues are as follows: 1. Hyperglycemic nonketotic acidosis, resolved. 2. Type 1 diabetes. 3. Persistent abdominal pain with negative trichomonas vaginalis by PCR, negative chlamydia trachomatis DNA on 06/18/2021 and negative gonorrhea DNA. 4. Depression due to chronic pain. PLAN: Patient is medically stable. Her diabetes is under control. For comfort, patient is requesting Dilaudid and intravenous (IV) morphine, but no pathology has been noted. Will recheck urinalysis (UA). Rule out paroxysmal nocturnal hemoglobinuria by checking urine hemosiderin and paroxysmal nocturnal hemoglobinuria (PNH). Continue on Protonix. Lidoderm patch for pain, Scopolamine for nausea, Catapres for hypertension and continue with Levemir 20 units at bedtime. Psychiatrist has been consulted for suicidal statements and for evaluation of severe depression. Xanax has been given for anxiety.
== END 2021-07-04 17:36 | disposition left against medical advice (07) | DRG 639 ==
LOC: M ED 08:51 → M ED INP 15:14 → ENRESERV 15:50 → M ICU 20:11 → M MSPAV 07-01 10:56
PROVIDERS: ADMIT Internal Medicine; ATTEND Internal Medicine
DX: E10.65 Type 1 diabetes mellitus with hyperglycemia (principal); F12.10 Cannabis abuse, uncomplicated; E10.649 Type 1 diabetes mellitus with hypoglycemia without coma; K52.9 Noninfective gastroenteritis and colitis, unspecified; E10.43 Type 1 diabetes mellitus with diabetic autonomic (poly)neuropathy; R33.9 Retention of urine, unspecified; F32.9 Major depressive disorder, single episode, unspecified; Z20.822 Contact with and (suspected) exposure to COVID-19; Z90.49 Acquired absence of other specified parts of digestive tract; Z79.4 Long term (current) use of insulin; Z79.899 Other long term (current) drug therapy; Z88.1 Allergy status to other antibiotic agents; Z88.8 Allergy status to other drugs, medicaments and biological substances; A56.8 Sexually transmitted chlamydial infection of other sites

== ENCOUNTER 2021-07-06 07:58 | Inpatient (IN) | payer OTHER ==
[~2021-07-06] VITALS: Ht 154.9 cm; Wt 52.2 kg
[~2021-07-06 07:58] MED LIST changes: +FLOM0.4C39 PO
[2021-07-06] MEDS ORDERED: PANTOPRAZOLE 40MG VIAL (C9113 PER 1) IV ONE (08:30)
[2021-07-06] MEDS ORDERED: GI COCKTAIL 50ML BTL(HYOSCYAMINE/MAALOX/LIDOCAINE VISCOUS)(1:3:1) PO ONE (08:30)
[2021-07-06] MEDS ORDERED: NS 1,000 ML IV SCH (08:40)
[2021-07-06] MEDS: FLUoxetine 20 MG CAP PO SCH ×2 (09:00→20:24)
[2021-07-06] MEDS: OLANZapine 5 MG TAB PO SCH (09:00)
[2021-07-06 09:09] LABS: VENOUS BASE EXCESS -8.4 (-2.0-2.0); VENOUS HCO3 16.6 MEQ/L (23.0-27.0); VENOUS O2 SATURATION 93.9 % (60.0-80.0); VENOUS PARTIAL PRESSURE CO2 32.5 mmHg (38.0-50.0); VENOUS PARTIAL PRESSURE O2 71.3 mmHg (30.0-50.0); VENOUS PH 7.325 UNITS (7.330-7.430); VENOUS STANDARD HCO3 17.7 MEQ/L; VENOUS TOTAL CO2 17.6 MEQ/L (24.0-28.0)
[2021-07-06] MEDS ORDERED: PROMETHAZINE INJ 25 MG/ML VIAL (J2550) IV ONE (09:10)
[2021-07-06 09:14] LABS: BASO # 0.1 10^3/uL (0.0-0.2); BASO % 0.9 % (0.0-1.0); EOS # 0.1 10^3/uL (0.0-0.5); EOS % 1.3 % (0.0-3.0); HEMATOCRIT 38.3 % (36.0-47.0); HEMOGLOBIN 12.3 g/dl (12.0-15.5); LYMPH # 1.3 10^3/uL (1.5-5.0); LYMPH % 15.5 % (24.0-44.0); MEAN CORPUSCULAR HEMOGLOBIN 27.1 pg (27.0-33.0); MEAN CORPUSCULAR HGB CONC 32.1 g/dl (32.0-36.5); MEAN CORPUSCULAR VOLUME 84.4 fl (80.0-96.0); MONO # 0.3 10^3/uL (0.0-0.8); NEUTROPHILS # 6.6 10^3/uL (1.5-8.5); NEUTROPHILS % 78.1 % (36.0-66.0); PLATELET COUNT, AUTOMATED 240 10^3/uL (150-450); RED BLOOD COUNT 4.54 10^6/uL (4.00-5.40); WHITE BLOOD COUNT 8.4 10^3/uL (4.0-10.0)
[2021-07-06 09:42] LABS: HCG, SERUM QUALITATIVE NEGATIVE (NEGATIVE)
[2021-07-06] MEDS ORDERED: MORPHINE 4 MG/ML 1ML VIAL/SYRINGE (J2270) IV ONE (09:50)
[2021-07-06 09:52] LABS: ALBUMIN 3.2 GM/DL (3.2-5.2); ALT/SGPT 31 U/L (12-78); BILIRUBIN,DIRECT 0.1 MG/DL (0.0-0.2); BILIRUBIN,TOTAL 0.5 MG/DL (0.2-1.0); BLOOD UREA NITROGEN 6 MG/DL (7-18); CALCIUM LEVEL 8.6 MG/DL (8.5-10.1); CARBON DIOXIDE LEVEL 17 MEQ/L (21-32); CHLORIDE LEVEL 99 MEQ/L (98-107); CREATININE FOR GFR 0.89 MG/DL (0.55-1.30); GLOMERULAR FILTRATION RATE > 60.0 (>60); GLUCOSE, FASTING 538 MG/DL (70-100); LIPASE 86 U/L (73-393); POTASSIUM SERUM 4.7 MEQ/L (3.5-5.1); SODIUM LEVEL 132 MEQ/L (136-145); TOTAL PROTEIN 6.4 GM/DL (6.4-8.2)
[2021-07-06] MEDS ORDERED: HumuLIN R (REGULAR) INSULIN (NovoLIN R) **100U/ML** PER UNIT IV ONE ×2 (09:55→12:05)
[2021-07-06] MEDS ORDERED: ISOVUE-370 76% 100ML VIAL As Ordered ONE (09:58)
--- NOTE | 2021-07-06 10:45 | REP ---
INDICATION: gen abd pain. COMPARISON: Comparison CT angiography of the abdomen and pelvis July 02, 2021. CT study of the abdomen and pelvis is reviewed from June 30, 2021. TECHNIQUE: Helical scanning was acquired and 4 mm axial images are re-formatted. Coronal and sagittal MPR images were generated and reviewed. The contrast enhancement dose is 100 mL of intravenous Isovue 370. FINDINGS: Preliminary digital turning lathe tender radiograph shows an unremarkable bowel gas pattern. The lung bases are clear on axial CT images. There is no evidence of pleural effusion or upper abdominal ascites. The liver and the spleen are normal in size homogeneous in texture. The gallbladder surgically absent with clips in the gallbladder fossa. No abnormality is noted in the pancreas. Normal adrenal glands are seen. Kidneys enhance symmetrically. There is minimal fullness in the intrarenal collecting systems and ureters. The urinary bladder is again noted to be quite dilated similar to its appearance on June 30, 2021 consistent with bladder outlet obstruction/urinary retention. There is a small quantity of physiologic fluid in the cul-de-sac. No focal uterine mass is seen. Ovaries are normal. Small and large bowel loops are unremarkable. No free fluid or free intraperitoneal air is seen. The appendix is surgically absent. IMPRESSION: Bladder outlet obstruction/urinary retention pattern with marked distension of the urinary bladder and minimal bilateral hydronephrosis. Post appendectomy and cholecystectomy. Otherwise negative. <Electronically signed by Akil Cortés > 07/06/21 104
[2021-07-06] MEDS ORDERED: diphenhydrAMINE 50MG/ML VIAL (J1200) IV STA (10:58)
[2021-07-06] MEDS ORDERED: PROCHLORPERAZINE 10MG/2ML VIAL (J0780 PER 1) IV ONE (11:00)
[2021-07-06 11:03] LABS: RSV AMPLIFICATION NEGATIVE (NEGATIVE)
[2021-07-06] MEDS ORDERED: DOXY100T PO (11:15)
[2021-07-06] MEDS ORDERED: HOME MED LIST COMPLETE! XX SCH (11:20)
[2021-07-06 11:56] LABS: ACETONE/KETONE > 46.00 MG/DL (<2.81)
[2021-07-06] MEDS ORDERED: POTASSIUM CHLORIDE INJ 20 MEQ in NS 1,000 ML IV ONE (12:05)
[2021-07-06] MEDS ORDERED: INSULIN REGULAR IN 0.9 % NACL 100 UNIT in IV 1 EA IV SCH ×2 (12:05)
[2021-07-06 12:11] LABS: OSMOLALITY SERUM 308 MOSM/KG (275-295)
[2021-07-06] MEDS ORDERED: KCL 20MEQ in NS 1000ML 1,000 ML IV SCH ×2 (12:30→21:40)
--- NOTE | 2021-07-06 12:51 | HPEPDOC ---
[facility] Medical History & Physical Date of Admission Jul 06, 2021 Date of Service: Jul 06, 2021 Attending Physician: MARCELINO AGGARWAL DO History and Physical CHIEF COMPLAINT: Abdominal pain HISTORY OF PRESENT ILLNESS: Patient is a 26-year-old female presents to the hospital today with a chief complaint of upper left quadrant abdominal pain. Patient was recently hospitalized with abdominal pain and left AGAINST MEDICAL ADVICE on 07/04/2021. Patient came to the ER today as the abdominal pain continued and she was vomiting more more. Patient was also feeling nauseous and said the pain had increased. Patient is a type I diabetic and has not been eating or taking her insulin. Patient was found to be in diabetic ketoacidosis today. Patient has been recently hospitalized with this being her third ho spitalization since the middle of May 2021. Patient was found to have a distended bladder with bilateral hydronephrosis on her last admission and a Winters catheter had been placed. Patient was supposed to keep the Winters catheter in but when she left AGAINST MEDICAL ADVICE, she requested the Winters be removed. In the emergency department today, patient had a distended bladder that needed a Winters catheter placed. Once the catheter was placed by 800 cc urine drained out of the bladder. 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 Patient went to a hospital in [place], [place] where she had hospitalization for DKA a little more than a year ago. Patient also states that she had a gastric emptying study 5 years ago which was negative. She says this was done in [facility]. Patient denies any bloody vomitus and states she has vomited about 4 times today. Patient denies having any diarrhea or constipation. PAST MEDICAL HISTORY: 1. Type 1 diabetes, diagnosed when she was 11 years old 2. Gastroparesis. 3. Anxiety. PAST SURGICAL HISTORY: 1. Cholecystectomy. 2. Appendectomy. 3. Tonsillectomy. SOCIAL HISTORY: Patient currently lives on [address] with her who is active duty . Patient denies smoking or drinking alcohol. Patient states she would use marijuana to help with her nausea but quit doing this about 2 weeks ago. FAMILY HISTORY: Patient denies any family history. ALLERGIES: Please see below. REVIEW OF SYSTEMS: General: Patient denies fevers HEENT: Patient denies headaches Cardiovascular: Patient denies chest pain Respiratory: Patient denies shortness of breath, cough GI: Patient reports a constant abdominal pain that is worse with eating in her left upper quadrant, reports nausea and vomiting but denies diarrhea : Patient denies increased frequency or pain with urination Extremities: Patient denies swelling or pain in extremities Neurological: Patient denies numbness or tingling in legs Skin: Patient denies any new rashes or lesions. Hematologic: Patient denies any easy bruising. Lymphatic: Patient denies any lumps lumps or bumps in neck, axilla, or groin HOME MEDICATIONS: Please see below. PHYSICAL EXAMINATION: VITAL SIGNS: Temperature 98.2, pulse 125, respiratory rate 15, blood pressure 135/88, pulse oximetry 98% on room air. General: Alert and oriented female patient who was laying face down with a large blanket over her when I walked in the room. Patient not appear to be in any acute distress. HEENT: Normocephalic, atraumatic, moist mucous membranes. Neck: No lymphadenopathy or thyromegaly Cardiac: Regular rate and rhythm, no murmurs, normal S1, normal S2 Pulm: Clear to auscultation bilaterally. No wheezes, rhonchi, rales Abd: Nondistended, tender to palpation especially in the left upper quadrant, normal bowel sounds, no rebound tenderness Ext: No edema bilateral lower extremities Neuro: Patient was able to move all 4 extremities on command and reported equal sensation light touch in all 4 extremities. Skin: Skin of the head, neck, upper and lower extremities was examined did not show any evidence of rash or wounds. LABORATORY DATA: See below. IMAGING: CT of the abdomen pelvis with IV contrast only performed on 07/06/2021 is reported to show bladder outlet obstruction/urinary retention pattern with m arked distention of the urinary bladder and minimal bilateral hydronephrosis. Post appendectomy and cholecystectomy. Otherwise negative MICROBIOLOGY: Please see below. ASSESSMENT: Patient is a 26-year-old female who presents with intractable abdominal pain who was found to be in diabetic ketoacidosis. . PLAN: 1. Diabetic ketoacidosis. Patient had an elevated blood sugar above 500 and had positive beta hydroxybutyrate with a mild gap and low bicarb on BMP. Patient will be admitted and placed in the ICU with insulin drip. If the patient's blood sugar drops below 200, D5 will be added to the fluids. Patient will continue on the insulin drip until the patient's gap has closed. Patient was also mildly acidotic. This may be exacerbating her already underlying abdominal pain that had been previously worked up in prior admissions. Once the patient's gap is closed, patient can be transitioned to her home insulin and be given food. 2. Abdominal pain. Patient's abdominal pain in the left upper quadrant seems to be consistent with gastroparesis secondary to her diabetes. Patient had an extensive work-up that I reviewed the imaging reports for over her past [address] angiogram of the abdominal arteries which did not show any stenosis or occlusion. Patient has listed allergies to all prokinetic agents and I asked if she had ever been on erythromycin she said it gave her yeast infections. Patient did not want to take any of the medications that I had offered her for prokinetic agents and was asking for morphine and/or Dilaudid. I did try to explain to the patient that both morphine and Dilaudid slowed down the gastrointestinal tract which would make her gastroparesis worse however, the patient states that these medications work for her last time. At this time, patient received a dose of Phenergan and will continue with IV Benadryl for nausea improvement. Once the patient's DKA is resolved, patient will need to continue with outpatient work-up for abdominal pain. 3. Urinary retention. Patient has Winters placed and will need to be discharged with this Winters catheter. Patient will need to follow-up with urology outpatient to get to the bottom of why she is having urinary retention. 4. Anxiety. Patient met with psychiatry at the last visit due to statements saying that she would rather than being this pain. Psychiatry cleared her of suicidal ideations as she is making a statement due to her pain. We will continue with her home anxiety medications at this time. 5. DVT prophylaxis: Teds and sequentials 6. CODE STATUS: Full code Disposition: Patient will be admitted to the intensive care unit and can be transferred out of the ICU once her DKA is resolved. Vital Signs Vital Signs Date Time Temp Pulse Resp B/P (MAP) Pulse Ox O2 Delivery O2 Flow Rate FiO2 07/06/21 09:51 15 Room Air 07/06/21 07:58 98.2 125 135/88 (104) 98 Laboratory Data Labs 24H Laboratory Tests 2 07/06/21 08:40: Immature Granulocyte % (Auto) 0.2, Neutrophils (%) (Auto) 78.1H, Lymphocytes (%) (Auto) 15.5L, Monocytes (%) (Auto) 4.0, Eosinophils (%) (Auto) 1.3, Basophils (%) (Auto) 0.9, Neutrophils # (Auto) 6.6, Lymphocytes # (Auto) 1.3L, Monocytes # (Auto) 0.3, Eosinophils # (Auto) 0.1, Basophils # (Auto) 0.1, Nucleated Red Blood Cells % (auto) 0.0, Blood Gas Bicarbonate Standard 17.7, Venous Blood pH 7.325L, Venous Blood Partial Pressure CO2 32.5L, Venous Blood Partial Pressure O2 71.3H, Venous Blood Total Carbon Dioxide 17.6L, Venous Blood HCO3 16.6L, Venous Blood Oxygen Saturation 93.9H, Venous Blood Base Excess -8.4L, Anion Gap 16, Glomerular Filtration Rate > 60.0, Osmolality 308H, Calcium Level 8.6, Total Bilirubin 0.5, Direct Bilirubin 0.1, Aspartate Amino Transf (AST/SGOT) 17, Alanine Aminotransferase (ALT/SGPT) 31, Alkaline Phosphatase 101, Total Protein 6.4, Albumin 3.2#, Albumin/Globulin Ratio 1.0L, Lipase 86, Human Chorionic Gonadotropin, Qual NEGATIVE, B-Hydroxybutyrate > 46.00H 07/06/21 10:06: Coronavirus (COVID-19)(PCR) NEGATIVE, Influenza Type A (RT-PCR) NEGATIVE, Influenza Type B (RT-PCR) NEGATIVE, Respiratory Syncytial Virus (PCR) NEGATIVE 07/06/21 11:13: Bedside Glucose (Misc Panel) 380H CBC/BMP Laboratory Tests 07/06/21 08:40 Home Medications Scheduled Ciprofloxacin HCl (Cipro) 500 Mg Tablet, 500 MG PO BID Doxycycline Hyclate (Doxycycline Hyclate) 100 Mg Tablet, 100 MG PO BID Ergocalciferol (Vitamin D2) (Vitamin D2) 50,000 Units Cap, 50,000 UNITS PO QWEEK MONDAYS Fluoxetine HCl (Prozac) 40 Mg Capsule, 40 MG PO BID Insulin Aspart (Novolog) 100 Unit/1 Ml Cartridge, 1 DOSE SC AC PER SLIDING SCALE Insulin Glargine,Hum.rec.anlog (Lantus Solostar) 100 Unit/1 Ml Insuln.pen, 20 UNIT SC QHS Lisinopril (Lisinopril) 10 Mg Tablet, 10 MG PO DAILY Metronidazole (Flagyl) 500 Mg Tablet, 500 MG PO Q8H Olanzapine (Olanzapine) 5 Mg Tablet, 5 MG PO DAILY Scheduled PRN Promethazine HCl (Promethazine HCl) 25 Mg Tablet, 25 MG PO Q4H PRN for NAUSEA OR VOMITING Allergies Coded Allergies: amoxicillin (Verified Allergy, Severe, Hives/Throat Swelling, 06/14/21) chlorpromazine (Verified Allergy, Intermediate, HIVES, 06/14/21) HAS TAKEN COMPAZINE WITH NO ISSUES haloperidol (Verified Allergy, Intermediate, HIVES, 06/14/21) metoclopramide (Verified Allergy, Intermediate, HIVES, 06/14/21) pantoprazole (Verified Allergy, Intermediate, hives, 07/06/21) ondansetron (Verified Allergy, Mild, hives, 06/17/21) Penicillins (Verified Allergy, Unknown, 10/10/20) ketorolac (Verified Allergy, Unknown, 01/06/21) ibuprofen (Verified Adverse Reaction, Intermediate, GI Bleed, 06/14/21) prochlorperazine (Verified Adverse Reaction, Mild, 06/14/21) Itchy - but can use benedryl as premedicate A-FIB/CHADSVASC A-FIB History Current/History of A-Fib/PAF?: No MARCELINO AGGARWAL DO Jul 06, 2021 12:51
[2021-07-06] MEDS ORDERED: PROMETHAZINE 25 MG TAB PO PRN (12:55)
[2021-07-06 13:38] LABS: VENOUS BASE EXCESS -8.9 (-2.0-2.0); VENOUS HCO3 15.9 MEQ/L (23.0-27.0); VENOUS O2 SATURATION 98.7 % (60.0-80.0); VENOUS PARTIAL PRESSURE CO2 31.1 mmHg (38.0-50.0); VENOUS PARTIAL PRESSURE O2 140.3 mmHg (30.0-50.0); VENOUS PH 7.327 UNITS (7.330-7.430); VENOUS STANDARD HCO3 17.4 MEQ/L; VENOUS TOTAL CO2 16.9 MEQ/L (24.0-28.0)
[2021-07-06 14:10] LABS: BLOOD UREA NITROGEN 5 MG/DL (7-18); CALCIUM LEVEL 8.3 MG/DL (8.5-10.1); CARBON DIOXIDE LEVEL 17 MEQ/L (21-32); CHLORIDE LEVEL 100 MEQ/L (98-107); CREATININE FOR GFR 0.85 MG/DL (0.55-1.30); GLOMERULAR FILTRATION RATE > 60.0 (>60); GLUCOSE, FASTING 397 MG/DL (70-100); PHOSPHORUS LEVEL 2.4 MG/DL (2.5-4.9); POTASSIUM SERUM 4.6 MEQ/L (3.5-5.1); SODIUM LEVEL 134 MEQ/L (136-145)
[2021-07-06 14:11] LABS: OSMOLALITY SERUM 305 MOSM/KG (275-295)
[2021-07-06 15:30] VITALS: BP 114/73
[2021-07-06 15:57] LABS: VENOUS BASE EXCESS -8.2 (-2.0-2.0); VENOUS HCO3 16.9 MEQ/L (23.0-27.0); VENOUS PARTIAL PRESSURE CO2 33.5 mmHg (38.0-50.0); VENOUS PARTIAL PRESSURE O2 51.4 mmHg (30.0-50.0); VENOUS STANDARD HCO3 17.7 MEQ/L; VENOUS TOTAL CO2 17.9 MEQ/L (24.0-28.0)
[2021-07-06] MEDS: diphenhydrAMINE 50MG/ML VIAL (J1200) IV PRN (16:12)
[2021-07-06 16:22] LABS: BLOOD UREA NITROGEN 5 MG/DL (7-18); CALCIUM LEVEL 8.1 MG/DL (8.5-10.1); CARBON DIOXIDE LEVEL 19 MEQ/L (21-32); CHLORIDE LEVEL 104 MEQ/L (98-107); CREATININE FOR GFR 0.74 MG/DL (0.55-1.30); GLOMERULAR FILTRATION RATE > 60.0 (>60); GLUCOSE, FASTING 286 MG/DL (70-100); PHOSPHORUS LEVEL 2.2 MG/DL (2.5-4.9); POTASSIUM SERUM 4.3 MEQ/L (3.5-5.1); SODIUM LEVEL 137 MEQ/L (136-145)
[2021-07-06 16:26] LABS: OSMOLALITY SERUM 298 MOSM/KG (275-295)
[2021-07-06] MEDS: INSULIN IV RATE CHANGE DOCUMENTATION ML/HR XX SCH ×6 (16:54→22:02)
[2021-07-06] MEDS ORDERED: KCL 20MEQ IN D5/NS 1000ML 1,000 ML IV SCH (17:05)
[2021-07-06 19:50] VITALS: BP 122/74
[2021-07-06 20:26] LABS: VENOUS BASE EXCESS -2.9 (-2.0-2.0); VENOUS HCO3 21.6 MEQ/L (23.0-27.0); VENOUS O2 SATURATION 96.5 % (60.0-80.0); VENOUS PARTIAL PRESSURE CO2 36.6 mmHg (38.0-50.0); VENOUS PARTIAL PRESSURE O2 83.2 mmHg (30.0-50.0); VENOUS PH 7.388 UNITS (7.330-7.430); VENOUS TOTAL CO2 22.7 MEQ/L (24.0-28.0)
[2021-07-06 21:00] LABS: BLOOD UREA NITROGEN 4 MG/DL (7-18); CALCIUM LEVEL 7.8 MG/DL (8.5-10.1); CARBON DIOXIDE LEVEL 24 MEQ/L (21-32); CHLORIDE LEVEL 109 MEQ/L (98-107); CREATININE FOR GFR 0.68 MG/DL (0.55-1.30); GLOMERULAR FILTRATION RATE > 60.0 (>60); GLUCOSE, FASTING 150 MG/DL (70-100); PHOSPHORUS LEVEL 1.7 MG/DL (2.5-4.9); POTASSIUM SERUM 4.1 MEQ/L (3.5-5.1); SODIUM LEVEL 141 MEQ/L (136-145)
[2021-07-06] MEDS ORDERED: HumaLOG INSULIN (NovoLOG) PER UNIT SC SCH (21:00)
[2021-07-06] MEDS ORDERED: MORPHINE 2 MG/ML 1ML VIAL (J2270) IV ONE (21:25)
[2021-07-06] MEDS ORDERED: LEVEMIR (INSULIN DETEMIR) 1 UNITS/0.01ML SC ONE (21:25)
[2021-07-06] MEDS ORDERED: GLUCOSE 4GM CHEW TABLET PO PRN (23:10)
[2021-07-06] MEDS ORDERED: GLUCAGON INJ 1MG VIAL SC PRN (23:10)
[2021-07-06] MEDS ORDERED: DEXTROSE 50% 50 ML SYRINGE IV PRN (23:10)
[2021-07-07] VITALS: BP 120/70
[2021-07-07 04:00] VITALS: BP 116/64
[2021-07-07] MEDS: diphenhydrAMINE 50MG/ML VIAL (J1200) IV PRN (04:50)
[2021-07-07 05:37] LABS: OSMOLALITY SERUM 283 MOSM/KG (275-295)
[2021-07-07 05:38] LABS: BLOOD UREA NITROGEN 3 MG/DL (7-18); CARBON DIOXIDE LEVEL 26 MEQ/L (21-32); CHLORIDE LEVEL 109 MEQ/L (98-107); CREATININE FOR GFR 0.58 MG/DL (0.55-1.30); GLOMERULAR FILTRATION RATE > 60.0 (>60); GLUCOSE, FASTING 69 MG/DL (70-100); MAGNESIUM LEVEL 1.7 MG/DL (1.8-2.4); POTASSIUM SERUM 4.3 MEQ/L (3.5-5.1); SODIUM LEVEL 141 MEQ/L (136-145)
[2021-07-07 05:39] LABS: PHOSPHORUS LEVEL 2.8 MG/DL (2.5-4.9)
[2021-07-07] MEDS ORDERED: HumaLOG INSULIN (NovoLOG) PER UNIT SC SCH (07:30)
[2021-07-07] MEDS ORDERED: SODIUM CHLORIDE 0.9% INJ 10 ML SYR IV PRN (07:30)
[2021-07-07 08:00] VITALS: BP 130/96
[2021-07-07] MEDS ORDERED: MAALOX 30 ML SUSP *UDC PO PRN (08:35)
[2021-07-07] MEDS ORDERED: INFLUENZA QUADRIVALENT PF VACCINE 0.5ML SYRINGE IM ONE (09:00)
[2021-07-07] MEDS: FLUoxetine 20 MG CAP PO SCH (09:00)
[2021-07-07] MEDS ORDERED: SODIUM CHLORIDE 0.9% INJ 10 ML SYR IV SCH (09:00)
[2021-07-07] MEDS: OLANZapine 5 MG TAB PO SCH (09:00)
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
[2021-07-07] MEDS ORDERED: LEVEMIR (INSULIN DETEMIR) 1 UNITS/0.01ML SC SCH (21:00)
== END 2021-07-07 09:30 | disposition left against medical advice (07) | DRG 639 ==
LOC: M ED 07:58 → M ED INP 12:01 → M PCU 15:26
PROVIDERS: ADMIT Family Medicine; ATTEND Family Medicine
DX: E10.10 Type 1 diabetes mellitus with ketoacidosis without coma (principal); E10.43 Type 1 diabetes mellitus with diabetic autonomic (poly)neuropathy; R33.9 Retention of urine, unspecified; F41.9 Anxiety disorder, unspecified; Z20.822 Contact with and (suspected) exposure to COVID-19; Z79.4 Long term (current) use of insulin; Z79.899 Other long term (current) drug therapy; Z88.1 Allergy status to other antibiotic agents; Z88.0 Allergy status to penicillin; Z88.6 Allergy status to analgesic agent; Z88.8 Allergy status to other drugs, medicaments and biological substances; Z90.49 Acquired absence of other specified parts of digestive tract; Z91.19 Patient's noncompliance with other medical treatment and regimen; Z91.14 Patient's other noncompliance with medication regimen

== ENCOUNTER 2021-08-12 03:33 | Emergency (ER) | payer OTHER ==
[~2021-08-12] VITALS: Ht 154.9 cm; Wt 55.0 kg
[~2021-08-12 03:33] MED LIST changes: +DOXY100T PO
[2021-08-12 03:34] VITALS: BP 154/88
== END 2021-08-12 03:36 | disposition left against medical advice (07) ==
LOC: M ED 03:33
DX: Z53.21 Procedure and treatment not carried out due to patient leaving prior to being seen by health care provider (principal)

== ENCOUNTER → 2021-10-05 | Outpatient (REF) | payer OTHER ==
[2021-10-05 17:29] LABS: HCG, SERUM QUALITATIVE NEGATIVE (NEGATIVE)
[2021-10-05 17:38] LABS: HCG, SERUM QUANTITATIVE < 1.0 MIU/ML
== END ==
LOC: M LAB REF 16:39
PROVIDERS: ATTEND Physician Assistant Medical
DX: Z36.9 Encounter for antenatal screening, unspecified (principal)

== ENCOUNTER → 2021-10-18 | Outpatient (CLI) | payer OTHER ==
[~2021-10-18] MED LIST changes: +ISOVUE-370 76% 100ML VIAL As Ordered ONE
== END ==
LOC: M RADPRO 11:43
PROVIDERS: ATTEND Obstetrics & Gynecology
DX: N97.9 Female infertility, unspecified (principal)
CPT/HCPCS: 58340; 74740; Q9967